=== PATIENT | male | born 1980 | race Caucasian/White ===

== ENCOUNTER 2017-03-19 17:58 | Inpatient (IN) | payer MEDICAID ==
[2017-03-19] MEDS ORDERED: Sodium Chloride 0.9% 1,000 ML IV ONE (18:09)
--- NOTE | 2017-03-19 18:13 | ED Physician Chart ---
Chief Complaint/HPI - Patient Information Date Seen:: 03/19/17 Time Seen:: 18:10 Chief Complaint:: fever History of Present Illness:: pt w severe MR. nonverbal, pt sent from [place] for fever noted today. no gi sx noted. no uri sx noted. recent uti seen on labs. no neuro changes noted. nonambulatory pt w peg tube and chronic hudson. Allergies:: Allergies Allergy/AdvReac Type Severity Reaction Status Date / Time cephalexin monohydrate Allergy Verified 05/14/16 00:16 [From Keflex] Sulfa (Sulfonamide Allergy Verified 05/14/16 00:16 Antibiotics) Historian:: EMS, Other Review:: Transfer documents Reviewed, Patient unable to respond Past Medical History - Past Medical History Past Medical History: DM, Other (cerebral palsey/MR) Social History: Care Facility Surgical History: PEG/GTube, other (indwelling hudson) Medication: Reviewed Family Medical History - Family Member Mother History Unknown: Yes Physical Exam - Physical Examination General/Constitutional: Awake, Well-developed, well-nourished, Alert, No distress, Non-toxic appearing, Ambulatory Other Gen/Cons comments:: nonverbal pt. alert. contractured b legs. peg tube site ok. no focal acute injury . no abd tndrness. nabs pos. lungs clear. hrt reg no m. no edema Head: Atraumatic Eyes: Lids, conjuctiva normal, PERRL, EOMI Skin: Nl inspection, No rash, No skin lesions, No ecchymosis, Well hydrated, No lymphadenopathy ENMT: External ears, nose nl, Nasal exam nl, Lips, teeth, gums nl Neck: Nontender, Full ROM w/o pain, No JVD, No nuchal rigidity, No bruit, No mass, No stridor Respiratory: Nl effort/Exclusion, Clear to Auscultation, No Wheeze/Rhonchi/Rales Cardio Vascular: RRR, No murmur, gallop, rubs, NL S1 S2 GI: No tenderness/rebounding/guarding, No organomegaly, No hernia, Normal BS's, Nondistended, No mass/bruits, No McBurney tenderness : No CVA tenderness Extremities: No tenderness or effusion, Full ROM, No edema, Normal digits & nails Other Extremities comments:: sev chronic contractures b legs Neuro/Psych: Alert/oriented, DTR's symmetric, Normal sensory exam, Normal motor strength, Mood normal, No focal deficits Misc: normal gait, Normal back, No paraspinal tenderness Labs/Radiology/EKG Results - Lab Results Results: Laboratory Tests 03/19/17 03/19/17 18:22 18:22 WBC 10.2 RBC 4.52 Hgb 13.2 Hct 39.5 MCV 87.3 MCH 29.3 MCHC Differential 33.5 RDW 12.8 Plt Count 224 D MPV 9.0 Neutrophils % 72.0 Lymphocytes % 15.1 L Monocytes % 8.8 Eosinophils % 2.0 Basophils % 2.1 H Sodium 134 L Potassium 3.9 Chloride 101 Carbon Dioxide 26.5 Anion Gap 10.4 BUN 27 H Creatinine 0.7 Est GFR ( Amer) > 60.0 Est GFR (Non-Af Amer) > 60.0 BUN/Creatinine Ratio 38.6 Glucose 110 H Calcium 10.1 Total Bilirubin 0.2 L AST 18 ALT 14 Alkaline Phosphatase 60 Total Protein 7.8 Albumin 3.7 L Globulin 4.1 Albumin/Globulin Ratio 0.9 L - Radiology Results Results: cxr nad ED Septic Shock - . Is Septic Shock (SBP<90, OR Lactate>4 mmol\L) present?: No Reassessment (Disposition) - Reassessment Reassessment:: case dw dr shell...will admit for r/o sepsis. pt eval is complicated by pt having no verbal ability. no obv source seen. ua still pending. suspect uti but advise admit for further work up / observation since pt PE eval is limited. Reassessment Condition:: Unchanged - Diagnosis Diagnosis:: 1 febrile illness 2 r/o sepsis 3 cp/mr pt - Patient Disposition Admitted to:: Med/Surg Condition at Disposition:: Unchanged ED Discharge Plan - Patient Disposition Admit/Discharge/Transfer: Acute Care w/in this hosp
[2017-03-19 18:33] LABS: % BASOPHILS 2.1 % (0.0-2.0); % LYMPHOCYTES 15.1 % (20.0-50.0); % MONOCYTES 8.8 % (2.0-10.0); HEMATOCRIT 39.5 % (39.0-49.0); HEMOGLOBIN 13.2 gm/dL (13.2-17.3); MEAN CELL VOLUME 87.3 fl (80-99); MEAN CORPUSCULAR HEMOGLOBIN 29.3 pg (26.0-30.0); MEAN CORPUSCULAR HGB CONC 33.5 pg (28.0-36.0); NEUTROPHILE ABSOLUTE 7.4 Th/cmm (1.8-8.0); RED BLOOD COUNT 4.52 Mil/cmm (4.30-5.70); RED CELL DISTRIBUTION WIDTH 12.8 % (11.5-20.0); WHITE BLOOD COUNT 10.2 Th/cmm (4.8-10.8)
[2017-03-19 18:39] LABS: PLATELET COUNT 224 Th/cmm (150-400)
[2017-03-19 18:52] LABS: ALB/GLOB RATIO 0.9 (1.0-1.8); ALKALINE PHOSPHATASE 60 U/L (34-104); ANION GAP 10.4 (7.0-16.0); BILIRUBIN,TOTAL 0.2 mg/dL (0.3-1.0); BUN - UREA NITROGEN 27 mg/dL (7-25); BUN/CREATININE RATIO 38.6; CALCIUM SERUM 10.1 mg/dL (8.6-10.3); CARBON DIOXIDE 26.5 mEq/L (21.0-31.0); CHLORIDE 101 mEq/L (98-107); CREATININE - SERUM 0.7 mg/dL (0.7-1.3); GLUCOSE 110 mg/dL (70-105); POTASSIUM SERUM 3.9 mEq/L (3.5-5.1); SGOT 18 U/L (13-39); SGPT/ALT 14 U/L (7-52); SODIUM SERUM 134 mEq/L (136-145)
[2017-03-19] MEDS ORDERED: Albuterol Nebulizer 2.5mg/3mL HHN PRN (21:33)
[2017-03-19] MEDS ORDERED: Magnesium Hydroxide (MOM) 30 mL UDC GT PRN (21:33)
[2017-03-19] MEDS: Sodium Chloride 0.9% 1,000 ML IV SCH (22:01)
[2017-03-19] MEDS: Ciprofloxacin 200mg Premix PB 200 MG/100 ML BAG IV SCH (22:02)
[2017-03-20] MEDS: INSULIN ASPART SLIDING SCALE 100 UNITS/ML UNIT SUBQ SCH ×4 (00:02→18:00)
--- NOTE | 2017-03-20 01:49 | Admit Criteria Form ---
Admit Criteria Forms - Admit Criteria Diagnosis: FEBRILE ILLNESS, WITHOUT FOCAL INFECTION Clinical Indications for Admission to Inpatient Care (Place 'X' for any and all applicable criteria): Admission is indicated for ANY ONE of the following (1)(2)(3): [ ] I. Bacteremia [X ]II. Suspected or identified specific infection requiring hospitalization (eg, meningitis, endocarditis) [ ]III. Hemodynamic instability [ ]IV. Altered mental status [ ]V. Failure or unavailability of outpatient antimicrobial treatment [ ]. Hypoxemia [ ]VII. Seizures [ ]VIII. High-risk febrile neutropenia [ ]IX. Need for parenteral antibiotic in patient who is likely to abuse vascular access device (eg, injection drug user) [A](7) [ ]X. Temperature greater than 104.9 degrees F (40.5 degrees C) (oral) [ ]XI. Inpatient admission required rather than observation care because of ANY ONE of the following: [ ]a) Specific infection identified that is too severe for outpatient treatment or observation care trial [ ]b) Metabolic disorder (eg, hypoglycemia, hyperglycemia, metabolic acidosis) that is severe or persistent [ ]c) Temperature greater than 103.1 degrees F (39.5 degrees C) ( oral) that is not responsive to observation care treatment [ ]d) IV fluid to replace significant ongoing (eg, for over 24 hours) losses (> 3 L/m2 per day) [ ]e) Supplemental oxygen or respiratory treatments for over 24 hours that is performable only in acute inpatient setting [ ]f) Parenteral nutrition regimen need that must be implemented on inpatient basis [ ]g) Strict or protective (eg, laminar flow) isolation [ ]h) Other condition, treatment or monitoring requiring inpatient admission Extended stay beyond goal length of stay may be needed for(1)(3) [ ]a) Sepsis or septic shock(22) [ ]b) Positive blood cultures [ ]c) Insufficient oral intake [ ]d) High-risk febrile neutropenia(29)(30) [ ]e) Continued fever and clinical instability [ ]f) Clinically active comorbid illness (e.g,heart failure, renal failure , diabetes) The original [facility] content created by Chai Schultz has been revised. The portions of the content which have been revised are identified through the use of italic text or in bold, and Chai Schultz has neither reviewed nor approved the modified material. All other unmodified content is copyright [facility]. Please see references footnoted in the original [facility] edition 2016 Admit Criteria Met?: Yes
[2017-03-20 07:51] LABS: % BASOPHILS 0.2 % (0.0-2.0); % EOSINOPHILS 3.1 % (0.0-5.0); % LYMPHOCYTES 19.9 % (20.0-50.0); % MONOCYTES 8.7 % (2.0-10.0); % NEUTROPHILS 68.1 % (40.0-80.0); HEMATOCRIT 38.2 % (39.0-49.0); HEMOGLOBIN 12.7 gm/dL (13.2-17.3); MEAN CORPUSCULAR HEMOGLOBIN 29.2 pg (26.0-30.0); MEAN CORPUSCULAR HGB CONC 33.2 pg (28.0-36.0); MEAN PLATELET VOLUME 8.9 fl; NEUTROPHILE ABSOLUTE 4.7 Th/cmm (1.8-8.0); PLATELET COUNT 226 Th/cmm (150-400); RED BLOOD COUNT 4.34 Mil/cmm (4.30-5.70); RED CELL DISTRIBUTION WIDTH 12.7 % (11.5-20.0)
[2017-03-20 08:00] LABS: WHITE BLOOD COUNT 6.9 Th/cmm (4.8-10.8)
[2017-03-20 08:17] LABS: ALB/GLOB RATIO 0.9 (1.0-1.8); ALKALINE PHOSPHATASE 58 U/L (34-104); ANION GAP 9.7 (7.0-16.0); BILIRUBIN,TOTAL 0.3 mg/dL (0.3-1.0); BUN - UREA NITROGEN 22 mg/dL (7-25); BUN/CREATININE RATIO 36.7; CALCIUM SERUM 9.1 mg/dL (8.6-10.3); CARBON DIOXIDE 23.9 mEq/L (21.0-31.0); CHLORIDE 109 mEq/L (98-107); CREATININE - SERUM 0.6 mg/dL (0.7-1.3); GLUCOSE 111 mg/dL (70-105); MAGNESIUM 2.1 mg/dL (1.9-2.7); POTASSIUM SERUM 3.6 mEq/L (3.5-5.1); SGOT 17 U/L (13-39); SGPT/ALT 12 U/L (7-52); SODIUM SERUM 139 mEq/L (136-145)
--- NOTE | 2017-03-20 09:57 | Diagnostic Imaging Report ---
Portable chest x-ray HISTORY: Fever Compared with prior exam of 03/19/2017, no acute focal pulmonary processes are seen. Allowing for portable technique in a poor inspiration, the heart size is normal. Scoliosis again noted. IMPRESSION: 1. No change with no acute focal pulmonary processes.
--- NOTE | 2017-03-20 09:59 | Diagnostic Imaging Report ---
Portable chest x-ray HISTORY: Fever No focal pulmonary processes. Allowing for a poor inspiration and portable technique, the heart size appears normal. Dilated loops of bowel noted beneath the diaphragm. IMPRESSION: 1. No acute focal pulmonary processes
[2017-03-20] MEDS: Ciprofloxacin 200mg Premix PB 200 MG/100 ML BAG IV SCH ×2 (10:13→20:33)
--- NOTE | 2017-03-20 10:14 | Diagnostic Imaging Report ---
KUB abdominal film HISTORY: Pain Exam demonstrates a severely distended stool-filled ascending colon and rectum. Findings consistent with fecal impaction/constipation. Additional nondilated small and large bowel seen. No free intraperitoneal air. Surgical changes noted about the femoral regions bilaterally. IMPRESSION: 1. Severely distended stool-filled ascending colon and rectum consistent with fecal impaction/constipation.
[2017-03-20] MEDS: Ascorbic Acid 500 mg/5 mL UDC GT SCH (10:15)
[2017-03-20] MEDS ORDERED: VTE Chemical Prophylaxis Screen/Admission MC PRN (10:30)
[2017-03-20] MEDS ORDERED: GLUCAGON HCl 1 MG KIT IM PRN (11:23)
[2017-03-20] MEDS ORDERED: Fleet Enema 135 mL RC PRN ×2 (11:23→11:26)
--- NOTE | 2017-03-20 14:38 | History & Physical ---
ADMIT DATE: 03/19/2017 CHIEF COMPLAINT: Fevers. HISTORY OF PRESENT ILLNESS: This is a 36-year-old gentleman who lives at [facility] who was history of severe mental retardation, cerebral palsy, history of previous episodes of seizure disorder, dysphagia, status post PEG placement, history of previous femur fracture, suprapubic cath placement and stage IV decubitus ulcer who presented to the ER with an episode of fevers. There is no other history available as patient is nonverbal. Workup at the ER was essentially negative, but given his comorbidities, he has been admitted for further management and care. Labs have been essentially negative and we are awaiting UA result. PAST MEDICAL HISTORY: As noted above. PAST SURGERIES: PEG and suprapubic cath placement. FAMILY HISTORY: Unknown. SOCIAL HISTORY: No tobacco, ETOH. Lives at [facility]. ALLERGIES: ROCEPHIN, KEFLEX AND SULFA. OUTPATIENT MEDICATIONS: Insulin sliding scale, milk of magnesia p.r.n., multivitamins every day, oxybutynin 5 mg 3 times a day, calcium with vitamin D twice a day, Senna 5 mL twice a day, Trileptal 300 mg 2 times a day, Tylenol p.r.n. for pain, cranberry juice 30 mL b.i.d. and vitamin C every day. REVIEW OF SYSTEMS: Unable to be done given patient's condition. PHYSICAL EXAMINATION: VITAL SIGNS: Temperature 97.9, he has been afebrile since admission, pulse 85, respirations 18, BP 112/67, satting 95% on room air. GENERAL: Developmentally delayed male, not in acute distress, appears to be comfortable. HEAD AND NECK: There is no JVD or LAD. CARDIOVASCULAR: Regular rate and rhythm without any murmurs. RESPIRATORY: Lungs are clear to auscultation bilaterally. ABDOMEN: Somewhat mildly distended. Normoactive bowel sounds. Soft, supple, nontender. There are no peritoneal signs. PEG tube is in place, appears to be clean, dry and intact. Suprapubic cath in place. LOWER EXTREMITIES: There are contracted, but there is no pedal edema. LABORATORY DATA: CBC was essentially within normal limits with 15% lymphs. Sodium 134, BUN 27. The rest of the chemistry was normal. LFTs were within normal limits. DIAGNOSTICS: Chest x-ray, no acute pulmonary processes, the previous x-ray was March 19, today's x-ray, no changes with no acute focal pulmonary processes. KUB shows severely distended stool filled ascending colon and rectum consistent with fecal impaction and constipation. IMPRESSION: 1. Fever, rule out sepsis. At this stage, possible culprit would be urinary tract infection given his history versus intraabdominal infection given his KUB findings. 2. Fecal impaction, constipation. 3. History of mental retardation/intellectual disability. 4. History of seizure disorder. 5. History of urinary tract infections. 6. History of suprapubic cath placement. PLAN: The patient has been admitted to the medical/surgical floor for further management and care. He has been placed on ciprofloxacin empirically at 200 mg IV q. 12 and IV fluids at 75 mL per hour NS. His medications have been continued. Given his findings on the KUB, I will ask for a Fleet enema and will also give him lactulose and will continue his constipation medications. We will await UA with Rosalee and Yanci. JOB# [id number] [facility]
[2017-03-20] MEDS: Lactulose 10 Gm/15 mL 30mL UDC PO SCH (16:17)
[2017-03-20] MEDS: Sodium Chloride 0.9% 1,000 ML IV SCH (16:24)
[2017-03-20] MEDS: Non-Formulary Item 1 EA (Cran/Vitc/Mannose/Fos/Bromeln [Uti-Stat Liquid] 30 ML) GT SCH (16:31)
[2017-03-20 19:43] LABS: URINE BILIRUBIN NEGATIVE (NEGATIVE); URINE BLOOD MODERATE (NEGATIVE); URINE COLOR YELLOW; URINE GLUCOSE (UA) NEGATIVE (NEGATIVE); URINE KETONE NEGATIVE (NEGATIVE); URINE PH 7.5; URINE PROTEIN 30 mg/dL (NEGATIVE); URINE UROBILINOGEN 0.2 E.U./dL (0.2 - 1.0)
[2017-03-20 19:44] LABS: URINE BACTERIA MANY /hpf (NONE SEEN); URINE EPITHELIAL CELLS FEW /lpf (FEW); URINE TRIPLE PHOSPHATE CRYSTAL MODERATE /hpf (FEW)
[2017-03-20 21:30] LABS: URINE WBC 25-50 /hpf (0-5)
[2017-03-21] MEDS: INSULIN ASPART SLIDING SCALE 100 UNITS/ML UNIT SUBQ SCH ×4 (00:24→19:05)
[2017-03-21 05:33] LABS: % BASOPHILS 0.6 % (0.0-2.0); % EOSINOPHILS 2.2 % (0.0-5.0); % NEUTROPHILS 69.2 % (40.0-80.0); HEMATOCRIT 37.7 % (39.0-49.0); HEMOGLOBIN 12.6 gm/dL (13.2-17.3); MEAN CELL VOLUME 87.2 fl (80-99); MEAN CORPUSCULAR HEMOGLOBIN 29.2 pg (26.0-30.0); MEAN CORPUSCULAR HGB CONC 33.5 pg (28.0-36.0); MEAN PLATELET VOLUME 9.6 fl; NEUTROPHILE ABSOLUTE 4.4 Th/cmm (1.8-8.0); PLATELET COUNT 244 Th/cmm (150-400); RED BLOOD COUNT 4.32 Mil/cmm (4.30-5.70); RED CELL DISTRIBUTION WIDTH 12.9 % (11.5-20.0); WHITE BLOOD COUNT 6.3 Th/cmm (4.8-10.8)
[2017-03-21 05:56] LABS: ANION GAP 10.8 (7.0-16.0); BUN - UREA NITROGEN 16 mg/dL (7-25); CALCIUM SERUM 9.2 mg/dL (8.6-10.3); CARBON DIOXIDE 25.3 mEq/L (21.0-31.0); CHLORIDE 108 mEq/L (98-107); CREATININE - SERUM 0.5 mg/dL (0.7-1.3); GLUCOSE 150 mg/dL (70-105); MAGNESIUM 2.1 mg/dL (1.9-2.7); POTASSIUM SERUM 3.1 mEq/L (3.5-5.1); SODIUM SERUM 141 mEq/L (136-145)
[2017-03-21] MEDS: Lactulose 10 Gm/15 mL 30mL UDC PO SCH ×2 (08:23→16:26)
[2017-03-21] MEDS: Ascorbic Acid 500 mg/5 mL UDC GT SCH (08:23)
[2017-03-21] MEDS: Ciprofloxacin 200mg Premix PB 200 MG/100 ML BAG IV SCH ×2 (08:24→21:55)
[2017-03-21 09:18] LABS: INR 1.03 (0.5-1.4); PROTHROMBIN TIME (TEST) 10.7 SECONDS (9.5-11.5)
[2017-03-21] MEDS: KCL 20mEq/100mL Premix 20 MEQ/100 ML PIGGYBACK IV SCH ×2 (10:42→12:56)
[2017-03-21] MEDS: Non-Formulary Item 1 EA (Cran/Vitc/Mannose/Fos/Bromeln [Uti-Stat Liquid] 30 ML) GT SCH ×2 (12:41→16:26)
[2017-03-21] MEDS: Sodium Chloride 0.9% 1,000 ML IV SCH (12:54)
[2017-03-22] MEDS: INSULIN ASPART SLIDING SCALE 100 UNITS/ML UNIT SUBQ SCH ×4 (01:29→17:21)
[2017-03-22] MEDS: Sodium Chloride 0.9% 1,000 ML IV SCH ×2 (03:55→21:07)
[2017-03-22 05:18] LABS: % BASOPHILS 1.2 % (0.0-2.0); % MONOCYTES 3.6 % (2.0-10.0); % NEUTROPHILS 78.2 % (40.0-80.0); HEMOGLOBIN 12.8 gm/dL (13.2-17.3); MEAN CELL VOLUME 87.2 fl (80-99); MEAN CORPUSCULAR HEMOGLOBIN 29.3 pg (26.0-30.0); MEAN CORPUSCULAR HGB CONC 33.5 pg (28.0-36.0); MEAN PLATELET VOLUME 9.7 fl; NEUTROPHILE ABSOLUTE 7.2 Th/cmm (1.8-8.0); PLATELET COUNT 283 Th/cmm (150-400); RED BLOOD COUNT 4.36 Mil/cmm (4.30-5.70); RED CELL DISTRIBUTION WIDTH 12.8 % (11.5-20.0)
[2017-03-22 05:26] LABS: ANION GAP 11.1 (7.0-16.0); BUN - UREA NITROGEN 12 mg/dL (7-25); CARBON DIOXIDE 23.6 mEq/L (21.0-31.0); CHLORIDE 108 mEq/L (98-107); CREATININE - SERUM 0.5 mg/dL (0.7-1.3); GLUCOSE 118 mg/dL (70-105); SODIUM SERUM 140 mEq/L (136-145)
[2017-03-22 05:38] LABS: WHITE BLOOD COUNT 9.2 Th/cmm (4.8-10.8)
[2017-03-22 06:23] LABS: POTASSIUM SERUM 2.7 mEq/L (3.5-5.1)
--- NOTE | 2017-03-22 08:26 | General Progress Note ---
Subjective - Review of Systems Service Date: 03/22/17 Subjective: Non verbal Objective - Results Result Diagrams: 03/22/17 04:35 03/22/17 04:35 Recent Labs: Laboratory Last Values WBC 9.2 Th/cmm (4.8-10.8) D 03/22/17 04:35 RBC 4.36 Mil/cmm (4.30-5.70) 03/22/17 04:35 Hgb 12.8 gm/dL (13.2-17.3) L 03/22/17 04:35 Hct 38.0 % (39.0-49.0) L 03/22/17 04:35 MCV 87.2 fl (80-99) 03/22/17 04:35 MCH 29.3 pg (26.0-30.0) 03/22/17 04:35 MCHC Differential 33.5 pg (28.0-36.0) 03/22/17 04:35 RDW 12.8 % (11.5-20.0) 03/22/17 04:35 Plt Count 283 Th/cmm (150-400) 03/22/17 04:35 MPV 9.7 fl 03/22/17 04:35 Neutrophils % 78.2 % (40.0-80.0) 03/22/17 04:35 Lymphocytes % 16.0 % (20.0-50.0) L 03/22/17 04:35 Monocytes % 3.6 % (2.0-10.0) 03/22/17 04:35 Eosinophils % 1.0 % (0.0-5.0) 03/22/17 04:35 Basophils % 1.2 % (0.0-2.0) 03/22/17 04:35 PT 10.7 SECONDS (9.5-11.5) 03/21/17 04:40 INR 1.03 (0.5-1.4) 03/21/17 04:40 Sodium 140 mEq/L (136-145) 03/22/17 04:35 Potassium 2.7 mEq/L (3.5-5.1) L* 03/22/17 04:35 Chloride 108 mEq/L (98-107) H 03/22/17 04:35 Carbon Dioxide 23.6 mEq/L (21.0-31.0) 03/22/17 04:35 Anion Gap 11.1 (7.0-16.0) 03/22/17 04:35 BUN 12 mg/dL (7-25) 03/22/17 04:35 Creatinine 0.5 mg/dL (0.7-1.3) L 03/22/17 04:35 Est GFR ( Amer) > 60.0 ml/min (>90) 03/22/17 04:35 Est GFR (Non-Af Amer) > 60.0 ml/min 03/22/17 04:35 BUN/Creatinine Ratio 24.0 03/22/17 04:35 Glucose 118 mg/dL (70-105) H 03/22/17 04:35 POC Glucose 116 MG/DL (70 - 105) H 03/22/17 06:15 Hemoglobin A1c % 6.0 % (4.0-6.0) 03/20/17 07:35 Whole Bld Lactic Acid 0.53 mmol/L (0.60-1.99) L 03/20/17 07:35 Calcium 9.0 mg/dL (8.6-10.3) 03/22/17 04:35 Magnesium 2.1 mg/dL (1.9-2.7) 03/21/17 04:40 Total Bilirubin 0.3 mg/dL (0.3-1.0) 03/20/17 07:35 AST 17 U/L (13-39) 03/20/17 07:35 ALT 12 U/L (7-52) 03/20/17 07:35 Alkaline Phosphatase 58 U/L (34-104) 03/20/17 07:35 Total Protein 7.1 gm/dL (6.0-8.3) 03/20/17 07:35 Albumin 3.4 gm/dL (4.2-5.5) L 03/20/17 07:35 Globulin 3.7 gm/dL 03/20/17 07:35 Albumin/Globulin Ratio 0.9 (1.0-1.8) L 03/20/17 07:35 Urine Source RANDOM 03/20/17 18:50 Urine Color YELLOW 03/20/17 18:50 Urine Clarity HAZY (CLEAR) 03/20/17 18:50 Urine pH 7.5 03/20/17 18:50 Ur Specific [place] 1.015 (1.005-1.030) 03/20/17 18:50 Urine Protein 30 mg/dL (NEGATIVE) H 03/20/17 18:50 Urine Glucose (UA) NEGATIVE mg/dL (NEGATIVE) 03/20/17 18:50 Urine Ketones NEGATIVE mg/dL (NEGATIVE) 03/20/17 18:50 Urine Blood MODERATE (NEGATIVE) H 03/20/17 18:50 Urine Nitrate POSITIVE (NEGATIVE) H 03/20/17 18:50 Urine Bilirubin NEGATIVE (NEGATIVE) 03/20/17 18:50 Urine Urobilinogen 0.2 E.U./dL (0.2 - 1.0) 03/20/17 18:50 Ur Leukocyte Esterase SMALL (NEGATIVE) H 03/20/17 18:50 Urine RBC 5-10 /hpf (0-5) H 03/20/17 18:50 Urine WBC 25-50 /hpf (0-5) H 03/20/17 18:50 Ur Epithelial Cells FEW /lpf (FEW) 03/20/17 18:50 Triple Phos Crystals MODERATE /hpf (FEW) 03/20/17 18:50 Urine Bacteria MANY /hpf (NONE SEEN) 03/20/17 18:50 - Physical Exam Vitals and I&O: Vital Signs Temp 99.6 F 03/22/17 08:00 Pulse 95 03/22/17 08:00 Resp 18 03/22/17 08:00 BP 115/70 03/22/17 08:00 Pulse Ox 96 03/22/17 08:00 Intake & Output 03/21/17 03/22/17 03/22/17 18:59 06:59 18:59 Intake Total 200 1000 360 Output Total 750 Balance 200 1000 -390 Weight (lbs) 57.561 kg 57.561 kg Intake: Intake, IV Amount 200 1000 Ciprofloxacin 200mg 100 Premix PB 200 mg In 100 ml @ 100 mls/hr IV Q12HR HUBERT Rx#:[id number] KCL 20mEq/100mL Premix 20 100 meq In 100 ml @ 50 mls/ hr IV Q2H HUBERT Rx#: [id number] Sodium Chloride 0.9% 1, 1000 000 ml @ 75 mls/hr IV . [id number] HUBERT Rx#:[id number] Tube Feeding 360 Output: Urine 750 Other: # Bowel Movements 1 Active Medications: Current Medications Acetaminophen (Tylenol 650mg/20.3ml Suspension) 650 mg GT Q4HR PRN PRN Reason: Pain Or Fever >99.9 Stop: 05/18/17 21:32 Last Admin: 03/21/17 12:08 Dose: 650 mg Albuterol Sulfate (Albuterol 2.5mg/3ml Neb Ud) 2.5 mg HHN Q4H PRN PRN Reason: Shortness of Breath Ascorbic Acid (Vitamin C) 500 mg GT DAILY [facility] Stop: 05/19/17 08:59 Last Admin: 03/21/17 08:23 Dose: 500 mg Bisacodyl (Dulcolax 10 Mg Supp) 10 mg RC Q96H PRN PRN Reason: Constipation Stop: 05/18/17 21:32 Dextrose (Glutose 40%) 15 gm PO PRN PRN PRN Reason: hypoglycemia Stop: 05/19/17 11:22 Glucagon (Glucagen) 1 mg IM PRN PRN PRN Reason: hypoglycemia Stop: 05/19/17 11:22 Heparin Sodium (Porcine) (Heparin) 5,000 units SUBQ Q12HR [facility] Stop: 05/19/17 20:59 Last Admin: 03/21/17 22:06 Dose: Not Given Ciprofloxacin (Cipro 200mg Premix Pb) 200 mg in 100 mls @ 100 mls/hr IV Q12HR [facility] Stop: 05/18/17 21:59 Last Admin: 03/21/17 21:55 Dose: 100 mls/hr Sodium Chloride (Nacl 0.9%) 1,000 mls @ 75 mls/hr IV .[id number] [facility] Stop: 05/18/17 21:32 Last Admin: 03/22/17 03:55 Dose: 75 mls/hr Potassium Chloride (Potassium Chloride) 20 meq in 100 mls @ 50 mls/hr IV Q2H [facility] Stop: 03/22/17 12:15 Insulin Aspart (Novolog Insulin Sliding Scale) 0 units SUBQ Q6HR HUBERT PRN Reason: Protocol Stop: 05/19/17 00:00 Last Admin: 03/22/17 08:11 Dose: Not Given Lactulose (Cephulac) 30 gm PO BID [facility] Stop: 05/19/17 16:59 Last Admin: 03/21/17 16:26 Dose: 30 gm Magnesium Hydroxide (Milk Of Magnesia) 30 ml GT Q72HR PRN PRN Reason: Constipation Stop: 05/18/17 21:32 Miscellaneous (Vte Chemical Prophylaxis Screen/ Admission) 1 ea MC PRN PRN PRN Reason: PROTOCOL Stop: 05/19/17 10:29 Miscellaneous (Cran/Vitc/Mannose/Fos/Bromeln [Uti-Stat Liquid]) 30 ml GT BID HUBERT Stop: 05/19/17 16:59 Last Admin: 03/21/17 16:26 Dose: Not Given Oxcarbazepine (Trileptal) 300 mg GT BID HUBERT PRN Reason: Protocol Stop: 05/19/17 08:59 Last Admin: 03/21/17 16:25 Dose: 300 mg Oxybutynin Chloride (Ditropan) 5 mg GT TID HUBERT Stop: 05/18/17 21:32 Last Admin: 03/21/17 21:57 Dose: 5 mg Senna (Senna) 8.6 mg GT BID HUBERT Stop: 05/19/17 08:59 Last Admin: 03/21/17 16:25 Dose: 8.6 mg Sodium Phosphate (Fleet Enema) 135 ml RC Q96H PRN PRN Reason: Constipation Stop: 05/19/17 11:22 Sodium Phosphate (Fleet Enema) 135 ml RC PRN PRN PRN Reason: Constipation Stop: 05/19/17 11:25 General: Alert, Other (Non verbal) HEENT: Atraumatic Neck: Supple Cardiovascular: Regular rate Lungs: Clear to auscultation Abdomen: Bowel sounds, Other (A little distended, Suprapubic catheter licking. ) Extremities: Other (No edema) Neurological: Other (Non ambulatory) Skin: Other (Warm and dry) Psych/Mental Status: Other (Confused, non verbal.) - Procedures Procedures: Procedures Procedure Code Date NUBIA SUBQ TISSUE 20 SQ CM/< 30390 06/21/13 INJECT ANTIBIOTIC 99.21 11/07/12 INSERT TEMP BLADDER CATH 97543 11/07/12 NONEXCIS DEBRID OF WOUND, INFECT, OR BURN 86.28 06/21/13 REPLACE INDWELLING CATH 57.95 11/07/12 Assessment/Plan - Problem List Patient Problems: All Active Problems FEVER WITH ABNORMAL LABS AND WBC (Acute) Decubitus ulcer (Active) L89.90 Fever (Active) R50.9 Urine screening abnormal (Active) - Assessment Assessment: Patient is awake, confused, not responding to verbal commands. Suprapubic catheter is licking, Urine continue been dark, he had fever yesterday. Per nurse report patient had a "big" bowel movement. Patient is not going to be transfer to [facility]. - Plan Plan: Awaiting abdominal and pelvic US. Will continue to monitor. Nutritional Asmnt/Malnutr-PDOC - Dietary Evaluation Malnutrition Findings (Please click <Entered> for more info): Nutritional Asmnt/Malnutrition Start: 03/21/17 16: 15 Text: Status: Complete Freq: Document 03/21/17 16:18 GSUN (Rec: 03/21/17 16:25 GSUN [email or web address]) Nutritional Asmnt/Malnutrition Patient General Information Nutritional Screening High Risk Screening Diagnosis Fevere r/o sepsis, possible UTI vs intraabdominal infection, fecal impactio Pertinent Medical Hx/Surgical Hx Severe mental retardation, cerebral palsy, seizure disorder, dysphagia with PEG, femur frature, suprapubic cath placement, stage IV decubitus ulcer Subjective Information 36 year old male from SNF. KUB: severely distended stool-filled colon and rectum. Visited pt with RN at bedside . Pt made eye contact with RD, non-verbal, no significant wasting noted. Obsered tube feeding off at this time. RN stated pt had 1 BM overnight, continues to have fever, abdomen distended but soft. Pt tolerating tube feeding well per RN notes and assessments. Current Diet Order/ Nutrition Support Diabetisource at 80ml/hr x 16hrs/day Pertinent Medications Vitamin C, Dulcolax, Glutose 40%, Glucagen, Novolog, MOM, Senna, Nacl 0.9%, Fleet Enema Pertinent Labs 03/20: A1c 6 03/21: glucose 150H Nutritional Hx/Data Height 1.55 m Height (Calculated Centimeters) 154.9 Current Weight (lbs) 56.699 kg Weight (Calculated Kilograms) 56.7 Weight (Calculated Grams) 17505.0 [place] Body Weight 112 Weight Status Approriate GI Symptoms GI Symptoms Constipation Usual diet at home [facility]: Glucerna at 80ml/hr x 16hrs/day Skin Integrity/Comment: Rolando Valdivia. 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 Problem Problem Difficulty swallowing related to Etiology dysphagia severe mental retardation aeb Signs/Symptoms: PEG dependent Intervention/Recommendation Comments 1. Continue with SNF order Diabetisource 80ml/hr x 16hrs/ day, providing 1536kcal and 77g protein, meeting nutritional needs. Expected Outcomes/Goals Expected Outcomes/Goals 1. Pt continue to meet 100% of estimated nutritional needs on tube feeding with tolerance .
[2017-03-22] MEDS: Ciprofloxacin 200mg Premix PB 200 MG/100 ML BAG IV SCH ×2 (09:15→21:00)
[2017-03-22] MEDS: Ascorbic Acid 500 mg/5 mL UDC GT SCH (10:45)
[2017-03-22] MEDS: Lactulose 10 Gm/15 mL 30mL UDC PO SCH ×2 (10:45→17:21)
[2017-03-22] MEDS: KCL 20mEq/100mL Premix 20 MEQ/100 ML PIGGYBACK IV SCH ×2 (11:02→13:19)
[2017-03-22] MEDS: Non-Formulary Item 1 EA (Cran/Vitc/Mannose/Fos/Bromeln [Uti-Stat Liquid] 30 ML) GT SCH ×2 (11:33→17:23)
[2017-03-23] MEDS: INSULIN ASPART SLIDING SCALE 100 UNITS/ML UNIT SUBQ SCH ×4 (00:05→18:18)
[2017-03-23 07:19] LABS: HEMATOCRIT 37.8 % (39.0-49.0); HEMOGLOBIN 12.6 gm/dL (13.2-17.3); MEAN CELL VOLUME 87.3 fl (80-99); MEAN CORPUSCULAR HEMOGLOBIN 29.1 pg (26.0-30.0); MEAN CORPUSCULAR HGB CONC 33.3 pg (28.0-36.0); MEAN PLATELET VOLUME 9.1 fl; NEUTROPHILE ABSOLUTE 12.7 Th/cmm (1.8-8.0); PLATELET COUNT 292 Th/cmm (150-400); RED BLOOD COUNT 4.34 Mil/cmm (4.30-5.70); RED CELL DISTRIBUTION WIDTH 12.7 % (11.5-20.0)
[2017-03-23 07:34] LABS: ALB/GLOB RATIO 0.9 (1.0-1.8); ALKALINE PHOSPHATASE 52 U/L (34-104); ANION GAP 8.7 (7.0-16.0); BILIRUBIN,TOTAL 0.3 mg/dL (0.3-1.0); BUN - UREA NITROGEN 14 mg/dL (7-25); CALCIUM SERUM 8.9 mg/dL (8.6-10.3); CHLORIDE 107 mEq/L (98-107); CREATININE - SERUM 0.4 mg/dL (0.7-1.3); GLUCOSE 152 mg/dL (70-105); SGOT 17 U/L (13-39); SGPT/ALT 14 U/L (7-52); SODIUM SERUM 138 mEq/L (136-145)
[2017-03-23 07:35] LABS: WHITE BLOOD COUNT 14.1 Th/cmm (4.8-10.8)
[2017-03-23 07:51] LABS: POTASSIUM SERUM 2.7 mEq/L (3.5-5.1)
[2017-03-23 07:59] LABS: URINE COLOR YELLOW; URINE GLUCOSE (UA) NEGATIVE (NEGATIVE)
[2017-03-23 08:00] LABS: URINE BILIRUBIN NEGATIVE (NEGATIVE); URINE KETONE NEGATIVE (NEGATIVE); URINE PROTEIN 100 mg/dL (NEGATIVE); URINE UROBILINOGEN 0.2 E.U./dL (0.2 - 1.0)
[2017-03-23 08:03] LABS: URINE EPITHELIAL CELLS FEW /lpf (FEW); URINE WBC 25-50 /hpf (0-5)
[2017-03-23 08:04] LABS: URINE BACTERIA 2+ /hpf (NONE SEEN)
[2017-03-23 08:08] LABS: URINE BLOOD MODERATE (NEGATIVE)
[2017-03-23 08:09] LABS: TOTAL CELLS COUNTED 100
[2017-03-23 08:10] LABS: BAND NEUTROPHILE 7 % (0-10); NEUTROPHILS 79 % (40-80); PLATELET ESTIMATE ADEQUATE (NORMAL)
[2017-03-23] MEDS: Ciprofloxacin 200mg Premix PB 200 MG/100 ML BAG IV SCH ×2 (09:00→20:54)
[2017-03-23] MEDS: Ascorbic Acid 500 mg/5 mL UDC GT SCH (09:02)
--- NOTE | 2017-03-23 09:10 | Diagnostic Imaging Report ---
Renal ultrasound HISTORY: Hematuria The right kidney is normal in size (10.5 x 4.9 x 5.5 cm). No focal parenchymal lesions. Mild dilatation of the right renal collecting system. The left kidney is normal in size (11.8 x 5.2 x 5.1 cm). No definite focal lesions. No hydronephrosis. The urinary bladder cannot be evaluated due to lack of distention the presence of a Li catheter. IMPRESSION: 1. Mild dilatation of the right renal collecting system 2. No focal parenchymal renal lesions
[2017-03-23] MEDS: Lactulose 10 Gm/15 mL 30mL UDC PO SCH ×2 (09:13→21:08)
[2017-03-23] MEDS ORDERED: Potassium Chloride 40 MEQ, Lidocaine 1% 20mL Vial 25 MG in Sodium Chloride 0.9% 250 ML IV ONE (10:22)
--- NOTE | 2017-03-23 12:05 | General Progress Note ---
Subjective - Review of Systems Service Date: 03/23/17 Subjective: Non verbal Objective - Results Result Diagrams: 03/23/17 06:43 03/23/17 06:43 Recent Labs: Laboratory Last Values WBC 14.1 Th/cmm (4.8-10.8) H D 03/23/17 06:43 RBC 4.34 Mil/cmm (4.30-5.70) 03/23/17 06:43 Hgb 12.6 gm/dL (13.2-17.3) L 03/23/17 06:43 Hct 37.8 % (39.0-49.0) L 03/23/17 06:43 MCV 87.3 fl (80-99) 03/23/17 06:43 MCH 29.1 pg (26.0-30.0) 03/23/17 06:43 MCHC Differential 33.3 pg (28.0-36.0) 03/23/17 06:43 RDW 12.7 % (11.5-20.0) 03/23/17 06:43 Plt Count 292 Th/cmm (150-400) 03/23/17 06:43 MPV 9.1 fl 03/23/17 06:43 Neutrophils % 78.2 % (40.0-80.0) 03/22/17 04:35 Band Neutrophils % 7 % (0-10) 03/23/17 06:43 Lymphocytes % 16.0 % (20.0-50.0) L 03/22/17 04:35 Monocytes % 3.6 % (2.0-10.0) 03/22/17 04:35 Eosinophils % 1.0 % (0.0-5.0) 03/22/17 04:35 Basophils % 1.2 % (0.0-2.0) 03/22/17 04:35 Neutrophils (Manual) 79 % (40-80) 03/23/17 06:43 Lymphocytes 10 % (20-50) L 03/23/17 06:43 Monocytes 4 % (2-10) 03/23/17 06:43 Platelet Estimate ADEQUATE (NORMAL) 03/23/17 06:43 PT 10.7 SECONDS (9.5-11.5) 03/21/17 04:40 INR 1.03 (0.5-1.4) 03/21/17 04:40 Sodium 138 mEq/L (136-145) 03/23/17 06:43 Potassium 2.7 mEq/L (3.5-5.1) L* 03/23/17 06:43 Chloride 107 mEq/L (98-107) 03/23/17 06:43 Carbon Dioxide 25.0 mEq/L (21.0-31.0) 03/23/17 06:43 Anion Gap 8.7 (7.0-16.0) 03/23/17 06:43 BUN 14 mg/dL (7-25) 03/23/17 06:43 Creatinine 0.4 mg/dL (0.7-1.3) L 03/23/17 06:43 Est GFR ( Amer) > 60.0 ml/min (>90) 03/23/17 06:43 Est GFR (Non-Af Amer) > 60.0 ml/min 03/23/17 06:43 BUN/Creatinine Ratio 35.0 03/23/17 06:43 Glucose 152 mg/dL (70-105) H 03/23/17 06:43 POC Glucose 141 MG/DL (70 - 105) H 03/23/17 06:03 Hemoglobin A1c % 6.0 % (4.0-6.0) 03/20/17 07:35 Whole Bld Lactic Acid 0.53 mmol/L (0.60-1.99) L 03/20/17 07:35 Calcium 8.9 mg/dL (8.6-10.3) 03/23/17 06:43 Magnesium 2.1 mg/dL (1.9-2.7) 03/21/17 04:40 Total Bilirubin 0.3 mg/dL (0.3-1.0) 03/23/17 06:43 AST 17 U/L (13-39) 03/23/17 06:43 ALT 14 U/L (7-52) 03/23/17 06:43 Alkaline Phosphatase 52 U/L (34-104) 03/23/17 06:43 Total Protein 7.3 gm/dL (6.0-8.3) 03/23/17 06:43 Albumin 3.5 gm/dL (4.2-5.5) L 03/23/17 06:43 Globulin 3.8 gm/dL 03/23/17 06:43 Albumin/Globulin Ratio 0.9 (1.0-1.8) L 03/23/17 06:43 Urine Source [place] 03/23/17 05:30 Urine Color YELLOW 03/23/17 05:30 Urine Clarity HAZY (CLEAR) 03/23/17 05:30 Urine pH 7.0 03/23/17 05:30 Ur Specific [place] 1.020 (1.005-1.030) 03/23/17 05:30 Urine Protein 100 mg/dL (NEGATIVE) H 03/23/17 05:30 Urine Glucose (UA) NEGATIVE mg/dL (NEGATIVE) 03/23/17 05:30 Urine Ketones NEGATIVE mg/dL (NEGATIVE) 03/23/17 05:30 Urine Blood MODERATE (NEGATIVE) H 03/23/17 05:30 Urine Nitrate POSITIVE (NEGATIVE) H 03/23/17 05:30 Urine Bilirubin NEGATIVE (NEGATIVE) 03/23/17 05:30 Urine Urobilinogen 0.2 E.U./dL (0.2 - 1.0) 03/23/17 05:30 Ur Leukocyte Esterase LARGE (NEGATIVE) H 03/23/17 05:30 Urine RBC 5-10 /hpf (0-5) H 03/23/17 05:30 Urine WBC 25-50 /hpf (0-5) H 03/23/17 05:30 Ur Epithelial Cells FEW /lpf (FEW) 03/23/17 05:30 Triple Phos Crystals MODERATE /hpf (FEW) 03/20/17 18:50 Urine Bacteria 2+ /hpf (NONE SEEN) H 03/23/17 05:30 - Physical Exam Vitals and I&O: Vital Signs Temp 100.3 F 03/23/17 11:52 Pulse 101 03/23/17 11:52 Resp 21 03/23/17 11:52 BP 117/78 03/23/17 11:52 Pulse Ox 95 03/23/17 11:52 Intake & Output 03/22/17 03/23/17 03/23/17 18:59 06:59 18:59 Intake Total 1560 100 Output Total 750 1000 Balance 810 -900 Weight (lbs) 57.561 kg 57.153 kg Intake: Intake, IV Amount 1200 100 Ciprofloxacin 200mg 100 100 Premix PB 200 mg In 100 ml @ 100 mls/hr IV Q12HR [facility] Rx#:[id number] KCL 20mEq/100mL Premix 20 100 meq In 100 ml @ 50 mls/ hr IV Q2H [facility] Rx#: [id number] Sodium Chloride 0.9% 1, 1000 000 ml @ 75 mls/hr IV . [id number] [facility] Rx#:[id number] Tube Feeding 360 Output: Urine 750 1000 Other: # Voids 1 # Bowel Movements 1 1 Stool Characteristics Soft Soft Brown Brown Active Medications: Current Medications Acetaminophen (Tylenol 650mg/20.3ml Suspension) 650 mg GT Q4HR PRN PRN Reason: Pain Or Fever >99.9 Stop: 05/18/17 21:32 Last Admin: 03/22/17 15:44 Dose: 650 mg Albuterol Sulfate (Albuterol 2.5mg/3ml Neb Ud) 2.5 mg HHN Q4H PRN PRN Reason: Shortness of Breath Ascorbic Acid (Vitamin C) 500 mg GT DAILY [facility] Stop: 05/19/17 08:59 Last Admin: 03/23/17 09:02 Dose: 500 mg Bisacodyl (Dulcolax 10 Mg Supp) 10 mg RC Q96H PRN PRN Reason: Constipation Stop: 05/18/17 21:32 Dextrose (Glutose 40%) 15 gm PO PRN PRN PRN Reason: hypoglycemia Stop: 05/19/17 11:22 Glucagon (Glucagen) 1 mg IM PRN PRN PRN Reason: hypoglycemia Stop: 05/19/17 11:22 Heparin Sodium (Porcine) (Heparin) 5,000 units SUBQ Q12HR [facility] Stop: 05/19/17 20:59 Last Admin: 03/23/17 09:03 Dose: 5,000 units Ciprofloxacin (Cipro 200mg Premix Pb) 200 mg in 100 mls @ 100 mls/hr IV Q12HR [facility] Stop: 05/18/17 21:59 Last Admin: 03/23/17 09:00 Dose: 100 mls/hr Sodium Chloride (Nacl 0.9%) 1,000 mls @ 75 mls/hr IV .[id number] [facility] Stop: 05/18/17 21:32 Last Admin: 03/22/17 21:07 Dose: 75 mls/hr Potassium Chloride 40 meq/Lidocaine HCl 25 mg/ Sodium Chloride 272.5 mls @ 68 mls/hr IV X1 ONE Stop: 03/23/17 14:22 Last Admin: 03/23/17 11:50 Dose: 68 mls/hr Insulin Aspart (Novolog Insulin Sliding Scale) 0 units SUBQ Q6HR [facility]ERT PRN Reason: Protocol Stop: 05/19/17 00:00 Last Admin: 03/23/17 06:16 Dose: Not Given Lactulose (Cephulac) 30 gm PO BID [facility]UBERT Stop: 05/19/17 16:59 Last Admin: 03/23/17 09:13 Dose: Not Given Magnesium Hydroxide (Milk Of Magnesia) 30 ml GT Q72HR PRN PRN Reason: Constipation Stop: 05/18/17 21:32 Miscellaneous (Vte Chemical Prophylaxis Screen/ Admission) 1 ea PRN PRN PRN Reason: PROTOCOL Stop: 05/19/17 10:29 Miscellaneous (Vancomycin Iv Per Pharmacy) 1 [facility] PRN HUBERT Stop: 05/22/17 11:59 Oxcarbazepine (Trileptal) 300 mg GT BID HUBERT PRN Reason: Protocol Stop: 05/19/17 08:59 Last Admin: 03/23/17 09:16 Dose: 300 mg Oxybutynin Chloride (Ditropan) 5 mg GT TID HUBERT Stop: 05/18/17 21:32 Last Admin: 03/23/17 09:03 Dose: 5 mg Senna (Senna) 8.6 mg GT BID HUBERT Stop: 05/19/17 08:59 Last Admin: 03/23/17 09:02 Dose: 8.6 mg Sodium Phosphate (Fleet Enema) 135 ml RC Q96H PRN PRN Reason: Constipation Stop: 05/19/17 11:22 Sodium Phosphate (Fleet Enema) 135 ml RC PRN PRN PRN Reason: Constipation Stop: 05/19/17 11:25 General: Alert, Other (Confused, non verbal) HEENT: Atraumatic Neck: Supple Cardiovascular: Regular rate Lungs: Clear to auscultation Abdomen: Bowel sounds, Soft Extremities: Other (No edema) Neurological: Other (Non ambulatory) Psych/Mental Status: Other (Confused) - Procedures Procedures: Procedures Procedure Code Date NUBIA SUBQ TISSUE 20 SQ CM/< 83175 06/21/13 INJECT ANTIBIOTIC 99.21 02/09/13 INSERT TEMP BLADDER CATH [id number] 11/07/12 NONEXCIS DEBRID OF WOUND, INFECT, OR BURN 86.28 06/21/13 REPLACE INDWELLING CATH 57.95 11/07/12 Assessment/Plan - Problem List Patient Problems: All Active Problems FEVER WITH ABNORMAL LABS AND WBC (Acute) Decubitus ulcer (Active) L89.90 Fever (Active) R50.9 Urine screening abnormal (Active) - Assessment Assessment: Patient is awake, confused, not responding to verbal commands. Suprapubic catheter is licking, Urine continue been dark, he had fever today. WBC increased. Patient is not going to be transfer to [facility]. - Plan Plan: Vanco is added . Will continue to monitor. Nutritional Asmnt/Malnutr-PDOC - Dietary Evaluation Malnutrition Findings (Please click <Entered> for more info): Nutritional Asmnt/Malnutrition Start: 03/21/17 16: 15 Text: Status: Complete Freq: Document 03/21/17 16:18 GSUN (Rec: 03/21/17 16:25 GSUN [email or web address]) Nutritional Asmnt/Malnutrition Patient General Information Nutritional Screening High Risk Screening Diagnosis Fevere r/o sepsis, possible UTI vs intraabdominal infection, fecal impactio Pertinent Medical Hx/Surgical Hx Severe mental retardation, cerebral palsy, seizure disorder, dysphagia with PEG, femur frature, suprapubic cath placement, stage IV decubitus ulcer Subjective Information 36 year old male from SNF. KUB: severely distended stool-filled colon and rectum. Visited pt with RN at bedside . Pt made eye contact with RD, non-verbal, no significant wasting noted. Obsered tube feeding off at this time. RN stated pt had 1 BM overnight, continues to have fever, abdomen distended but soft. Pt tolerating tube feeding well per RN notes and assessments. Current Diet Order/ Nutrition Support Diabetisource at 80ml/hr x 16hrs/day Pertinent Medications Vitamin C, Dulcolax, Glutose 40%, Glucagen, Novolog, MOM, Senna, Nacl 0.9%, Fleet Enema Pertinent Labs 03/20: A1c 6 03/21: glucose 150H Nutritional Hx/Data Height 1.55 m Height (Calculated Centimeters) 154.9 Current Weight (lbs) 56.699 kg Weight (Calculated Kilograms) 56.7 Weight (Calculated Grams) 81806.0 [place] Body Weight 112 Weight Status Approriate GI Symptoms GI Symptoms Constipation Usual diet at home [facility] SNF: Glucerna at 80ml/hr x 16hrs/day Skin Integrity/Comment: 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 Problem Problem Difficulty swallowing related to Etiology dysphagia severe mental retardation aeb Signs/Symptoms: PEG dependent Intervention/Recommendation Comments 1. Continue with SNF order Diabetisource 80ml/hr x 16hrs/ day, providing 1536kcal and 77g protein, meeting nutritional needs. Expected Outcomes/Goals Expected Outcomes/Goals 1. Pt continue to meet 100% of estimated nutritional needs on tube feeding with tolerance .
[2017-03-24] MEDS: INSULIN ASPART SLIDING SCALE 100 UNITS/ML UNIT SUBQ SCH ×4 (00:05→17:27)
[2017-03-24 07:25] LABS: % BASOPHILS 0.1 % (0.0-2.0); % EOSINOPHILS 4.8 % (0.0-5.0); % MONOCYTES 3.6 % (2.0-10.0); % NEUTROPHILS 71.5 % (40.0-80.0); HEMATOCRIT 35.1 % (39.0-49.0); HEMOGLOBIN 11.8 gm/dL (13.2-17.3); MEAN CELL VOLUME 87.4 fl (80-99); MEAN CORPUSCULAR HEMOGLOBIN 29.4 pg (26.0-30.0); MEAN CORPUSCULAR HGB CONC 33.7 pg (28.0-36.0); MEAN PLATELET VOLUME 9.8 fl; NEUTROPHILE ABSOLUTE 6.7 Th/cmm (1.8-8.0); PLATELET COUNT 259 Th/cmm (150-400); RED BLOOD COUNT 4.02 Mil/cmm (4.30-5.70); RED CELL DISTRIBUTION WIDTH 12.6 % (11.5-20.0)
[2017-03-24 07:37] LABS: WHITE BLOOD COUNT 9.3 Th/cmm (4.8-10.8)
[2017-03-24 07:48] LABS: ALB/GLOB RATIO 0.9 (1.0-1.8); ALKALINE PHOSPHATASE 44 U/L (34-104); ANION GAP 7.6 (7.0-16.0); BILIRUBIN,TOTAL 0.3 mg/dL (0.3-1.0); BUN - UREA NITROGEN 13 mg/dL (7-25); BUN/CREATININE RATIO 32.5; CALCIUM SERUM 8.5 mg/dL (8.6-10.3); CARBON DIOXIDE 26.3 mEq/L (21.0-31.0); CHLORIDE 108 mEq/L (98-107); CREATININE - SERUM 0.4 mg/dL (0.7-1.3); GLUCOSE 122 mg/dL (70-105); SGOT 12 U/L (13-39); SGPT/ALT 9 U/L (7-52); SODIUM SERUM 139 mEq/L (136-145)
[2017-03-24 08:00] LABS: POTASSIUM SERUM 2.9 mEq/L (3.5-5.1)
[2017-03-24] MEDS ORDERED: Potassium Chloride 40 MEQ, Lidocaine 1% 20mL Vial 25 MG in Sodium Chloride 0.9% 250 ML IV ONE (08:45)
[2017-03-24] MEDS: Ascorbic Acid 500 mg/5 mL UDC GT SCH (09:33)
[2017-03-24] MEDS: Lactulose 10 Gm/15 mL 30mL UDC PO SCH ×2 (09:34→17:28)
[2017-03-24] MEDS: Ciprofloxacin 200mg Premix PB 200 MG/100 ML BAG IV SCH ×2 (09:35→22:40)
[2017-03-25] MEDS: INSULIN ASPART SLIDING SCALE 100 UNITS/ML UNIT SUBQ SCH ×4 (00:17→17:30)
[2017-03-25 05:28] LABS: BUN - UREA NITROGEN 14 mg/dL (7-25); CALCIUM SERUM 8.8 mg/dL (8.6-10.3); CARBON DIOXIDE 23.4 mEq/L (21.0-31.0); CHLORIDE 106 mEq/L (98-107); CREATININE - SERUM 0.4 mg/dL (0.7-1.3); GLUCOSE 137 mg/dL (70-105); POTASSIUM SERUM 3.4 mEq/L (3.5-5.1); SODIUM SERUM 136 mEq/L (136-145)
[2017-03-25] MEDS: Ciprofloxacin 200mg Premix PB 200 MG/100 ML BAG IV SCH (09:00)
[2017-03-25] MEDS: KCL 20mEq/100mL Premix 20 MEQ/100 ML PIGGYBACK IV SCH ×2 (09:50→12:15)
[2017-03-25] MEDS: Lactulose 10 Gm/15 mL 30mL UDC PO SCH ×2 (09:55→16:19)
[2017-03-25] MEDS: Ascorbic Acid 500 mg/5 mL UDC GT SCH (09:55)
[2017-03-25] MEDS: Meropenem 1 GM in Sodium Chloride 0.9% 100 ML IV SCH ×2 (10:00→20:54)
[2017-03-26] MEDS: INSULIN ASPART SLIDING SCALE 100 UNITS/ML UNIT SUBQ SCH ×4 (00:15→17:46)
[2017-03-26 05:43] LABS: % BASOPHILS 2.6 % (0.0-2.0); % EOSINOPHILS 6.5 % (0.0-5.0); % LYMPHOCYTES 23.7 % (20.0-50.0); % NEUTROPHILS 62.2 % (40.0-80.0); HEMATOCRIT 35.2 % (39.0-49.0); HEMOGLOBIN 11.8 gm/dL (13.2-17.3); MEAN CELL VOLUME 87.6 fl (80-99); MEAN CORPUSCULAR HEMOGLOBIN 29.3 pg (26.0-30.0); MEAN CORPUSCULAR HGB CONC 33.4 pg (28.0-36.0); MEAN PLATELET VOLUME 10.2 fl; NEUTROPHILE ABSOLUTE 3.8 Th/cmm (1.8-8.0); PLATELET COUNT 263 Th/cmm (150-400); RED BLOOD COUNT 4.02 Mil/cmm (4.30-5.70); RED CELL DISTRIBUTION WIDTH 13.1 % (11.5-20.0)
[2017-03-26 05:49] LABS: WHITE BLOOD COUNT 6.1 Th/cmm (4.8-10.8)
[2017-03-26 05:52] LABS: BUN - UREA NITROGEN 14 mg/dL (7-25); CALCIUM SERUM 8.9 mg/dL (8.6-10.3); CARBON DIOXIDE 24.9 mEq/L (21.0-31.0); CHLORIDE 107 mEq/L (98-107); CREATININE - SERUM 0.4 mg/dL (0.7-1.3); GLUCOSE 117 mg/dL (70-105); MAGNESIUM 2.1 mg/dL (1.9-2.7); POTASSIUM SERUM 3.9 mEq/L (3.5-5.1); SODIUM SERUM 135 mEq/L (136-145)
[2017-03-26] MEDS: Lactulose 10 Gm/15 mL 30mL UDC PO SCH ×2 (08:26→16:39)
[2017-03-26] MEDS: Ascorbic Acid 500 mg/5 mL UDC GT SCH (08:27)
[2017-03-26] MEDS: Meropenem 1 GM in Sodium Chloride 0.9% 100 ML IV SCH ×2 (08:30→20:41)
[2017-03-27] MEDS: INSULIN ASPART SLIDING SCALE 100 UNITS/ML UNIT SUBQ SCH ×3 (00:03→13:19)
[2017-03-27 05:16] LABS: % BASOPHILS 0.5 % (0.0-2.0); % EOSINOPHILS 4.1 % (0.0-5.0); % LYMPHOCYTES 20.3 % (20.0-50.0); % NEUTROPHILS 69.1 % (40.0-80.0); HEMATOCRIT 34.5 % (39.0-49.0); HEMOGLOBIN 11.6 gm/dL (13.2-17.3); MEAN CELL VOLUME 88.2 fl (80-99); MEAN CORPUSCULAR HEMOGLOBIN 29.8 pg (26.0-30.0); MEAN CORPUSCULAR HGB CONC 33.7 pg (28.0-36.0); MEAN PLATELET VOLUME 9.5 fl; NEUTROPHILE ABSOLUTE 4.9 Th/cmm (1.8-8.0); PLATELET COUNT 267 Th/cmm (150-400); RED BLOOD COUNT 3.91 Mil/cmm (4.30-5.70); RED CELL DISTRIBUTION WIDTH 13.3 % (11.5-20.0)
[2017-03-27 05:31] LABS: ANION GAP 6.8 (7.0-16.0); BUN - UREA NITROGEN 15 mg/dL (7-25); BUN/CREATININE RATIO 37.5; CALCIUM SERUM 8.9 mg/dL (8.6-10.3); CHLORIDE 104 mEq/L (98-107); CREATININE - SERUM 0.4 mg/dL (0.7-1.3); GLUCOSE 129 mg/dL (70-105); POTASSIUM SERUM 3.8 mEq/L (3.5-5.1); SODIUM SERUM 134 mEq/L (136-145)
[2017-03-27] MEDS: Lactulose 10 Gm/15 mL 30mL UDC PO SCH ×2 (10:58→17:58)
[2017-03-27] MEDS: Ascorbic Acid 500 mg/5 mL UDC GT SCH (10:59)
[2017-03-27] MEDS: Meropenem 1 GM in Sodium Chloride 0.9% 100 ML IV SCH ×2 (11:01→20:42)
[2017-03-28] MEDS: INSULIN ASPART SLIDING SCALE 100 UNITS/ML UNIT SUBQ SCH ×3 (00:03→12:15)
[2017-03-28 04:59] LABS: % LYMPHOCYTES 20.1 % (20.0-50.0); % MONOCYTES 2.1 % (2.0-10.0); % NEUTROPHILS 74.8 % (40.0-80.0); HEMATOCRIT 36.6 % (39.0-49.0); HEMOGLOBIN 12.1 gm/dL (13.2-17.3); MEAN CELL VOLUME 87.5 fl (80-99); MEAN CORPUSCULAR HEMOGLOBIN 28.8 pg (26.0-30.0); NEUTROPHILE ABSOLUTE 6.5 Th/cmm (1.8-8.0); PLATELET COUNT 280 Th/cmm (150-400); RED BLOOD COUNT 4.18 Mil/cmm (4.30-5.70); RED CELL DISTRIBUTION WIDTH 13.1 % (11.5-20.0)
[2017-03-28 05:00] LABS: WHITE BLOOD COUNT 8.7 Th/cmm (4.8-10.8)
[2017-03-28 05:48] LABS: ANION GAP 6.5 (7.0-16.0); BUN - UREA NITROGEN 15 mg/dL (7-25); BUN/CREATININE RATIO 37.5; CALCIUM SERUM 9.1 mg/dL (8.6-10.3); CARBON DIOXIDE 25.4 mEq/L (21.0-31.0); CHLORIDE 103 mEq/L (98-107); CREATININE - SERUM 0.4 mg/dL (0.7-1.3); GLUCOSE 144 mg/dL (70-105); POTASSIUM SERUM 3.9 mEq/L (3.5-5.1); SODIUM SERUM 131 mEq/L (136-145)
[2017-03-28] MEDS: Meropenem 1 GM in Sodium Chloride 0.9% 100 ML IV SCH ×2 (10:00→20:59)
[2017-03-28] MEDS: Ascorbic Acid 500 mg/5 mL UDC GT SCH (11:13)
[2017-03-28] MEDS: Lactulose 10 Gm/15 mL 30mL UDC PO SCH ×2 (11:13→17:17)
[2017-03-29] MEDS: INSULIN ASPART SLIDING SCALE 100 UNITS/ML UNIT SUBQ SCH ×4 (00:07→18:30)
[2017-03-29 05:37] LABS: BUN - UREA NITROGEN 12 mg/dL (7-25); CALCIUM SERUM 9.4 mg/dL (8.6-10.3); CHLORIDE 102 mEq/L (98-107); CREATININE - SERUM 0.4 mg/dL (0.7-1.3); GLUCOSE 107 mg/dL (70-105); MAGNESIUM 2.2 mg/dL (1.9-2.7); SODIUM SERUM 132 mEq/L (136-145)
[2017-03-29] MEDS: Lactulose 10 Gm/15 mL 30mL UDC PO SCH ×2 (09:31→17:19)
[2017-03-29] MEDS: Ascorbic Acid 500 mg/5 mL UDC GT SCH (09:32)
[2017-03-29] MEDS: Meropenem 1 GM in Sodium Chloride 0.9% 100 ML IV SCH ×2 (09:37→20:32)
[2017-03-30] MEDS: INSULIN ASPART SLIDING SCALE 100 UNITS/ML UNIT SUBQ SCH ×3 (00:04→11:35)
[2017-03-30] MEDS: Lactulose 10 Gm/15 mL 30mL UDC PO SCH ×2 (09:07→16:30)
[2017-03-30] MEDS: Ascorbic Acid 500 mg/5 mL UDC GT SCH (09:07)
[2017-03-30] MEDS: Meropenem 1 GM in Sodium Chloride 0.9% 100 ML IV SCH ×2 (09:21→22:27)
[2017-03-31] MEDS: Lactulose 10 Gm/15 mL 30mL UDC PO SCH ×2 (09:02→17:11)
[2017-03-31] MEDS: Ascorbic Acid 500 mg/5 mL UDC GT SCH (09:03)
[2017-03-31] MEDS: INSULIN ASPART SLIDING SCALE 100 UNITS/ML UNIT SUBQ SCH ×3 (09:06→17:11)
[2017-03-31] MEDS: Meropenem 1 GM in Sodium Chloride 0.9% 100 ML IV SCH ×2 (09:09→21:03)
[2017-03-31 22:19] LABS: URINE BILIRUBIN NEGATIVE (NEGATIVE); URINE BLOOD NEGATIVE (NEGATIVE); URINE COLOR YELLOW; URINE GLUCOSE (UA) NEGATIVE (NEGATIVE); URINE KETONE 15 mg/dL (NEGATIVE); URINE PROTEIN 100 mg/dL (NEGATIVE)
[2017-03-31 22:20] LABS: URINE AMORPHOUS SEDIMENT MODERATE URATES (NONE SEEN); URINE BACTERIA MODERATE /hpf (NONE SEEN); URINE EPITHELIAL CELLS FEW /lpf (FEW); URINE HYALINE CAST 0-2 /lpf (0-2); URINE RBC 0-2 /hpf (0-5)
[2017-03-31 22:22] LABS: URINE WBC >100 /hpf (0-5)
[2017-04-01] MEDS: INSULIN ASPART SLIDING SCALE 100 UNITS/ML UNIT SUBQ SCH ×4 (00:06→17:50)
[2017-04-01] MEDS: Lactulose 10 Gm/15 mL 30mL UDC PO SCH ×2 (09:20→16:51)
[2017-04-01] MEDS: Meropenem 1 GM in Sodium Chloride 0.9% 100 ML IV SCH ×2 (09:21→20:50)
[2017-04-01] MEDS: Ascorbic Acid 500 mg/5 mL UDC GT SCH (09:21)
--- NOTE | 2017-04-01 11:17 | Consultation ---
Consult Note - Consult Note Service Date: 04/01/17 Referring Physician: Harry Hull Consult Note: PHYSICIAN Consultation Note: Date of Admission: 03/19/17 Purpose of Consultation: Chief Complaint: Patient PATEL CAPONE was admitted to location Medical/Surgical Unit I with FEVER R/O SEPSIS. History of Present Illness: 36 y male admitted for fever and chills. On initial evaluation, his temperature was 100.5 degree F and WBC count was 10,200. Sepsis workup was performed and urine culture grew Providencia stuartii and Proteus mirabilis. Patient was started on vanco and cipro. It was changed to meropenem and ID consult was called for antibiotic management. Renal ultrasound showed mild dilataion of right renal collecting system. Past Medical History: Cerebral palsy, mental retardation,seizure disorder, PEG, Suprapubic catheter. Diagnoses SEPSIS, UNSPECIFIED ORGANISM (03/19/17) HYPO-OSMOLALITY AND HYPONATREMIA (03/19/17) SEVERE INTELLECTUAL DISABILITIES (03/19/17) EPILEPSY, UNSP, NOT INTRACTABLE, WITHOUT STATUS EPILEPTICUS (03/19/17) CEREBRAL PALSY, UNSPECIFIED (03/19/17) FECAL IMPACTION (03/19/17) CONSTIPATION, UNSPECIFIED (03/19/17) URINARY TRACT INFECTION, SITE NOT SPECIFIED (03/19/17) DYSPHAGIA, UNSPECIFIED (03/19/17) FEVER, UNSPECIFIED (03/19/17) GASTROSTOMY STATUS (03/19/17) Allergies Allergy/AdvReac Type Severity Reaction Status Date / Time cephalexin monohydrate Allergy Verified 05/14/16 00:16 [From Keflex] Sulfa (Sulfonamide Allergy Verified 05/14/16 00:16 Antibiotics) Vital Signs Temp 99.3 F 04/01/17 07:57 Pulse 77 04/01/17 07:57 Resp 20 04/01/17 08:00 BP 108/58 04/01/17 07:57 Pulse Ox 97 04/01/17 07:57 Intake & Output 03/31/17 04/01/17 04/01/17 18:59 06:59 18:59 Intake Total 1230 700 Output Total 600 800 Balance 630 -100 Weight (lbs) 54.431 kg 56.155 kg Intake: Intake, IV Amount 100 100 Meropenem 1 gm In Sodium 100 100 Chloride 0.9% 100 ml @ 100 mls/hr IV Q12HR [facility] Rx#:[id number] Tube Feeding 880 480 Other 250 120 Output: Urine 600 400 Other 400 Other: # Bowel Movements 0 0 Stool Characteristics Soft Formed Liquid Brown Laboratory Results - last 24 hr 03/31/17 03/31/17 03/31/17 12:08 16:12 17:28 POC Glucose 130 H 106 H Urine Source [place] Urine Color YELLOW Urine Clarity CLOUDY Urine pH 7.0 Ur Specific [place] 1.015 Urine Protein 100 H Urine Glucose (UA) NEGATIVE Urine Ketones 15 H Urine Blood NEGATIVE Urine Nitrate NEGATIVE Urine Bilirubin NEGATIVE Urine Urobilinogen 4.0 H Ur Leukocyte Esterase MODERATE H Urine RBC 0-2 H Urine WBC >100 H Ur Epithelial Cells FEW Amorphous Sediment MODERATE URATES Urine Bacteria MODERATE Hyaline Casts 0-2 H 03/31/17 04/01/17 23:39 05:59 POC Glucose 113 H 113 H Urine Source Urine Color Urine Clarity Urine pH Ur Specific [place] Urine Protein Urine Glucose (UA) Urine Ketones Urine Blood Urine Nitrate Urine Bilirubin Urine Urobilinogen Ur Leukocyte Esterase Urine RBC Urine WBC Ur Epithelial Cells Amorphous Sediment Urine Bacteria Hyaline Casts Home Medication Medication Instructions Recorded Type Acetaminophen [Tylenol] 650 mg GT Q4HR PRN 05/14/16 History Albuterol Sulfate 2.5 mg IH Q4H PRN 05/14/16 History Aspirin [Aspirin Chewable] 81 mg GT DAILY 05/14/16 History Bisacodyl 10 mg RC Q96H PRN 05/14/16 History Cran/Vitc/Mannose/Fos/Bromeln 30 ml GT BID 05/14/16 History [Uti-Stat Liquid] Dextrose [Glucose Gel] 40 % GT PRN PRN 05/14/16 History Fleet Enema 135 ml RC Q96H PRN 05/14/16 History GLUCAGON HCl [Glucagen] 1 mg IM PRN PRN 05/14/16 History Insulin Lispro [Humalog Kwikpen See Protocol SQ BID 05/14/16 History U-100] Magnesium Hydroxide [Milk of 30 ml GT Q72HR PRN 05/14/16 History Magnesia] Methenamine Hippurate 1 gm GT DAILY 05/14/16 History Multivitamin with Minerals 1 tab GT DAILY 05/14/16 History [Multivitamins with Minerals] Oxcarbazepine [Trileptal] 300 mg GT BID 05/14/16 History Oxybutynin Chloride [Ditropan*] 5 mg GT TID 05/14/16 History Sennosides A and B [Senna] 8.6 mg GT BID 05/14/16 History Vit C/Ascorbate Ca/Ascorb Sod 500 mg GT DAILY 05/14/16 History [Vitamin C 500 mg/15 ml Liquid] Current Medications Generic Name Dose Route Start Last Admin Trade Name Freq PRN Reason Stop Dose Admin Acetaminophen 650 mg 03/19/17 21:33 03/27/17 01:09 Tylenol 650mg/20.3ml Suspension GT 05/18/17 21:32 650 mg Q4HR PRN Administration Pain Or Fever >99.9 Albuterol Sulfate 2.5 mg 03/19/17 21:33 03/24/17 15:38 Albuterol 2.5mg/3ml Neb Ud HHN 2.5 mg Q4H PRN Administration Shortness of Breath Ascorbic Acid 500 mg 03/20/17 09:00 04/01/17 09:21 Vitamin C GT 05/19/17 08:59 500 mg DAILY HUBERT Administration Bisacodyl 10 mg 03/19/17 21:33 Dulcolax 10 Mg Supp RC 05/18/17 21:32 Q96H PRN Constipation Dextrose 15 gm 03/20/17 11:23 Glutose 40% PO 05/19/17 11:22 PRN PRN hypoglycemia Glucagon 1 mg 03/20/17 11:23 Glucagen IM 05/19/17 11:22 PRN PRN hypoglycemia Heparin Sodium (Porcine) 5,000 units 03/20/17 21:00 04/01/17 09:21 Heparin SUBQ 05/19/17 20:59 5,000 units Q12HR HUBERT Administration Meropenem 1 gm/ Sodium 100 mls @ 100 mls/hr 03/25/17 10:00 04/01/17 09:21 Chloride IV 05/24/17 09:59 100 mls/hr Q12HR HUBERT Administration Insulin Aspart 0 units 03/20/17 00:00 04/01/17 06:00 Novolog Insulin Sliding Scale SUBQ 05/19/17 00:00 Not Given Q6HR HUBERT Protocol Lactulose 30 gm 03/20/17 17:00 04/01/17 09:20 Cephulac PO 05/19/17 16:59 30 gm BID HUBERT Administration Magnesium Hydroxide 30 ml 03/19/17 21:33 Milk Of Magnesia GT 05/18/17 21:32 Q72HR PRN Constipation Miscellaneous 1 ea 03/20/17 10:30 Vte Chemical Prophylaxis Screen/ Admission 05/19/17 10:29 PRN PRN PROTOCOL Oxcarbazepine 300 mg 03/20/17 09:00 04/01/17 09:21 Trileptal GT 05/19/17 08:59 300 mg BID HUBERT Administration Protocol Oxybutynin Chloride 5 mg 03/19/17 21:33 04/01/17 09:21 Ditropan GT 05/18/17 21:32 5 mg TID HUBERT Administration Senna 8.6 mg 03/20/17 09:00 04/01/17 09:21 Senna GT 05/19/17 08:59 8.6 mg BID HUBERT Administration Sodium Phosphate 135 ml 03/20/17 11:23 Fleet Enema RC 05/19/17 11:22 Q96H PRN Constipation Review of Systems: A 12 point ROS was reviewed with the pertinent positive and negatives noted in the HPI. Social History Smoking Status Unknown if ever smoked Drug Use No Alcohol Use No Family Medical History Unknown Physical Exam: General: Comfortable. No Acute Distress HEENT: EOMI Bilaterally, PERRLA Bilaterally, Head is normocephalic, atraumatic on inspection. Cardio: +S1/S2 Auscultated, RRR, no murmurs/rubs/gallops noted Respiratory: Clear to Auscultate Bilaterally Abdominal: Soft, Nondistended, Nontender to palpation x 4 quadrants. Suprapubic catheter. Extremities: No Edema noted in the lower extremities Neurological: Alert and Oriented x3, Cranial Nerves II-XII intact bilaterally, No Focal Deficits noted. Assessment/Plan: 1. UTI. 2/2 infected suprapubic Ambriz. 2. fecal impaction. 3. Seizure disorder. 4. Mental retardation. 5. Suprapubic catheter. 6. Dysphagia, and G tube placement. 7. Malfunctioning Suprapubic Catheter. Recommendations: Continue meropenem for 14 days after changing ambriz catheter. It can be changed to invanz 1 G iv daily for outpatient after changing suprapubic Ambriz catheter. Suprapubic catheter needs to be changed before discharge. Dr Hubbard , Surgery consult, for changing Ambriz catheter. Thank you, Dr Hull for involving me in taking care of this patient. Signed, Damion Fu M.D. [id number]
--- NOTE | 2017-04-01 15:23 | Consultation ---
Consult Note - Consult Note Service Date: 04/01/17 Consult Note: PHYSICIAN Consultation Note: Date of Admission: 03/19/17 Purpose of Consultation: Chief Complaint: History of Present Illness: Patient PATEL CAPOEN was admitted to location Medical[facility] Unit I with FEVER R/O SEPSIS. Past Medical History: Diagnoses SEPSIS, UNSPECIFIED ORGANISM (03/19/17) HYPO-OSMOLALITY AND HYPONATREMIA (03/19/17) SEVERE INTELLECTUAL DISABILITIES (03/19/17) EPILEPSY, UNSP, NOT INTRACTABLE, WITHOUT STATUS EPILEPTICUS (03/19/17) CEREBRAL PALSY, UNSPECIFIED (03/19/17) FECAL IMPACTION (03/19/17) CONSTIPATION, UNSPECIFIED (03/19/17) URINARY TRACT INFECTION, SITE NOT SPECIFIED (03/19/17) DYSPHAGIA, UNSPECIFIED (03/19/17) FEVER, UNSPECIFIED (03/19/17) GASTROSTOMY STATUS (03/19/17) Allergies Allergy/AdvReac Type Severity Reaction Status Date / Time cephalexin monohydrate Allergy Verified 05/14/16 00:16 [From Keflex] Sulfa (Sulfonamide Allergy Verified 05/14/16 00:16 Antibiotics) Vital Signs Temp 97.5 F 04/01/17 12:00 Pulse 74 04/01/17 12:00 Resp 20 04/01/17 12:00 BP 102/6 04/01/17 12:00 Pulse Ox 97 04/01/17 12:00 Intake & Output 03/31/17 04/01/17 04/01/17 18:59 06:59 18:59 Intake Total 1230 700 Output Total 600 800 Balance 630 -100 Weight (lbs) 54.431 kg 56.155 kg Intake: Intake, IV Amount 100 100 Meropenem 1 gm In Sodium 100 100 Chloride 0.9% 100 ml @ 100 mls/hr IV Q12HR [facility] Rx#:[id number] Tube Feeding 880 480 Other 250 120 Output: Urine 600 400 Other 400 Other: # Bowel Movements 0 0 Stool Characteristics Soft Formed Liquid Brown Laboratory Results - last 24 hr 03/31/17 03/31/17 03/31/17 16:12 17:28 23:39 POC Glucose 106 H 113 H Urine Source [place] Urine Color YELLOW Urine Clarity CLOUDY Urine pH 7.0 Ur Specific [place] 1.015 Urine Protein 100 H Urine Glucose (UA) NEGATIVE Urine Ketones 15 H Urine Blood NEGATIVE Urine Nitrate NEGATIVE Urine Bilirubin NEGATIVE Urine Urobilinogen 4.0 H Ur Leukocyte Esterase MODERATE H Urine RBC 0-2 H Urine WBC >100 H Ur Epithelial Cells FEW Amorphous Sediment MODERATE URATES Urine Bacteria MODERATE Hyaline Casts 0-2 H 04/01/17 04/01/17 05:59 11:49 POC Glucose 113 H 122 H Urine Source Urine Color Urine Clarity Urine pH Ur Specific [place] Urine Protein Urine Glucose (UA) Urine Ketones Urine Blood Urine Nitrate Urine Bilirubin Urine Urobilinogen Ur Leukocyte Esterase Urine RBC Urine WBC Ur Epithelial Cells Amorphous Sediment Urine Bacteria Hyaline Casts Home Medication Medication Instructions Recorded Type Acetaminophen [Tylenol] 650 mg GT Q4HR PRN 05/14/16 History Albuterol Sulfate 2.5 mg IH Q4H PRN 05/14/16 History Aspirin [Aspirin Chewable] 81 mg GT DAILY 05/14/16 History Bisacodyl 10 mg RC Q96H PRN 05/14/16 History Cran/Vitc/Mannose/Fos/Bromeln 30 ml GT BID 05/14/16 History [Uti-Stat Liquid] Dextrose [Glucose Gel] 40 % GT PRN PRN 05/14/16 History Fleet Enema 135 ml RC Q96H PRN 05/14/16 History GLUCAGON HCl [Glucagen] 1 mg IM PRN PRN 05/14/16 History Insulin Lispro [Humalog Kwikpen See Protocol SQ BID 05/14/16 History U-100] Magnesium Hydroxide [Milk of 30 ml GT Q72HR PRN 05/14/16 History Magnesia] Methenamine Hippurate 1 gm GT DAILY 05/14/16 History Multivitamin with Minerals 1 tab GT DAILY 05/14/16 History [Multivitamins with Minerals] Oxcarbazepine [Trileptal] 300 mg GT BID 05/14/16 History Oxybutynin Chloride [Ditropan*] 5 mg GT TID 05/14/16 History Sennosides A and B [Senna] 8.6 mg GT BID 05/14/16 History Vit C/Ascorbate Ca/Ascorb Sod 500 mg GT DAILY 05/14/16 History [Vitamin C 500 mg/15 ml Liquid] Current Medications Generic Name Dose Route Start Last Admin Trade Name Freq PRN Reason Stop Dose Admin Acetaminophen 650 mg 03/19/17 21:33 03/27/17 01:09 Tylenol 650mg/20.3ml Suspension GT 05/18/17 21:32 650 mg Q4HR PRN Administration Pain Or Fever >99.9 Albuterol Sulfate 2.5 mg 03/19/17 21:33 03/24/17 15:38 Albuterol 2.5mg/3ml Neb Ud HHN 2.5 mg Q4H PRN Administration Shortness of Breath Ascorbic Acid 500 mg 03/20/17 09:00 04/01/17 09:21 Vitamin C GT 05/19/17 08:59 500 mg DAILY [facility] Administration Bisacodyl 10 mg 03/19/17 21:33 Dulcolax 10 Mg Supp RC 05/18/17 21:32 Q96H PRN Constipation Dextrose 15 gm 03/20/17 11:23 Glutose 40% PO 05/19/17 11:22 PRN PRN hypoglycemia Glucagon 1 mg 03/20/17 11:23 Glucagen IM 05/19/17 11:22 PRN PRN hypoglycemia Heparin Sodium (Porcine) 5,000 units 03/20/17 21:00 04/01/17 09:21 Heparin SUBQ 05/19/17 20:59 5,000 units Q12HR [facility] Administration Meropenem 1 gm/ Sodium 100 mls @ 100 mls/hr 03/25/17 10:00 04/01/17 09:21 Chloride IV 05/24/17 09:59 100 mls/hr Q12HR [facility] Administration Insulin Aspart 0 units 03/20/17 00:00 04/01/17 13:02 Novolog Insulin Sliding Scale SUBQ 05/19/17 00:00 Not Given Q6HR [facility] Protocol Lactulose 30 gm 03/20/17 17:00 04/01/17 09:20 Cephulac PO 05/19/17 16:59 30 gm BID [facility] Administration Magnesium Hydroxide 30 ml 03/19/17 21:33 Milk Of Magnesia GT 05/18/17 21:32 Q72HR PRN Constipation Miscellaneous 1 ea 03/20/17 10:30 Vte Chemical Prophylaxis Screen/ Admission 05/19/17 10:29 PRN PRN PROTOCOL Oxcarbazepine 300 mg 03/20/17 09:00 04/01/17 09:21 Trileptal GT 05/19/17 08:59 300 mg BID [facility] Administration Protocol Oxybutynin Chloride 5 mg 03/19/17 21:33 04/01/17 13:03 Ditropan GT 05/18/17 21:32 5 mg TID [facility] Administration Senna 8.6 mg 03/20/17 09:00 04/01/17 09:21 Senna GT 05/19/17 08:59 8.6 mg BID [facility] Administration Sodium Phosphate 135 ml 03/20/17 11:23 Fleet Enema RC 05/19/17 11:22 Q96H PRN Constipation Review of Systems: A 12 point ROS was reviewed with the pertinent positive and negatives noted in the HPI. Social History Smoking Status Unknown if ever smoked Drug Use No Alcohol Use No Family Medical History Family Medical History Start: 03/19/17 20: 46 Freq: ONCE Status: Active Document 03/19/17 20:55 FUNMIMAXINE (Rec: 03/20/17 00:15 FUNMIMAXINE FELICIA-WOW -[email or web address]) Family Medical History Mother History Unknown Yes Physical Exam: General: Alert and Oriented x3, No Acute Distress HEENT: EOMI Bilaterally, PERRLA Bilaterally, Head is normocephalic, atraumatic on inspection. Cardio: +S1/S2 Auscultated, RRR, no murmurs/rubs/gallops noted Respiratory: Clear to Auscultate Bilaterally Abdominal: suprapubic catheter into the bladder apparently leaking. Urine C and S awaited. Genital/Urinary: Extremities: No Edema noted in the lower extremities Neurological: Cranial Nerves II-XII intact bilaterally, Gait Steady, No Focal Deficits noted. Assessment/Plan: leaking suprapubic bladder catheter. Called brother via phone, can not leave message, voicemail not set up. Need info on how long catheter has been in the bladder, previous replacements, etc. Need a catheter with a flange (similar to G tube) that can be tightened against the skin to prevent leak Haydee Marcial Plaridel Cerna [id number]
[2017-04-02] MEDS: INSULIN ASPART SLIDING SCALE 100 UNITS/ML UNIT SUBQ SCH ×4 (00:44→17:06)
[2017-04-02 05:15] LABS: INR 0.92 (0.5-1.4); PROTHROMBIN TIME (TEST) 9.6 SECONDS (9.5-11.5)
[2017-04-02 05:16] LABS: % BASOPHILS 0.2 % (0.0-2.0); % EOSINOPHILS 3.8 % (0.0-5.0); % MONOCYTES 8.5 % (2.0-10.0); % NEUTROPHILS 65.5 % (40.0-80.0); HEMATOCRIT 37.1 % (39.0-49.0); HEMOGLOBIN 12.4 gm/dL (13.2-17.3); MEAN CELL VOLUME 87.8 fl (80-99); MEAN CORPUSCULAR HEMOGLOBIN 29.3 pg (26.0-30.0); MEAN CORPUSCULAR HGB CONC 33.3 pg (28.0-36.0); MEAN PLATELET VOLUME 10.1 fl; NEUTROPHILE ABSOLUTE 4.1 Th/cmm (1.8-8.0); PLATELET COUNT 253 Th/cmm (150-400); RED BLOOD COUNT 4.22 Mil/cmm (4.30-5.70); RED CELL DISTRIBUTION WIDTH 13.5 % (11.5-20.0)
[2017-04-02 05:28] LABS: ANION GAP 7.2 (7.0-16.0); BUN - UREA NITROGEN 15 mg/dL (7-25); BUN/CREATININE RATIO 37.5; CALCIUM SERUM 9.3 mg/dL (8.6-10.3); CARBON DIOXIDE 26.9 mEq/L (21.0-31.0); CHLORIDE 100 mEq/L (98-107); CREATININE - SERUM 0.4 mg/dL (0.7-1.3); GLUCOSE 115 mg/dL (70-105); MAGNESIUM 2.2 mg/dL (1.9-2.7); POTASSIUM SERUM 4.1 mEq/L (3.5-5.1); SODIUM SERUM 130 mEq/L (136-145)
[2017-04-02 05:30] LABS: WHITE BLOOD COUNT 6.1 Th/cmm (4.8-10.8)
--- NOTE | 2017-04-02 08:58 | Operative Report ---
Operative Report - Surgery Date of Surgery:: 04/02/17 Procedure:: replacement of Li catheter Indication for procedure:: leaking Li catheter from cystostomy site Procedure consent:: replacement with PEG tube with flange Anesthesia:: none Preoperative diagnosis:: leaking Li catheter Postoperative diagnosis:: same Description of Procedure:: The exit site of the Li catheter in the suprapubic area was prepped with Betadine and draped. The Li balloon was decompressed and the catheter removed A PEG tube [place] 24 was inserted, the balloon was filled with 15 cc of NSS The flange was snugged against the skin. The tube was connected to catheter drainage
[2017-04-02] MEDS: Meropenem 1 GM in Sodium Chloride 0.9% 100 ML IV SCH ×2 (09:11→21:43)
[2017-04-02] MEDS: Ascorbic Acid 500 mg/5 mL UDC GT SCH (09:23)
[2017-04-02] MEDS: Lactulose 10 Gm/15 mL 30mL UDC PO SCH ×2 (09:24→16:49)
--- NOTE | 2017-04-02 11:56 | Infectious Disease Prog Note ---
Infectious Disease Subjective - Review of Systems Service Date: 04/02/17 Events since last encounter: Ambriz catheter was changed. No complications. No fever. Infectious Disease Objective - Results Result Diagrams: 04/02/17 04:35 04/02/17 04:35 Recent Labs: Laboratory Last Values WBC 6.1 Th/cmm (4.8-10.8) D 04/02/17 04:35 RBC 4.22 Mil/cmm (4.30-5.70) L 04/02/17 04:35 Hgb 12.4 gm/dL (13.2-17.3) L 04/02/17 04:35 Hct 37.1 % (39.0-49.0) L 04/02/17 04:35 MCV 87.8 fl (80-99) 04/02/17 04:35 MCH 29.3 pg (26.0-30.0) 04/02/17 04:35 MCHC Differential 33.3 pg (28.0-36.0) 04/02/17 04:35 RDW 13.5 % (11.5-20.0) 04/02/17 04:35 Plt Count 253 Th/cmm (150-400) 04/02/17 04:35 MPV 10.1 fl 04/02/17 04:35 Neutrophils % 65.5 % (40.0-80.0) 04/02/17 04:35 Band Neutrophils % 7 % (0-10) 03/23/17 06:43 Lymphocytes % 22.0 % (20.0-50.0) 04/02/17 04:35 Monocytes % 8.5 % (2.0-10.0) 04/02/17 04:35 Eosinophils % 3.8 % (0.0-5.0) 04/02/17 04:35 Basophils % 0.2 % (0.0-2.0) 04/02/17 04:35 Neutrophils (Manual) 79 % (40-80) 03/23/17 06:43 Lymphocytes 10 % (20-50) L 03/23/17 06:43 Monocytes 4 % (2-10) 03/23/17 06:43 Platelet Estimate ADEQUATE (NORMAL) 03/23/17 06:43 PT 9.6 SECONDS (9.5-11.5) 04/02/17 04:35 INR 0.92 (0.5-1.4) 04/02/17 04:35 PTT (Actin FS) 25.6 SECONDS (26.0-38.0) L 04/02/17 04:35 Sodium 130 mEq/L (136-145) L 04/02/17 04:35 Potassium 4.1 mEq/L (3.5-5.1) 04/02/17 04:35 Chloride 100 mEq/L (98-107) 04/02/17 04:35 Carbon Dioxide 26.9 mEq/L (21.0-31.0) 04/02/17 04:35 Anion Gap 7.2 (7.0-16.0) 04/02/17 04:35 BUN 15 mg/dL (7-25) 04/02/17 04:35 Creatinine 0.4 mg/dL (0.7-1.3) L 04/02/17 04:35 Est GFR ( Amer) > 60.0 ml/min (>90) 04/02/17 04:35 Est GFR (Non-Af Amer) > 60.0 ml/min 04/02/17 04:35 BUN/Creatinine Ratio 37.5 04/02/17 04:35 Glucose 115 mg/dL (70-105) H 04/02/17 04:35 POC Glucose 109 MG/DL (70 - 105) H 04/02/17 05:29 Hemoglobin A1c % 6.0 % (4.0-6.0) 03/20/17 07:35 Whole Bld Lactic Acid 0.53 mmol/L (0.60-1.99) L 03/20/17 07:35 Calcium 9.3 mg/dL (8.6-10.3) 04/02/17 04:35 Magnesium 2.2 mg/dL (1.9-2.7) 04/02/17 04:35 Total Bilirubin 0.3 mg/dL (0.3-1.0) 03/24/17 06:00 AST 12 U/L (13-39) L 03/24/17 06:00 ALT 9 U/L (7-52) 03/24/17 06:00 Alkaline Phosphatase 44 U/L (34-104) 03/24/17 06:00 Total Protein 6.7 gm/dL (6.0-8.3) 03/24/17 06:00 Albumin 3.2 gm/dL (4.2-5.5) L 03/24/17 06:00 Globulin 3.5 gm/dL 03/24/17 06:00 Albumin/Globulin Ratio 0.9 (1.0-1.8) L 03/24/17 06:00 Urine Source [place] 03/31/17 17:28 Urine Color YELLOW 03/31/17 17:28 Urine Clarity CLOUDY (CLEAR) 03/31/17 17:28 Urine pH 7.0 03/31/17 17:28 Ur Specific [place] 1.015 (1.005-1.030) 03/31/17 17:28 Urine Protein 100 mg/dL (NEGATIVE) H 03/31/17 17:28 Urine Glucose (UA) NEGATIVE mg/dL (NEGATIVE) 03/31/17 17:28 Urine Ketones 15 mg/dL (NEGATIVE) H 03/31/17 17:28 Urine Blood NEGATIVE (NEGATIVE) 03/31/17 17:28 Urine Nitrate NEGATIVE (NEGATIVE) 03/31/17 17:28 Urine Bilirubin NEGATIVE (NEGATIVE) 03/31/17 17:28 Urine Urobilinogen 4.0 E.U./dL (0.2 - 1.0) H 03/31/17 17:28 Ur Leukocyte Esterase MODERATE (NEGATIVE) H 03/31/17 17:28 Urine RBC 0-2 /hpf (0-5) H 03/31/17 17:28 Urine WBC >100 /hpf (0-5) H 03/31/17 17:28 Ur Epithelial Cells FEW /lpf (FEW) 03/31/17 17:28 Triple Phos Crystals MODERATE /hpf (FEW) 03/20/17 18:50 Amorphous Sediment MODERATE URATES (NONE SEEN) 03/31/17 17:28 Urine Bacteria MODERATE /hpf (NONE SEEN) 03/31/17 17:28 Hyaline Casts 0-2 /lpf (0-2) H 03/31/17 17:28 Vancomycin Trough 18.2 ug/mL (10-20) 03/25/17 05:00 - Physical Exam Vitals and I&O: Vital Signs Temp 97.1 F 04/02/17 08:00 Pulse 60 04/02/17 08:00 Resp 18 04/02/17 08:00 BP 108/64 04/02/17 08:00 Pulse Ox 98 04/02/17 08:00 Intake & Output 04/01/17 04/02/17 04/02/17 18:59 06:59 18:59 Intake Total 1100 420 100 Output Total 0 450 Balance 1100 -30 100 Weight (lbs) 56.132 kg 56.245 kg Intake: Intake, IV Amount 100 100 100 Meropenem 1 gm In Sodium 100 100 100 Chloride 0.9% 100 ml @ 100 mls/hr IV Q12HR [facility] Rx#:[id number] Tube Feeding 800 320 Other 200 Output: Urine 450 Stool 0 Other: # Voids 700 Active Medications: Current Medications Acetaminophen (Tylenol 650mg/20.3ml Suspension) 650 mg GT Q4HR PRN PRN Reason: Pain Or Fever >99.9 Stop: 05/18/17 21:32 Last Admin: 03/27/17 01:09 Dose: 650 mg Albuterol Sulfate (Albuterol 2.5mg/3ml Neb Ud) 2.5 mg HHN Q4H PRN PRN Reason: Shortness of Breath Last Admin: 03/24/17 15:38 Dose: 2.5 mg Ascorbic Acid (Vitamin C) 500 mg GT DAILY [facility] Stop: 05/19/17 08:59 Last Admin: 04/02/17 09:23 Dose: Not Given Bisacodyl (Dulcolax 10 Mg Supp) 10 mg RC Q96H PRN PRN Reason: Constipation Stop: 05/18/17 21:32 Dextrose (Glutose 40%) 15 gm PO PRN PRN PRN Reason: hypoglycemia Stop: 05/19/17 11:22 Glucagon (Glucagen) 1 mg IM PRN PRN PRN Reason: hypoglycemia Stop: 05/19/17 11:22 Heparin Sodium (Porcine) (Heparin) 5,000 units SUBQ Q12HR [facility] Stop: 05/19/17 20:59 Last Admin: 04/02/17 09:24 Dose: Not Given Meropenem 1 gm/ Sodium (Chloride) 100 mls @ 100 mls/hr IV Q12HR [facility] Stop: 05/24/17 09:59 Last Infusion: 04/02/17 10:15 Dose: Infused Insulin Aspart (Novolog Insulin Sliding Scale) 0 units SUBQ Q6HR [facility] PRN Reason: Protocol Stop: 05/19/17 00:00 Last Admin: 04/02/17 05:43 Dose: Not Given Lactulose (Cephulac) 30 gm PO BID [facility] Stop: 05/19/17 16:59 Last Admin: 04/02/17 09:24 Dose: Not Given Magnesium Hydroxide (Milk Of Magnesia) 30 ml GT Q72HR PRN PRN Reason: Constipation Stop: 05/18/17 21:32 Miscellaneous (Vte Chemical Prophylaxis Screen/ Admission) 1 ea MC PRN PRN PRN Reason: PROTOCOL Stop: 05/19/17 10:29 Oxcarbazepine (Trileptal) 300 mg GT BID [facility] PRN Reason: Protocol Stop: 05/19/17 08:59 Last Admin: 04/02/17 11:10 Dose: 300 mg Oxybutynin Chloride (Ditropan) 5 mg GT TID [facility] Stop: 05/18/17 21:32 Last Admin: 04/02/17 09:24 Dose: Not Given Senna (Senna) 8.6 mg GT BID [facility] Stop: 05/19/17 08:59 Last Admin: 04/02/17 09:24 Dose: Not Given Sodium Phosphate (Fleet Enema) 135 ml RC Q96H PRN PRN Reason: Constipation Stop: 05/19/17 11:22 General: no acute distress, cachectic HEENT: atraumatic, normocephalic, EOMI, other Neck: supple, no rigid Cardiovascular: S1S2, regular, no systolic murmur Lungs: clear to auscultation bilaterally, clear to percussion Abdomen: soft, catheter (suprapubic), no tender, no distended Extremities: other (contracted.), no cyanosis, no clubbing, no edema Neurological: awake, alert Skin: intact, no rash - Procedures Procedures: Procedures Procedure Code Date CHANGE DRAINAGE DEVICE IN BLADDER, EXTERNAL APPROACH [id number] 03/19/17 NUBIA SUBQ TISSUE 20 SQ CM/< 35903 06/21/13 INJECT ANTIBIOTIC 99.21 11/07/12 INSERT TEMP BLADDER CATH [id number] 03/19/17 NONEXCIS DEBRID OF WOUND, INFECT, OR BURN 86.28 06/21/13 REPLACE INDWELLING CATH 57.95 11/07/12 Infectious Disease Assmt/Plan - Problem List Patient Problems: All Active Problems FEVER WITH ABNORMAL LABS AND WBC (Acute) Decubitus ulcer (Active) L89.90 Fever (Active) R50.9 Urine screening abnormal (Active) - Assessment Assessment: 1. UTI. 2/2 infected suprapubic Ambriz. 2. fecal impaction. 3. Seizure disorder. 4. Mental retardation. 5. Suprapubic catheter, infected and malfunctioning. It has been changed. 6. Dysphagia, and G tube placement. 7. Malfunctioning Suprapubic Catheter. Recommendations: Continue meropenem for 14 days, meropenem can be changed to invanz 1 gm IV daily for 14 days from now. DC planning. Nutritional Asmnt/Malnutr-PDOC - Dietary Evaluation Malnutrition Findings (Please click <Entered> for more info): Nutritional Asmnt/Malnutrition Start: 03/21/17 16: 15 Text: Status: Complete Freq: Document 03/21/17 16:18 GSUN (Rec: 03/21/17 16:25 GSUN [email or web address]) Nutritional Asmnt/Malnutrition Patient General Information Nutritional Screening High Risk Screening Diagnosis Fevere r/o sepsis, possible UTI vs intraabdominal infection, fecal impactio Pertinent Medical Hx/Surgical Hx Severe mental retardation, cerebral palsy, seizure disorder, dysphagia with PEG, femur frature, suprapubic cath placement, stage IV decubitus ulcer Subjective Information 36 year old male from SNF. KUB: severely distended stool-filled colon and rectum. Visited pt with RN at bedside . Pt made eye contact with RD, non-verbal, no significant wasting noted. Obsered tube feeding off at this time. RN stated pt had 1 BM overnight, continues to have fever, abdomen distended but soft. Pt tolerating tube feeding well per RN notes and assessments. 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 Problem Problem Difficulty swallowing related to Etiology dysphagia severe mental retardation aeb Signs/Symptoms: PEG dependent Intervention/Recommendation Comments 1. Continue with SNF order Diabetisource 80ml/hr x 16hrs/ day, providing 1536kcal and 77g protein, meeting nutritional needs. Expected Outcomes/Goals Expected Outcomes/Goals 1. Pt continue to meet 100% of estimated nutritional needs on tube feeding with tolerance .
[2017-04-03] MEDS: INSULIN ASPART SLIDING SCALE 100 UNITS/ML UNIT SUBQ SCH ×4 (00:22→18:34)
[2017-04-03 05:33] LABS: MEAN PLATELET VOLUME 9.9 fl
[2017-04-03 05:45] LABS: HEMATOCRIT 39.4 % (39.0-49.0); MEAN CELL VOLUME 87.7 fl (80-99); PLATELET COUNT 249 Th/cmm (150-400); RED BLOOD COUNT 4.49 Mil/cmm (4.30-5.70); RED CELL DISTRIBUTION WIDTH 13.5 % (11.5-20.0)
[2017-04-03 05:49] LABS: WHITE BLOOD COUNT 10.9 Th/cmm (4.8-10.8)
[2017-04-03 06:00] LABS: ANION GAP 10.1 (7.0-16.0); BUN - UREA NITROGEN 14 mg/dL (7-25); CALCIUM SERUM 9.5 mg/dL (8.6-10.3); CARBON DIOXIDE 25.5 mEq/L (21.0-31.0); CHLORIDE 98 mEq/L (98-107); CREATININE - SERUM 0.4 mg/dL (0.7-1.3); GLUCOSE 108 mg/dL (70-105); MAGNESIUM 2.2 mg/dL (1.9-2.7); POTASSIUM SERUM 3.6 mEq/L (3.5-5.1); SODIUM SERUM 130 mEq/L (136-145)
[2017-04-03 07:27] LABS: BAND NEUTROPHILE 2 % (0-10); NEUTROPHILS 75 % (40-80); PLATELET ESTIMATE ADEQUATE (NORMAL); TOTAL CELLS COUNTED 100
[2017-04-03] MEDS: Ascorbic Acid 500 mg/5 mL UDC GT SCH (09:09)
[2017-04-03] MEDS: Lactulose 10 Gm/15 mL 30mL UDC PO SCH ×2 (09:09→17:40)
[2017-04-03] MEDS: Meropenem 1 GM in Sodium Chloride 0.9% 100 ML IV SCH ×2 (09:10→21:28)
--- NOTE | 2017-04-03 12:37 | Infectious Disease Prog Note ---
Infectious Disease Subjective - Review of Systems Service Date: 04/03/17 Subjective: No new change. Infectious Disease Objective - Results Result Diagrams: 04/04/17 04:52 04/04/17 04:52 Recent Labs: Laboratory Last Values WBC 10.9 Th/cmm (4.8-10.8) H D 04/03/17 04:40 RBC 4.49 Mil/cmm (4.30-5.70) 04/03/17 04:40 Hgb 13.0 gm/dL (13.2-17.3) L 04/03/17 04:40 Hct 39.4 % (39.0-49.0) 04/03/17 04:40 MCV 87.7 fl (80-99) 04/03/17 04:40 MCH 29.0 pg (26.0-30.0) 04/03/17 04:40 MCHC Differential 33.0 pg (28.0-36.0) 04/03/17 04:40 RDW 13.5 % (11.5-20.0) 04/03/17 04:40 Plt Count 249 Th/cmm (150-400) 04/03/17 04:40 MPV 9.9 fl 04/03/17 04:40 Neutrophils % 65.5 % (40.0-80.0) 04/02/17 04:35 Band Neutrophils % 2 % (0-10) 04/03/17 04:40 Lymphocytes % 22.0 % (20.0-50.0) 04/02/17 04:35 Monocytes % 8.5 % (2.0-10.0) 04/02/17 04:35 Eosinophils % 3.8 % (0.0-5.0) 04/02/17 04:35 Basophils % 0.2 % (0.0-2.0) 04/02/17 04:35 Neutrophils (Manual) 75 % (40-80) 04/03/17 04:40 Lymphocytes 15 % (20-50) L 04/03/17 04:40 Monocytes 8 % (2-10) 04/03/17 04:40 Platelet Estimate ADEQUATE (NORMAL) 04/03/17 04:40 PT 9.6 SECONDS (9.5-11.5) 04/02/17 04:35 INR 0.92 (0.5-1.4) 04/02/17 04:35 PTT (Actin FS) 25.6 SECONDS (26.0-38.0) L 04/02/17 04:35 Sodium 130 mEq/L (136-145) L 04/03/17 04:40 Potassium 3.6 mEq/L (3.5-5.1) 04/03/17 04:40 Chloride 98 mEq/L (98-107) 04/03/17 04:40 Carbon Dioxide 25.5 mEq/L (21.0-31.0) 04/03/17 04:40 Anion Gap 10.1 (7.0-16.0) 04/03/17 04:40 BUN 14 mg/dL (7-25) 04/03/17 04:40 Creatinine 0.4 mg/dL (0.7-1.3) L 04/03/17 04:40 Est GFR ( Amer) > 60.0 ml/min (>90) 04/03/17 04:40 Est GFR (Non-Af Amer) > 60.0 ml/min 04/03/17 04:40 BUN/Creatinine Ratio 35.0 04/03/17 04:40 Glucose 108 mg/dL (70-105) H 04/03/17 04:40 POC Glucose 115 MG/DL (70 - 105) H 04/03/17 04:41 Hemoglobin A1c % 6.0 % (4.0-6.0) 03/20/17 07:35 Whole Bld Lactic Acid 0.53 mmol/L (0.60-1.99) L 03/20/17 07:35 Calcium 9.5 mg/dL (8.6-10.3) 04/03/17 04:40 Magnesium 2.2 mg/dL (1.9-2.7) 04/03/17 04:40 Total Bilirubin 0.3 mg/dL (0.3-1.0) 03/24/17 06:00 AST 12 U/L (13-39) L 03/24/17 06:00 ALT 9 U/L (7-52) 03/24/17 06:00 Alkaline Phosphatase 44 U/L (34-104) 03/24/17 06:00 Total Protein 6.7 gm/dL (6.0-8.3) 03/24/17 06:00 Albumin 3.2 gm/dL (4.2-5.5) L 03/24/17 06:00 Globulin 3.5 gm/dL 03/24/17 06:00 Albumin/Globulin Ratio 0.9 (1.0-1.8) L 03/24/17 06:00 Urine Source AMBRIZ [place] 03/31/17 17:28 Urine Color YELLOW 03/31/17 17:28 Urine Clarity CLOUDY (CLEAR) 03/31/17 17:28 Urine pH 7.0 03/31/17 17:28 Ur Specific [place] 1.015 (1.005-1.030) 03/31/17 17:28 Urine Protein 100 mg/dL (NEGATIVE) H 03/31/17 17:28 Urine Glucose (UA) NEGATIVE mg/dL (NEGATIVE) 03/31/17 17:28 Urine Ketones 15 mg/dL (NEGATIVE) H 03/31/17 17:28 Urine Blood NEGATIVE (NEGATIVE) 03/31/17 17:28 Urine Nitrate NEGATIVE (NEGATIVE) 03/31/17 17:28 Urine Bilirubin NEGATIVE (NEGATIVE) 03/31/17 17:28 Urine Urobilinogen 4.0 E.U./dL (0.2 - 1.0) H 03/31/17 17:28 Ur Leukocyte Esterase MODERATE (NEGATIVE) H 03/31/17 17:28 Urine RBC 0-2 /hpf (0-5) H 03/31/17 17:28 Urine WBC >100 /hpf (0-5) H 03/31/17 17:28 Ur Epithelial Cells FEW /lpf (FEW) 03/31/17 17:28 Triple Phos Crystals MODERATE /hpf (FEW) 03/20/17 18:50 Amorphous Sediment MODERATE URATES (NONE SEEN) 03/31/17 17:28 Urine Bacteria MODERATE /hpf (NONE SEEN) 03/31/17 17:28 Hyaline Casts 0-2 /lpf (0-2) H 03/31/17 17:28 Vancomycin Trough 18.2 ug/mL (10-20) 03/25/17 05:00 - Physical Exam Vitals and I&O: Vital Signs Temp 97.4 F 04/03/17 11:24 Pulse 83 04/03/17 11:24 Resp 18 04/03/17 11:24 BP 100/63 04/03/17 11:24 Pulse Ox 97 04/03/17 11:24 Intake & Output 04/02/17 04/03/17 04/03/17 18:59 06:59 18:59 Intake Total 1200 238.333 0 Output Total 800 1500 Balance 400 -1261.667 0 Weight (lbs) 56.245 kg 56.245 kg Intake: Intake, IV Amount 100 78.333 0 Meropenem 1 gm In Sodium 100 78.333 0 Chloride 0.9% 100 ml @ 100 mls/hr IV Q12HR [facility] Rx#:[id number] Tube Feeding 800 160 Other 300 Output: Urine 800 1500 Other: # Bowel Movements 1 1 Stool Characteristics Soft Soft Soft Foamy Foamy Foamy Brown Brown Brown Active Medications: Current Medications Acetaminophen (Tylenol 650mg/20.3ml Suspension) 650 mg GT Q4HR PRN PRN Reason: Pain Or Fever >99.9 Stop: 05/18/17 21:32 Last Admin: 03/27/17 01:09 Dose: 650 mg Albuterol Sulfate (Albuterol 2.5mg/3ml Neb Ud) 2.5 mg HHN Q4H PRN PRN Reason: Shortness of Breath Last Admin: 03/24/17 15:38 Dose: 2.5 mg Ascorbic Acid (Vitamin C) 500 mg GT DAILY [facility] Stop: 05/19/17 08:59 Last Admin: 04/03/17 09:09 Dose: 500 mg Bisacodyl (Dulcolax 10 Mg Supp) 10 mg RC Q96H PRN PRN Reason: Constipation Stop: 05/18/17 21:32 Dextrose (Glutose 40%) 15 gm PO PRN PRN PRN Reason: hypoglycemia Stop: 05/19/17 11:22 Glucagon (Glucagen) 1 mg IM PRN PRN PRN Reason: hypoglycemia Stop: 05/19/17 11:22 Heparin Sodium (Porcine) (Heparin) 5,000 units SUBQ Q12HR [facility] Stop: 05/19/17 20:59 Last Admin: 04/03/17 09:10 Dose: 5,000 units Meropenem 1 gm/ Sodium (Chloride) 100 mls @ 100 mls/hr IV Q12HR [facility] Stop: 05/24/17 09:59 Last Admin: 04/03/17 09:10 Dose: 100 mls/hr Insulin Aspart (Novolog Insulin Sliding Scale) 0 units SUBQ Q6HR [facility] PRN Reason: Protocol Stop: 05/19/17 00:00 Last Admin: 04/03/17 05:41 Dose: Not Given Lactulose (Cephulac) 30 gm PO BID [facility] Stop: 05/19/17 16:59 Last Admin: 04/03/17 09:09 Dose: 30 gm Magnesium Hydroxide (Milk Of Magnesia) 30 ml GT Q72HR PRN PRN Reason: Constipation Stop: 05/18/17 21:32 Miscellaneous (Vte Chemical Prophylaxis Screen/ Admission) 1 ea MC PRN PRN PRN Reason: PROTOCOL Stop: 05/19/17 10:29 Oxcarbazepine (Trileptal) 300 mg GT BID [facility] PRN Reason: Protocol Stop: 05/19/17 08:59 Last Admin: 04/03/17 09:10 Dose: 300 mg Oxybutynin Chloride (Ditropan) 5 mg GT TID [facility] Stop: 05/18/17 21:32 Last Admin: 04/03/17 09:09 Dose: 5 mg Senna (Senna) 8.6 mg GT BID [facility] Stop: 05/19/17 08:59 Last Admin: 04/03/17 09:09 Dose: 8.6 mg Sodium Phosphate (Fleet Enema) 135 ml RC Q96H PRN PRN Reason: Constipation Stop: 05/19/17 11:22 General: no acute distress, well developed, well nourished HEENT: atraumatic, normocephalic, EOMI, moist mucous membrane, other Neck: supple, no thyromegaly, no lymphadenopathy, no rigid, no lines, no tracheostomy Cardiovascular: S1S2, regular, no irregular, no systolic murmur, no thrills, no gallops, no pacemaker Lungs: clear to auscultation bilaterally, clear to percussion Abdomen: soft, bowel sounds, catheter (suprapubic catheter, ( PEG tube).), no tender, no distended, no mass, no rebound, no hepatomegaly, no splenomegaly, no ascites, no guarding, no drain Extremities: no cyanosis, no edema Neurological: awake Skin: intact - Procedures Procedures: Procedures Procedure Code Date CHANGE DRAINAGE DEVICE IN BLADDER, EXTERNAL APPROACH [id number] 03/19/17 NUBIA SUBQ TISSUE 20 SQ CM/< 37368 06/21/13 INJECT ANTIBIOTIC 99.21 11/07/12 INSERT TEMP BLADDER CATH [id number] 03/19/17 NONEXCIS DEBRID OF WOUND, INFECT, OR BURN 86.28 06/21/13 REPLACE INDWELLING CATH 57.95 11/07/12 Infectious Disease Assmt/Plan - Problem List Patient Problems: All Active Problems FEVER WITH ABNORMAL LABS AND WBC (Acute) Decubitus ulcer (Active) L89.90 Fever (Active) R50.9 Urine screening abnormal (Active) - Assessment Assessment: 1. UTI. 2/2 infected suprapubic Ambriz. 2. fecal impaction. 3. Seizure disorder. 4. Mental retardation. 5. Suprapubic catheter, infected and malfunctioning. It has been changed. 6. Dysphagia, and G tube placement. 7. Malfunctioning Suprapubic Catheter. catheter was changed with G tube. 8. Candiduria. Recommendations: Continue meropenem for 14 days, meropenem can be changed to invanz 1 gm IV daily for 14 days from now. Add diflucan po for 10 days. DC planning. Nutritional Asmnt/Malnutr-PDOC - Dietary Evaluation Malnutrition Findings (Please click <Entered> for more info): Nutritional Asmnt/Malnutrition Start: 03/21/17 16: 15 Text: Status: Complete Freq: Document 03/21/17 16:18 GSUN (Rec: 03/21/17 16:25 [email or web address] [email or web address]) Nutritional Asmnt/Malnutrition Patient General Information Nutritional Screening High Risk Screening Diagnosis Fevere r/o sepsis, possible UTI vs intraabdominal infection, fecal impactio Pertinent Medical Hx/Surgical Hx Severe mental retardation, cerebral palsy, seizure disorder, dysphagia with PEG, femur frature, suprapubic cath placement, stage IV decubitus ulcer Subjective Information 36 year old male from SNF. KUB: severely distended stool-filled colon and rectum. Visited pt with RN at bedside . Pt made eye contact with RD, non-verbal, no significant wasting noted. Obsered tube feeding off at this time. RN stated pt had 1 BM overnight, continues to have fever, abdomen distended but soft. Pt tolerating tube feeding well per RN notes and assessments. Current Diet Order/ Nutrition Support Diabetisource at 80ml/hr x 16hrs/day Pertinent Medications Vitamin C, Dulcolax, Glutose 40%, Glucagen, Novolog, MOM, Senna, Nacl 0.9%, Fleet Enema Pertinent Labs 03/20: A1c 6 03/21: glucose 150H Nutritional Hx/Data Height 1.55 m Height (Calculated Centimeters) 154.9 Current Weight (lbs) 56.699 kg Weight (Calculated Kilograms) 56.7 Weight (Calculated Grams) 53947.0 [place] Body Weight 112 Weight Status Approriate GI Symptoms GI Symptoms Constipation Usual diet at home [facility] SNF: Glucerna at 80ml/hr x 16hrs/day Skin Integrity/Comment: Rolando Valdivia. 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 Problem Problem Difficulty swallowing related to Etiology dysphagia severe mental retardation aeb Signs/Symptoms: PEG dependent Intervention/Recommendation Comments 1. Continue with SNF order Diabetisource 80ml/hr x 16hrs/ day, providing 1536kcal and 77g protein, meeting nutritional needs. Expected Outcomes/Goals Expected Outcomes/Goals 1. Pt continue to meet 100% of estimated nutritional needs on tube feeding with tolerance .
[2017-04-04] MEDS: INSULIN ASPART SLIDING SCALE 100 UNITS/ML UNIT SUBQ SCH ×4 (00:26→17:54)
[2017-04-04 05:17] LABS: % EOSINOPHILS 5.9 % (0.0-5.0); % MONOCYTES 7.3 % (2.0-10.0); % NEUTROPHILS 58.8 % (40.0-80.0); HEMATOCRIT 38.2 % (39.0-49.0); HEMOGLOBIN 12.6 gm/dL (13.2-17.3); MEAN CELL VOLUME 87.8 fl (80-99); MEAN CORPUSCULAR HEMOGLOBIN 28.9 pg (26.0-30.0); MEAN CORPUSCULAR HGB CONC 32.9 pg (28.0-36.0); MEAN PLATELET VOLUME 9.2 fl; PLATELET COUNT 233 Th/cmm (150-400); RED BLOOD COUNT 4.35 Mil/cmm (4.30-5.70); RED CELL DISTRIBUTION WIDTH 13.6 % (11.5-20.0)
[2017-04-04 05:24] LABS: WHITE BLOOD COUNT 5.1 Th/cmm (4.8-10.8)
[2017-04-04 05:30] LABS: ANION GAP 7.8 (7.0-16.0); BUN - UREA NITROGEN 17 mg/dL (7-25); BUN/CREATININE RATIO 42.5; CALCIUM SERUM 9.4 mg/dL (8.6-10.3); CARBON DIOXIDE 27.8 mEq/L (21.0-31.0); CHLORIDE 99 mEq/L (98-107); CREATININE - SERUM 0.4 mg/dL (0.7-1.3); GLUCOSE 115 mg/dL (70-105); POTASSIUM SERUM 3.6 mEq/L (3.5-5.1); SODIUM SERUM 131 mEq/L (136-145)
[2017-04-04] MEDS: Ascorbic Acid 500 mg/5 mL UDC GT SCH (10:03)
[2017-04-04] MEDS: Lactulose 10 Gm/15 mL 30mL UDC PO SCH ×2 (10:03→17:56)
[2017-04-04] MEDS: Meropenem 1 GM in Sodium Chloride 0.9% 100 ML IV SCH (10:12)
--- NOTE | 2017-04-04 10:50 | Infectious Disease Prog Note ---
Infectious Disease Subjective - Review of Systems Service Date: 04/04/17 Subjective: No new change. Infectious Disease Objective - Results Result Diagrams: 04/04/17 04:52 04/04/17 04:52 Recent Labs: Laboratory Last Values WBC 5.1 Th/cmm (4.8-10.8) D 04/04/17 04:52 RBC 4.35 Mil/cmm (4.30-5.70) 04/04/17 04:52 Hgb 12.6 gm/dL (13.2-17.3) L 04/04/17 04:52 Hct 38.2 % (39.0-49.0) L 04/04/17 04:52 MCV 87.8 fl (80-99) 04/04/17 04:52 MCH 28.9 pg (26.0-30.0) 04/04/17 04:52 MCHC Differential 32.9 pg (28.0-36.0) 04/04/17 04:52 RDW 13.6 % (11.5-20.0) 04/04/17 04:52 Plt Count 233 Th/cmm (150-400) 04/04/17 04:52 MPV 9.2 fl 04/04/17 04:52 Neutrophils % 58.8 % (40.0-80.0) 04/04/17 04:52 Band Neutrophils % 2 % (0-10) 04/03/17 04:40 Lymphocytes % 28.0 % (20.0-50.0) 04/04/17 04:52 Monocytes % 7.3 % (2.0-10.0) 04/04/17 04:52 Eosinophils % 5.9 % (0.0-5.0) H 04/04/17 04:52 Basophils % 0.0 % (0.0-2.0) 04/04/17 04:52 Neutrophils (Manual) 75 % (40-80) 04/03/17 04:40 Lymphocytes 15 % (20-50) L 04/03/17 04:40 Monocytes 8 % (2-10) 04/03/17 04:40 Platelet Estimate ADEQUATE (NORMAL) 04/03/17 04:40 PT 9.6 SECONDS (9.5-11.5) 04/02/17 04:35 INR 0.92 (0.5-1.4) 04/02/17 04:35 PTT (Actin FS) 25.6 SECONDS (26.0-38.0) L 04/02/17 04:35 Sodium 131 mEq/L (136-145) L 04/04/17 04:52 Potassium 3.6 mEq/L (3.5-5.1) 04/04/17 04:52 Chloride 99 mEq/L (98-107) 04/04/17 04:52 Carbon Dioxide 27.8 mEq/L (21.0-31.0) 04/04/17 04:52 Anion Gap 7.8 (7.0-16.0) 04/04/17 04:52 BUN 17 mg/dL (7-25) 04/04/17 04:52 Creatinine 0.4 mg/dL (0.7-1.3) L 04/04/17 04:52 Est GFR ( Amer) > 60.0 ml/min (>90) 04/04/17 04:52 Est GFR (Non-Af Amer) > 60.0 ml/min 04/04/17 04:52 BUN/Creatinine Ratio 42.5 04/04/17 04:52 Glucose 115 mg/dL (70-105) H 04/04/17 04:52 POC Glucose 111 MG/DL (70 - 105) H 04/04/17 06:34 Hemoglobin A1c % 6.0 % (4.0-6.0) 03/20/17 07:35 Whole Bld Lactic Acid 0.53 mmol/L (0.60-1.99) L 03/20/17 07:35 Calcium 9.4 mg/dL (8.6-10.3) 04/04/17 04:52 Magnesium 2.2 mg/dL (1.9-2.7) 04/03/17 04:40 Total Bilirubin 0.3 mg/dL (0.3-1.0) 03/24/17 06:00 AST 12 U/L (13-39) L 03/24/17 06:00 ALT 9 U/L (7-52) 03/24/17 06:00 Alkaline Phosphatase 44 U/L (34-104) 03/24/17 06:00 Total Protein 6.7 gm/dL (6.0-8.3) 03/24/17 06:00 Albumin 3.2 gm/dL (4.2-5.5) L 03/24/17 06:00 Globulin 3.5 gm/dL 03/24/17 06:00 Albumin/Globulin Ratio 0.9 (1.0-1.8) L 03/24/17 06:00 Urine Source [place]Z [place] 03/31/17 17:28 Urine Color YELLOW 03/31/17 17:28 Urine Clarity CLOUDY (CLEAR) 03/31/17 17:28 Urine pH 7.0 03/31/17 17:28 Ur Specific [place] 1.015 (1.005-1.030) 03/31/17 17:28 Urine Protein 100 mg/dL (NEGATIVE) H 03/31/17 17:28 Urine Glucose (UA) NEGATIVE mg/dL (NEGATIVE) 03/31/17 17:28 Urine Ketones 15 mg/dL (NEGATIVE) H 03/31/17 17:28 Urine Blood NEGATIVE (NEGATIVE) 03/31/17 17:28 Urine Nitrate NEGATIVE (NEGATIVE) 03/31/17 17:28 Urine Bilirubin NEGATIVE (NEGATIVE) 03/31/17 17:28 Urine Urobilinogen 4.0 E.U./dL (0.2 - 1.0) H 03/31/17 17:28 Ur Leukocyte Esterase MODERATE (NEGATIVE) H 03/31/17 17:28 Urine RBC 0-2 /hpf (0-5) H 03/31/17 17:28 Urine WBC >100 /hpf (0-5) H 03/31/17 17:28 Ur Epithelial Cells FEW /lpf (FEW) 03/31/17 17:28 Triple Phos Crystals MODERATE /hpf (FEW) 03/20/17 18:50 Amorphous Sediment MODERATE URATES (NONE SEEN) 03/31/17 17:28 Urine Bacteria MODERATE /hpf (NONE SEEN) 03/31/17 17:28 Hyaline Casts 0-2 /lpf (0-2) H 03/31/17 17:28 Vancomycin Trough 18.2 ug/mL (10-20) 03/25/17 05:00 - Physical Exam Vitals and I&O: Vital Signs Temp 97.7 F 04/04/17 08:00 Pulse 76 04/04/17 08:00 Resp 18 04/04/17 08:00 BP 102/53 04/04/17 08:00 Pulse Ox 96 04/04/17 08:00 Intake & Output 04/03/17 04/04/17 04/04/17 18:59 06:59 18:59 Intake Total 980 100 Output Total 350 300 Balance 630 -200 Weight (lbs) 56.245 kg 55.565 kg Intake: Intake, IV Amount 100 100 Meropenem 1 gm In Sodium 100 100 Chloride 0.9% 100 ml @ 100 mls/hr IV Q12HR [facility] Rx#:[id number] Tube Feeding 880 Output: Urine 350 300 Other: # Bowel Movements 0 0 Stool Characteristics Soft Soft Foamy Foamy Brown Brown Active Medications: Current Medications Acetaminophen (Tylenol 650mg/20.3ml Suspension) 650 mg GT Q4HR PRN PRN Reason: Pain Or Fever >99.9 Stop: 05/18/17 21:32 Last Admin: 03/27/17 01:09 Dose: 650 mg Albuterol Sulfate (Albuterol 2.5mg/3ml Neb Ud) 2.5 mg HHN Q4H PRN PRN Reason: Shortness of Breath Last Admin: 03/24/17 15:38 Dose: 2.5 mg Ascorbic Acid (Vitamin C) 500 mg GT DAILY [facility] Stop: 05/19/17 08:59 Last Admin: 04/04/17 10:03 Dose: 500 mg Bisacodyl (Dulcolax 10 Mg Supp) 10 mg RC Q96H PRN PRN Reason: Constipation Stop: 05/18/17 21:32 Dextrose (Glutose 40%) 15 gm PO PRN PRN PRN Reason: hypoglycemia Stop: 05/19/17 11:22 Fluconazole (Diflucan) 100 mg PO DAILY [facility] Stop: 04/14/17 10:46 Glucagon (Glucagen) 1 mg IM PRN PRN PRN Reason: hypoglycemia Stop: 05/19/17 11:22 Heparin Sodium (Porcine) (Heparin) 5,000 units SUBQ Q12HR [facility] Stop: 04/11/17 20:59 Last Admin: 04/04/17 10:03 Dose: 5,000 units Meropenem 1 gm/ Sodium (Chloride) 100 mls @ 100 mls/hr IV Q12HR [facility] Stop: 05/24/17 09:59 Last Admin: 04/04/17 10:12 Dose: 100 mls/hr Insulin Aspart (Novolog Insulin Sliding Scale) 0 units SUBQ Q6HR [facility] PRN Reason: Protocol Stop: 05/19/17 00:00 Last Admin: 04/04/17 07:43 Dose: Not Given Lactulose (Cephulac) 30 gm PO BID [facility] Stop: 05/19/17 16:59 Last Admin: 04/04/17 10:03 Dose: 30 gm Magnesium Hydroxide (Milk Of Magnesia) 30 ml GT Q72HR PRN PRN Reason: Constipation Stop: 05/18/17 21:32 Miscellaneous (Vte Chemical Prophylaxis Screen/ Admission) 1 ea MC PRN PRN PRN Reason: PROTOCOL Stop: 05/19/17 10:29 Oxcarbazepine (Trileptal) 300 mg GT BID [facility] PRN Reason: Protocol Stop: 05/19/17 08:59 Last Admin: 04/04/17 10:07 Dose: 300 mg Oxybutynin Chloride (Ditropan) 5 mg GT TID [facility] Stop: 05/18/17 21:32 Last Admin: 04/04/17 10:04 Dose: 5 mg Senna (Senna) 8.6 mg GT BID [facility] Stop: 05/19/17 08:59 Last Admin: 04/04/17 10:04 Dose: 8.6 mg Sodium Phosphate (Fleet Enema) 135 ml RC Q96H PRN PRN Reason: Constipation Stop: 05/19/17 11:22 General: no acute distress, well developed, well nourished HEENT: atraumatic, normocephalic, PERRLA, EOMI Neck: supple, no thyromegaly, no lymphadenopathy, no rigid Cardiovascular: S1S2, regular, no irregular, no systolic murmur, no thrills, no gallops, no pacemaker Lungs: clear to auscultation bilaterally, clear to percussion, no crackles, no wheeze, no rhonchi Abdomen: soft, catheter (supra pubic catheter ( Gtube)), no tender, no distended, no mass, no rebound, no hepatomegaly, no splenomegaly, no ascites, no guarding, no drain Extremities: no cyanosis, no clubbing, no AVF/AVG Neurological: awake, alert Skin: intact - Procedures Procedures: Procedures Procedure Code Date CHANGE DRAINAGE DEVICE IN BLADDER, EXTERNAL APPROACH [id number] 03/19/17 NUBIA SUBQ TISSUE 20 SQ CM/< 82112 06/21/13 INJECT ANTIBIOTIC 99.21 11/07/12 INSERT TEMP BLADDER CATH [id number] 03/19/17 NONEXCIS DEBRID OF WOUND, INFECT, OR BURN 86.28 06/21/13 REPLACE INDWELLING CATH 57.95 11/07/12 Infectious Disease Assmt/Plan - Problem List Patient Problems: All Active Problems FEVER WITH ABNORMAL LABS AND WBC (Acute) Decubitus ulcer (Active) L89.90 Fever (Active) R50.9 Urine screening abnormal (Active) - Assessment Assessment: 1. UTI. 2/2 infected suprapubic Ambriz. 2. fecal impaction. 3. Seizure disorder. 4. Mental retardation. 5. Suprapubic catheter, infected and malfunctioning. It has been changed. 6. Dysphagia, and G tube placement. 7. Malfunctioning Suprapubic Catheter. catheter was changed with G tube. 8. Candiduria. Recommendations: Continue meropenem for 14 days, meropenem can be changed to invanz 1 gm IV daily for 14 days from now. Continue diflucan po for 10 days. DC planning. Nutritional Asmnt/Malnutr-PDOC - Dietary Evaluation Malnutrition Findings (Please click <Entered> for more info): Nutritional Asmnt/Malnutrition Start: 03/21/17 16: 15 Text: Status: Complete Freq: Document 03/21/17 16:18 GSUN (Rec: 03/21/17 16:25 [email or web address] [email or web address]) Nutritional Asmnt/Malnutrition Patient General Information Nutritional Screening High Risk Screening Diagnosis Fevere r/o sepsis, possible UTI vs intraabdominal infection, fecal impactio Pertinent Medical Hx/Surgical Hx Severe mental retardation, cerebral palsy, seizure disorder, dysphagia with PEG, femur frature, suprapubic cath placement, stage IV decubitus ulcer Subjective Information 36 year old male from SNF. KUB: severely distended stool-filled colon and rectum. Visited pt with RN at bedside . Pt made eye contact with RD, non-verbal, no significant wasting noted. Obsered tube feeding off at this time. RN stated pt had 1 BM overnight, continues to have fever, abdomen distended but soft. Pt tolerating tube feeding well per RN notes and assessments. 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 Problem Problem Difficulty swallowing related to Etiology dysphagia severe mental retardation aeb Signs/Symptoms: PEG dependent Intervention/Recommendation Comments 1. Continue with SNF order Diabetisource 80ml/hr x 16hrs/ day, providing 1536kcal and 77g protein, meeting nutritional needs. Expected Outcomes/Goals Expected Outcomes/Goals 1. Pt continue to meet 100% of estimated nutritional needs on tube feeding with tolerance .
[2017-04-05] MEDS: Meropenem 1 GM in Sodium Chloride 0.9% 100 ML IV SCH ×3 (02:33→20:33)
[2017-04-05] MEDS: INSULIN ASPART SLIDING SCALE 100 UNITS/ML UNIT SUBQ SCH ×5 (02:47→17:33)
[2017-04-05] MEDS: Lactulose 10 Gm/15 mL 30mL UDC PO SCH ×2 (09:08→17:29)
[2017-04-05] MEDS: Ascorbic Acid 500 mg/5 mL UDC GT SCH (09:08)
--- NOTE | 2017-04-05 15:33 | General Progress Note ---
Subjective - Review of Systems Service Date: 04/05/17 Subjective: Alert, affordable, nonverbal Objective - Results Result Diagrams: 04/04/17 04:52 04/04/17 04:52 Recent Labs: Laboratory Last Values WBC 5.1 Th/cmm (4.8-10.8) D 04/04/17 04:52 RBC 4.35 Mil/cmm (4.30-5.70) 04/04/17 04:52 Hgb 12.6 gm/dL (13.2-17.3) L 04/04/17 04:52 Hct 38.2 % (39.0-49.0) L 04/04/17 04:52 MCV 87.8 fl (80-99) 04/04/17 04:52 MCH 28.9 pg (26.0-30.0) 04/04/17 04:52 MCHC Differential 32.9 pg (28.0-36.0) 04/04/17 04:52 RDW 13.6 % (11.5-20.0) 04/04/17 04:52 Plt Count 233 Th/cmm (150-400) 04/04/17 04:52 MPV 9.2 fl 04/04/17 04:52 Neutrophils % 58.8 % (40.0-80.0) 04/04/17 04:52 Band Neutrophils % 2 % (0-10) 04/03/17 04:40 Lymphocytes % 28.0 % (20.0-50.0) 04/04/17 04:52 Monocytes % 7.3 % (2.0-10.0) 04/04/17 04:52 Eosinophils % 5.9 % (0.0-5.0) H 04/04/17 04:52 Basophils % 0.0 % (0.0-2.0) 04/04/17 04:52 Neutrophils (Manual) 75 % (40-80) 04/03/17 04:40 Lymphocytes 15 % (20-50) L 04/03/17 04:40 Monocytes 8 % (2-10) 04/03/17 04:40 Platelet Estimate ADEQUATE (NORMAL) 04/03/17 04:40 PT 9.6 SECONDS (9.5-11.5) 04/02/17 04:35 INR 0.92 (0.5-1.4) 04/02/17 04:35 PTT (Actin FS) 25.6 SECONDS (26.0-38.0) L 04/02/17 04:35 Sodium 131 mEq/L (136-145) L 04/04/17 04:52 Potassium 3.6 mEq/L (3.5-5.1) 04/04/17 04:52 Chloride 99 mEq/L (98-107) 04/04/17 04:52 Carbon Dioxide 27.8 mEq/L (21.0-31.0) 04/04/17 04:52 Anion Gap 7.8 (7.0-16.0) 04/04/17 04:52 BUN 17 mg/dL (7-25) 04/04/17 04:52 Creatinine 0.4 mg/dL (0.7-1.3) L 04/04/17 04:52 Est GFR ( Amer) > 60.0 ml/min (>90) 04/04/17 04:52 Est GFR (Non-Af Amer) > 60.0 ml/min 04/04/17 04:52 BUN/Creatinine Ratio 42.5 04/04/17 04:52 Glucose 115 mg/dL (70-105) H 04/04/17 04:52 POC Glucose 154 MG/DL (70 - 105) H 04/05/17 12:13 Hemoglobin A1c % 6.0 % (4.0-6.0) 03/20/17 07:35 Whole Bld Lactic Acid 0.53 mmol/L (0.60-1.99) L 03/20/17 07:35 Calcium 9.4 mg/dL (8.6-10.3) 04/04/17 04:52 Magnesium 2.2 mg/dL (1.9-2.7) 04/03/17 04:40 Total Bilirubin 0.3 mg/dL (0.3-1.0) 03/24/17 06:00 AST 12 U/L (13-39) L 03/24/17 06:00 ALT 9 U/L (7-52) 03/24/17 06:00 Alkaline Phosphatase 44 U/L (34-104) 03/24/17 06:00 Total Protein 6.7 gm/dL (6.0-8.3) 03/24/17 06:00 Albumin 3.2 gm/dL (4.2-5.5) L 03/24/17 06:00 Globulin 3.5 gm/dL 03/24/17 06:00 Albumin/Globulin Ratio 0.9 (1.0-1.8) L 03/24/17 06:00 Urine Source AMBRIZ PORT 03/31/17 17:28 Urine Color YELLOW 03/31/17 17:28 Urine Clarity CLOUDY (CLEAR) 03/31/17 17:28 Urine pH 7.0 03/31/17 17:28 Ur Specific [place] 1.015 (1.005-1.030) 03/31/17 17:28 Urine Protein 100 mg/dL (NEGATIVE) H 03/31/17 17:28 Urine Glucose (UA) NEGATIVE mg/dL (NEGATIVE) 03/31/17 17:28 Urine Ketones 15 mg/dL (NEGATIVE) H 03/31/17 17:28 Urine Blood NEGATIVE (NEGATIVE) 03/31/17 17:28 Urine Nitrate NEGATIVE (NEGATIVE) 03/31/17 17:28 Urine Bilirubin NEGATIVE (NEGATIVE) 03/31/17 17:28 Urine Urobilinogen 4.0 E.U./dL (0.2 - 1.0) H 03/31/17 17:28 Ur Leukocyte Esterase MODERATE (NEGATIVE) H 03/31/17 17:28 Urine RBC 0-2 /hpf (0-5) H 03/31/17 17:28 Urine WBC >100 /hpf (0-5) H 03/31/17 17:28 Ur Epithelial Cells FEW /lpf (FEW) 03/31/17 17:28 Triple Phos Crystals MODERATE /hpf (FEW) 03/20/17 18:50 Amorphous Sediment MODERATE URATES (NONE SEEN) 03/31/17 17:28 Urine Bacteria MODERATE /hpf (NONE SEEN) 03/31/17 17:28 Hyaline Casts 0-2 /lpf (0-2) H 03/31/17 17:28 Vancomycin Trough 18.2 ug/mL (10-20) 03/25/17 05:00 - Physical Exam Vitals and I&O: Vital Signs Temp 97.6 F 04/05/17 11:30 Pulse 75 04/05/17 11:30 Resp 18 04/05/17 11:30 BP 118/64 04/05/17 11:30 Pulse Ox 97 04/05/17 11:30 Intake & Output 04/04/17 04/05/17 04/05/17 18:59 06:59 18:59 Intake Total 1060 100 100 Output Total 551 Balance 509 100 100 Weight (lbs) 55.338 kg Intake: Intake, IV Amount 100 100 100 Meropenem 1 gm In Sodium 100 100 100 Chloride 0.9% 100 ml @ 100 mls/hr IV Q12HR [facility] Rx#:[id number] Tube Feeding 960 Output: Urine 550 Stool 1 Other: Stool Characteristics Soft Soft Active Medications: Current Medications Acetaminophen (Tylenol 650mg/20.3ml Suspension) 650 mg GT Q4HR PRN PRN Reason: Pain Or Fever >99.9 Stop: 05/18/17 21:32 Last Admin: 03/27/17 01:09 Dose: 650 mg Albuterol Sulfate (Albuterol 2.5mg/3ml Neb Ud) 2.5 mg HHN Q4H PRN PRN Reason: Shortness of Breath Last Admin: 03/24/17 15:38 Dose: 2.5 mg Ascorbic Acid (Vitamin C) 500 mg GT DAILY [facility] Stop: 05/19/17 08:59 Last Admin: 04/05/17 09:08 Dose: 500 mg Bisacodyl (Dulcolax 10 Mg Supp) 10 mg RC Q96H PRN PRN Reason: Constipation Stop: 05/18/17 21:32 Dextrose (Glutose 40%) 15 gm PO PRN PRN PRN Reason: hypoglycemia Stop: 05/19/17 11:22 Fluconazole (Diflucan) 100 mg PO DAILY [facility] Stop: 04/14/17 10:46 Last Admin: 04/05/17 14:11 Dose: 100 mg Glucagon (Glucagen) 1 mg IM PRN PRN PRN Reason: hypoglycemia Stop: 05/19/17 11:22 Heparin Sodium (Porcine) (Heparin) 5,000 units SUBQ Q12HR [facility] Stop: 04/11/17 20:59 Last Admin: 04/05/17 09:08 Dose: 5,000 units Meropenem 1 gm/ Sodium (Chloride) 100 mls @ 100 mls/hr IV Q12HR [facility] Stop: 05/24/17 09:59 Last Infusion: 04/05/17 13:52 Dose: Infused Insulin Aspart (Novolog Insulin Sliding Scale) 0 units SUBQ Q6HR [facility] PRN Reason: Protocol Stop: 05/19/17 00:00 Last Admin: 04/05/17 12:23 Dose: 2 units Lactulose (Cephulac) 30 gm PO BID [facility] Stop: 05/19/17 16:59 Last Admin: 04/05/17 09:08 Dose: 30 gm Magnesium Hydroxide (Milk Of Magnesia) 30 ml GT Q72HR PRN PRN Reason: Constipation Stop: 05/18/17 21:32 Miscellaneous (Vte Chemical Prophylaxis Screen/ Admission) 1 ea [facility] PRN PRN PRN Reason: PROTOCOL Stop: 05/19/17 10:29 Oxcarbazepine (Trileptal) 300 mg GT BID [facility] PRN Reason: Protocol Stop: 05/19/17 08:59 Last Admin: 04/05/17 09:09 Dose: 300 mg Oxybutynin Chloride (Ditropan) 5 mg GT TID [facility] Stop: 05/18/17 21:32 Last Admin: 04/05/17 13:51 Dose: 5 mg Senna (Senna) 8.6 mg GT BID [facility] Stop: 05/19/17 08:59 Last Admin: 04/05/17 09:09 Dose: 8.6 mg Sodium Phosphate (Fleet Enema) 135 ml RC Q96H PRN PRN Reason: Constipation Stop: 05/19/17 11:22 General: Alert, No acute distress, Other (Confused, non verbal) HEENT: Atraumatic, EOMI, Mucous membr. moist/pink Neck: Supple, +2 carotid pulse wo bruit Cardiovascular: Regular rate, Normal S1, Normal S2 Lungs: Clear to auscultation Abdomen: Bowel sounds, Soft Extremities: Other (No edema), no Edema Neurological: Normal tone, Sensation intact, Other (Non ambulatory) Skin: Other (Warm and dry), no Rash Psych/Mental Status: Mood NL, Other (Confused) - Procedures Procedures: Procedures Procedure Code Date CHANGE DRAINAGE DEVICE IN BLADDER, EXTERNAL APPROACH [id number] 03/19/17 NUBIA SUBQ TISSUE 20 SQ CM/< 53859 06/21/13 INJECT ANTIBIOTIC 99.21 11/07/12 INSERT TEMP BLADDER CATH 55272 03/19/17 NONEXCIS DEBRID OF WOUND, INFECT, OR BURN 86.28 06/21/13 REPLACE INDWELLING CATH 57.95 11/07/12 Assessment/Plan - Problem List Patient Problems: All Active Problems FEVER WITH ABNORMAL LABS AND WBC (Acute) Decubitus ulcer (Active) L89.90 Fever (Active) R50.9 Urine screening abnormal (Active) - Assessment Assessment: P. stuartii complicated UTI Epilepsy Neurogenic bladder status post suprapubic tube Hyponatremia Functional quadriplegia - Plan Plan: Lab - Result Diagrams 04/04/17 04:52 04/04/17 04:52 Current Medications Acetaminophen (Tylenol 650mg/20.3ml Suspension) 650 mg GT Q4HR PRN PRN Reason: Pain Or Fever >99.9 Stop: 05/18/17 21:32 Last Admin: 03/27/17 01:09 Dose: 650 mg Albuterol Sulfate (Albuterol 2.5mg/3ml Neb Ud) 2.5 mg HHN Q4H PRN PRN Reason: Shortness of Breath Last Admin: 03/24/17 15:38 Dose: 2.5 mg Ascorbic Acid (Vitamin C) 500 mg GT DAILY [facility] Stop: 05/19/17 08:59 Last Admin: 04/05/17 09:08 Dose: 500 mg Bisacodyl (Dulcolax 10 Mg Supp) 10 mg RC Q96H PRN PRN Reason: Constipation Stop: 05/18/17 21:32 Dextrose (Glutose 40%) 15 gm PO PRN PRN PRN Reason: hypoglycemia Stop: 05/19/17 11:22 Fluconazole (Diflucan) 100 mg PO DAILY [facility] Stop: 04/14/17 10:46 Last Admin: 04/05/17 14:11 Dose: 100 mg Glucagon (Glucagen) 1 mg IM PRN PRN PRN Reason: hypoglycemia Stop: 05/19/17 11:22 Heparin Sodium (Porcine) (Heparin) 5,000 units SUBQ Q12HR [facility] Stop: 04/11/17 20:59 Last Admin: 04/05/17 09:08 Dose: 5,000 units Meropenem 1 gm/ Sodium (Chloride) 100 mls @ 100 mls/hr IV Q12HR [facility] Stop: 05/24/17 09:59 Last Infusion: 04/05/17 13:52 Dose: Infused Insulin Aspart (Novolog Insulin Sliding Scale) 0 units SUBQ Q6HR [facility] PRN Reason: Protocol Stop: 05/19/17 00:00 Last Admin: 04/05/17 12:23 Dose: 2 units Lactulose (Cephulac) 30 gm PO BID [facility] Stop: 05/19/17 16:59 Last Admin: 04/05/17 09:08 Dose: 30 gm Magnesium Hydroxide (Milk Of Magnesia) 30 ml GT Q72HR PRN PRN Reason: Constipation Stop: 05/18/17 21:32 Miscellaneous (Vte Chemical Prophylaxis Screen/ Admission) 1 ea [facility] PRN PRN PRN Reason: PROTOCOL Stop: 05/19/17 10:29 Oxcarbazepine (Trileptal) 300 mg GT BID [facility] PRN Reason: Protocol Stop: 05/19/17 08:59 Last Admin: 04/05/17 09:09 Dose: 300 mg Oxybutynin Chloride (Ditropan) 5 mg GT TID [facility] Stop: 05/18/17 21:32 Last Admin: 04/05/17 13:51 Dose: 5 mg Senna (Senna) 8.6 mg GT BID [facility] Stop: 05/19/17 08:59 Last Admin: 04/05/17 09:09 Dose: 8.6 mg Sodium Phosphate (Fleet Enema) 135 ml RC Q96H PRN PRN Reason: Constipation Stop: 05/19/17 11:22 No further leakage from suprapubic tube Discharge planning in progress Nutritional Asmnt/Malnutr-PDOC - Dietary Evaluation Malnutrition Findings (Please click <Entered> for more info): Nutritional Asmnt/Malnutrition Start: 03/21/17 16: 15 Text: Status: Complete Freq: Document 03/21/17 16:18 GSUN (Rec: 03/21/17 16:25 [email or web address] [email or web address]) Nutritional Asmnt/Malnutrition Patient General Information Nutritional Screening High Risk Screening Diagnosis Fevere r/o sepsis, possible UTI vs intraabdominal infection, fecal impactio Pertinent Medical Hx/Surgical Hx Severe mental retardation, cerebral palsy, seizure disorder, dysphagia with PEG, femur frature, suprapubic cath placement, stage IV decubitus ulcer Subjective Information 36 year old male from SNF. KUB: severely distended stool-filled colon and rectum. Visited pt with RN at bedside . Pt made eye contact with RD, non-verbal, no significant wasting noted. Obsered tube feeding off at this time. RN stated pt had 1 BM overnight, continues to have fever, abdomen distended but soft. Pt tolerating tube feeding well per RN notes and assessments. 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 Problem Problem Difficulty swallowing related to Etiology dysphagia severe mental retardation aeb Signs/Symptoms: PEG dependent Intervention/Recommendation Comments 1. Continue with SNF order Diabetisource 80ml/hr x 16hrs/ day, providing 1536kcal and 77g protein, meeting nutritional needs. Expected Outcomes/Goals Expected Outcomes/Goals 1. Pt continue to meet 100% of estimated nutritional needs on tube feeding with tolerance .
[2017-04-06] MEDS: INSULIN ASPART SLIDING SCALE 100 UNITS/ML UNIT SUBQ SCH ×4 (01:03→17:26)
[2017-04-06] MEDS: Ascorbic Acid 500 mg/5 mL UDC GT SCH (08:28)
[2017-04-06] MEDS: Meropenem 1 GM in Sodium Chloride 0.9% 100 ML IV SCH ×2 (08:28→20:59)
[2017-04-06] MEDS: Lactulose 10 Gm/15 mL 30mL UDC PO SCH ×2 (08:30→16:16)
[2017-04-06] MEDS ORDERED: Diatrizoate Meglumine/Diatri 30 mL Sol PO ONE (11:59)
--- NOTE | 2017-04-06 14:01 | Infectious Disease Prog Note ---
Infectious Disease Subjective - Review of Systems Service Date: 04/06/17 Subjective: No new change. Infectious Disease Objective - Results Result Diagrams: 04/04/17 04:52 04/04/17 04:52 Recent Labs: Laboratory Last Values WBC 5.1 Th/cmm (4.8-10.8) D 04/04/17 04:52 RBC 4.35 Mil/cmm (4.30-5.70) 04/04/17 04:52 Hgb 12.6 gm/dL (13.2-17.3) L 04/04/17 04:52 Hct 38.2 % (39.0-49.0) L 04/04/17 04:52 MCV 87.8 fl (80-99) 04/04/17 04:52 MCH 28.9 pg (26.0-30.0) 04/04/17 04:52 MCHC Differential 32.9 pg (28.0-36.0) 04/04/17 04:52 RDW 13.6 % (11.5-20.0) 04/04/17 04:52 Plt Count 233 Th/cmm (150-400) 04/04/17 04:52 MPV 9.2 fl 04/04/17 04:52 Neutrophils % 58.8 % (40.0-80.0) 04/04/17 04:52 Band Neutrophils % 2 % (0-10) 04/03/17 04:40 Lymphocytes % 28.0 % (20.0-50.0) 04/04/17 04:52 Monocytes % 7.3 % (2.0-10.0) 04/04/17 04:52 Eosinophils % 5.9 % (0.0-5.0) H 04/04/17 04:52 Basophils % 0.0 % (0.0-2.0) 04/04/17 04:52 Neutrophils (Manual) 75 % (40-80) 04/03/17 04:40 Lymphocytes 15 % (20-50) L 04/03/17 04:40 Monocytes 8 % (2-10) 04/03/17 04:40 Platelet Estimate ADEQUATE (NORMAL) 04/03/17 04:40 PT 9.6 SECONDS (9.5-11.5) 04/02/17 04:35 INR 0.92 (0.5-1.4) 04/02/17 04:35 PTT (Actin FS) 25.6 SECONDS (26.0-38.0) L 04/02/17 04:35 Sodium 131 mEq/L (136-145) L 04/04/17 04:52 Potassium 3.6 mEq/L (3.5-5.1) 04/04/17 04:52 Chloride 99 mEq/L (98-107) 04/04/17 04:52 Carbon Dioxide 27.8 mEq/L (21.0-31.0) 04/04/17 04:52 Anion Gap 7.8 (7.0-16.0) 04/04/17 04:52 BUN 17 mg/dL (7-25) 04/04/17 04:52 Creatinine 0.4 mg/dL (0.7-1.3) L 04/04/17 04:52 Est GFR ( Amer) > 60.0 ml/min (>90) 04/04/17 04:52 Est GFR (Non-Af Amer) > 60.0 ml/min 04/04/17 04:52 BUN/Creatinine Ratio 42.5 04/04/17 04:52 Glucose 115 mg/dL (70-105) H 04/04/17 04:52 POC Glucose 107 MG/DL (70 - 105) H 04/06/17 11:03 Hemoglobin A1c % 6.0 % (4.0-6.0) 03/20/17 07:35 Whole Bld Lactic Acid 0.53 mmol/L (0.60-1.99) L 03/20/17 07:35 Calcium 9.4 mg/dL (8.6-10.3) 04/04/17 04:52 Magnesium 2.2 mg/dL (1.9-2.7) 04/03/17 04:40 Total Bilirubin 0.3 mg/dL (0.3-1.0) 03/24/17 06:00 AST 12 U/L (13-39) L 03/24/17 06:00 ALT 9 U/L (7-52) 03/24/17 06:00 Alkaline Phosphatase 44 U/L (34-104) 03/24/17 06:00 Total Protein 6.7 gm/dL (6.0-8.3) 03/24/17 06:00 Albumin 3.2 gm/dL (4.2-5.5) L 03/24/17 06:00 Globulin 3.5 gm/dL 03/24/17 06:00 Albumin/Globulin Ratio 0.9 (1.0-1.8) L 03/24/17 06:00 Urine Source AMBRIZ PORT 03/31/17 17:28 Urine Color YELLOW 03/31/17 17:28 Urine Clarity CLOUDY (CLEAR) 03/31/17 17:28 Urine pH 7.0 03/31/17 17:28 Ur Specific [place] 1.015 (1.005-1.030) 03/31/17 17:28 Urine Protein 100 mg/dL (NEGATIVE) H 03/31/17 17:28 Urine Glucose (UA) NEGATIVE mg/dL (NEGATIVE) 03/31/17 17:28 Urine Ketones 15 mg/dL (NEGATIVE) H 03/31/17 17:28 Urine Blood NEGATIVE (NEGATIVE) 03/31/17 17:28 Urine Nitrate NEGATIVE (NEGATIVE) 03/31/17 17:28 Urine Bilirubin NEGATIVE (NEGATIVE) 03/31/17 17:28 Urine Urobilinogen 4.0 E.U./dL (0.2 - 1.0) H 03/31/17 17:28 Ur Leukocyte Esterase MODERATE (NEGATIVE) H 03/31/17 17:28 Urine RBC 0-2 /hpf (0-5) H 03/31/17 17:28 Urine WBC >100 /hpf (0-5) H 03/31/17 17:28 Ur Epithelial Cells FEW /lpf (FEW) 03/31/17 17:28 Triple Phos Crystals MODERATE /hpf (FEW) 03/20/17 18:50 Amorphous Sediment MODERATE URATES (NONE SEEN) 03/31/17 17:28 Urine Bacteria MODERATE /hpf (NONE SEEN) 03/31/17 17:28 Hyaline Casts 0-2 /lpf (0-2) H 03/31/17 17:28 Vancomycin Trough 18.2 ug/mL (10-20) 03/25/17 05:00 - Physical Exam Vitals and I&O: Vital Signs Temp 97.6 F 04/06/17 12:00 Pulse 83 04/06/17 12:00 Resp 20 04/06/17 12:00 BP 105/70 04/06/17 12:00 Pulse Ox 96 04/06/17 12:00 Intake & Output 04/05/17 04/06/17 04/06/17 18:59 06:59 18:59 Intake Total 100 200 Balance 100 200 Intake: Intake, IV Amount 100 200 Meropenem 1 gm In Sodium 100 200 Chloride 0.9% 100 ml @ 100 mls/hr IV Q12HR [facility] Rx#:[id number] Other: Stool Characteristics Soft Soft Active Medications: Current Medications Acetaminophen (Tylenol 650mg/20.3ml Suspension) 650 mg GT Q4HR PRN PRN Reason: Pain Or Fever >99.9 Stop: 05/18/17 21:32 Last Admin: 03/27/17 01:09 Dose: 650 mg Albuterol Sulfate (Albuterol 2.5mg/3ml Neb Ud) 2.5 mg HHN Q4H PRN PRN Reason: Shortness of Breath Last Admin: 03/24/17 15:38 Dose: 2.5 mg Ascorbic Acid (Vitamin C) 500 mg GT DAILY [facility] Stop: 05/19/17 08:59 Last Admin: 04/06/17 08:28 Dose: Not Given Bisacodyl (Dulcolax 10 Mg Supp) 10 mg RC Q96H PRN PRN Reason: Constipation Stop: 05/18/17 21:32 Dextrose (Glutose 40%) 15 gm PO PRN PRN PRN Reason: hypoglycemia Stop: 05/19/17 11:22 Fluconazole (Diflucan) 100 mg PO DAILY [facility] Stop: 04/14/17 10:46 Last Admin: 04/06/17 08:28 Dose: Not Given Glucagon (Glucagen) 1 mg IM PRN PRN PRN Reason: hypoglycemia Stop: 05/19/17 11:22 Heparin Sodium (Porcine) (Heparin) 5,000 units SUBQ Q12HR [facility] Stop: 04/11/17 20:59 Last Admin: 04/06/17 08:28 Dose: 5,000 units Meropenem 1 gm/ Sodium (Chloride) 100 mls @ 100 mls/hr IV Q12HR [facility] Stop: 05/24/17 09:59 Last Infusion: 04/06/17 09:28 Dose: Infused Insulin Aspart (Novolog Insulin Sliding Scale) 0 units SUBQ Q6HR [facility] PRN Reason: Protocol Stop: 05/19/17 00:00 Last Admin: 04/06/17 11:34 Dose: Not Given Lactulose (Cephulac) 30 gm PO BID [facility] Stop: 05/19/17 16:59 Last Admin: 04/06/17 08:30 Dose: Not Given Magnesium Hydroxide (Milk Of Magnesia) 30 ml GT Q72HR PRN PRN Reason: Constipation Stop: 05/18/17 21:32 Miscellaneous (Vte Chemical Prophylaxis Screen/ Admission) 1 ea MC PRN PRN PRN Reason: PROTOCOL Stop: 05/19/17 10:29 Oxcarbazepine (Trileptal) 300 mg GT BID [facility] PRN Reason: Protocol Stop: 05/19/17 08:59 Last Admin: 04/06/17 08:29 Dose: Not Given Oxybutynin Chloride (Ditropan) 5 mg GT TID [facility] Stop: 05/18/17 21:32 Last Admin: 04/06/17 13:10 Dose: Not Given Senna (Senna) 8.6 mg GT BID [facility] Stop: 05/19/17 08:59 Last Admin: 04/06/17 08:30 Dose: Not Given Sodium Phosphate (Fleet Enema) 135 ml RC Q96H PRN PRN Reason: Constipation Stop: 05/19/17 11:22 General: no acute distress, well developed, well nourished HEENT: atraumatic, normocephalic, PERRLA, EOMI, moist mucous membrane Neck: supple, no thyromegaly Cardiovascular: S1S2, regular Lungs: clear to auscultation bilaterally, clear to percussion Abdomen: soft, other (suprapubic cath(PEG)), no tender Extremities: no cyanosis, no clubbing, no edema Neurological: awake Skin: intact - Procedures Procedures: Procedures Procedure Code Date CHANGE DRAINAGE DEVICE IN BLADDER, EXTERNAL APPROACH [id number] 03/19/17 NUBIA SUBQ TISSUE 20 SQ CM/< 13602 06/21/13 INJECT ANTIBIOTIC 99.21 11/07/12 INSERT TEMP BLADDER CATH [id number] 03/19/17 NONEXCIS DEBRID OF WOUND, INFECT, OR BURN 86.28 06/21/13 REPLACE INDWELLING CATH 57.95 11/07/12 Infectious Disease Assmt/Plan - Problem List Patient Problems: All Active Problems FEVER WITH ABNORMAL LABS AND WBC (Acute) Decubitus ulcer (Active) L89.90 Fever (Active) R50.9 Urine screening abnormal (Active) - Assessment Assessment: 1. UTI. 2/2 infected suprapubic Ambriz. 2. fecal impaction. 3. Seizure disorder. 4. Mental retardation. 5. Suprapubic catheter, infected and malfunctioning. It has been changed. 6. Dysphagia, and G tube placement. 7. Malfunctioning Suprapubic Catheter. catheter was changed with G tube. 8. Candiduria. Recommendations: Continue meropenem for 14 days, meropenem can be changed to invanz 1 gm IV daily for 14 days from now. Continue diflucan po for 10 days. DC planning. Nutritional Asmnt/Malnutr-PDOC - Dietary Evaluation Malnutrition Findings (Please click <Entered> for more info): Nutritional Asmnt/Malnutrition Start: 03/21/17 16: 15 Text: Status: Complete Freq: Document 03/21/17 16:18 GSUN (Rec: 03/21/17 16:25 [email or web address] [email or web address]) Nutritional Asmnt/Malnutrition Patient General Information Nutritional Screening High Risk Screening Diagnosis Fevere r/o sepsis, possible UTI vs intraabdominal infection, fecal impactio Pertinent Medical Hx/Surgical Hx Severe mental retardation, cerebral palsy, seizure disorder, dysphagia with PEG, femur frature, suprapubic cath placement, stage IV decubitus ulcer Subjective Information 36 year old male from SNF. KUB: severely distended stool-filled colon and rectum. Visited pt with RN at bedside . Pt made eye contact with RD, non-verbal, no significant wasting noted. Obsered tube feeding off at this time. RN stated pt had 1 BM overnight, continues to have fever, abdomen distended but soft. Pt tolerating tube feeding well per RN notes and assessments. Current Diet Order/ Nutrition Support Diabetisource at 80ml/hr x 16hrs/day Pertinent Medications Vitamin C, Dulcolax, Glutose 40%, Glucagen, Novolog, MOM, Senna, Nacl 0.9%, Fleet Enema Pertinent Labs 03/20: A1c 6 03/21: glucose 150H Nutritional Hx/Data Height 1.55 m Height (Calculated Centimeters) 154.9 Current Weight (lbs) 56.699 kg Weight (Calculated Kilograms) 56.7 Weight (Calculated Grams) 43769.0 [place] Body Weight 112 Weight Status Approriate GI Symptoms GI Symptoms Constipation Usual diet at home [facility] SNF: Glucerna at 80ml/hr x 16hrs/day Skin Integrity/Comment: Rolando Valdivia. 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 Problem Problem Difficulty swallowing related to Etiology dysphagia severe mental retardation aeb Signs/Symptoms: PEG dependent Intervention/Recommendation Comments 1. Continue with SNF order Diabetisource 80ml/hr x 16hrs/ day, providing 1536kcal and 77g protein, meeting nutritional needs. Expected Outcomes/Goals Expected Outcomes/Goals 1. Pt continue to meet 100% of estimated nutritional needs on tube feeding with tolerance .
--- NOTE | 2017-04-06 15:34 | General Progress Note ---
Subjective - Review of Systems Service Date: 04/06/17 Subjective: Alert, affordable, nonverbal Objective - Results Result Diagrams: 04/04/17 04:52 04/04/17 04:52 Recent Labs: Laboratory Last Values WBC 5.1 Th/cmm (4.8-10.8) D 04/04/17 04:52 RBC 4.35 Mil/cmm (4.30-5.70) 04/04/17 04:52 Hgb 12.6 gm/dL (13.2-17.3) L 04/04/17 04:52 Hct 38.2 % (39.0-49.0) L 04/04/17 04:52 MCV 87.8 fl (80-99) 04/04/17 04:52 MCH 28.9 pg (26.0-30.0) 04/04/17 04:52 MCHC Differential 32.9 pg (28.0-36.0) 04/04/17 04:52 RDW 13.6 % (11.5-20.0) 04/04/17 04:52 Plt Count 233 Th/cmm (150-400) 04/04/17 04:52 MPV 9.2 fl 04/04/17 04:52 Neutrophils % 58.8 % (40.0-80.0) 04/04/17 04:52 Band Neutrophils % 2 % (0-10) 04/03/17 04:40 Lymphocytes % 28.0 % (20.0-50.0) 04/04/17 04:52 Monocytes % 7.3 % (2.0-10.0) 04/04/17 04:52 Eosinophils % 5.9 % (0.0-5.0) H 04/04/17 04:52 Basophils % 0.0 % (0.0-2.0) 04/04/17 04:52 Neutrophils (Manual) 75 % (40-80) 04/03/17 04:40 Lymphocytes 15 % (20-50) L 04/03/17 04:40 Monocytes 8 % (2-10) 04/03/17 04:40 Platelet Estimate ADEQUATE (NORMAL) 04/03/17 04:40 PT 9.6 SECONDS (9.5-11.5) 04/02/17 04:35 INR 0.92 (0.5-1.4) 04/02/17 04:35 PTT (Actin FS) 25.6 SECONDS (26.0-38.0) L 04/02/17 04:35 Sodium 131 mEq/L (136-145) L 04/04/17 04:52 Potassium 3.6 mEq/L (3.5-5.1) 04/04/17 04:52 Chloride 99 mEq/L (98-107) 04/04/17 04:52 Carbon Dioxide 27.8 mEq/L (21.0-31.0) 04/04/17 04:52 Anion Gap 7.8 (7.0-16.0) 04/04/17 04:52 BUN 17 mg/dL (7-25) 04/04/17 04:52 Creatinine 0.4 mg/dL (0.7-1.3) L 04/04/17 04:52 Est GFR ( Amer) > 60.0 ml/min (>90) 04/04/17 04:52 Est GFR (Non-Af Amer) > 60.0 ml/min 04/04/17 04:52 BUN/Creatinine Ratio 42.5 04/04/17 04:52 Glucose 115 mg/dL (70-105) H 04/04/17 04:52 POC Glucose 107 MG/DL (70 - 105) H 04/06/17 11:03 Hemoglobin A1c % 6.0 % (4.0-6.0) 03/20/17 07:35 Whole Bld Lactic Acid 0.53 mmol/L (0.60-1.99) L 03/20/17 07:35 Calcium 9.4 mg/dL (8.6-10.3) 04/04/17 04:52 Magnesium 2.2 mg/dL (1.9-2.7) 04/03/17 04:40 Total Bilirubin 0.3 mg/dL (0.3-1.0) 03/24/17 06:00 AST 12 U/L (13-39) L 03/24/17 06:00 ALT 9 U/L (7-52) 03/24/17 06:00 Alkaline Phosphatase 44 U/L (34-104) 03/24/17 06:00 Total Protein 6.7 gm/dL (6.0-8.3) 03/24/17 06:00 Albumin 3.2 gm/dL (4.2-5.5) L 03/24/17 06:00 Globulin 3.5 gm/dL 03/24/17 06:00 Albumin/Globulin Ratio 0.9 (1.0-1.8) L 03/24/17 06:00 Urine Source AMBRIZ PORT 03/31/17 17:28 Urine Color YELLOW 03/31/17 17:28 Urine Clarity CLOUDY (CLEAR) 03/31/17 17:28 Urine pH 7.0 03/31/17 17:28 Ur Specific [place] 1.015 (1.005-1.030) 03/31/17 17:28 Urine Protein 100 mg/dL (NEGATIVE) H 03/31/17 17:28 Urine Glucose (UA) NEGATIVE mg/dL (NEGATIVE) 03/31/17 17:28 Urine Ketones 15 mg/dL (NEGATIVE) H 03/31/17 17:28 Urine Blood NEGATIVE (NEGATIVE) 03/31/17 17:28 Urine Nitrate NEGATIVE (NEGATIVE) 03/31/17 17:28 Urine Bilirubin NEGATIVE (NEGATIVE) 03/31/17 17:28 Urine Urobilinogen 4.0 E.U./dL (0.2 - 1.0) H 03/31/17 17:28 Ur Leukocyte Esterase MODERATE (NEGATIVE) H 03/31/17 17:28 Urine RBC 0-2 /hpf (0-5) H 03/31/17 17:28 Urine WBC >100 /hpf (0-5) H 03/31/17 17:28 Ur Epithelial Cells FEW /lpf (FEW) 03/31/17 17:28 Triple Phos Crystals MODERATE /hpf (FEW) 03/20/17 18:50 Amorphous Sediment MODERATE URATES (NONE SEEN) 03/31/17 17:28 Urine Bacteria MODERATE /hpf (NONE SEEN) 03/31/17 17:28 Hyaline Casts 0-2 /lpf (0-2) H 03/31/17 17:28 Vancomycin Trough 18.2 ug/mL (10-20) 03/25/17 05:00 - Physical Exam Vitals and I&O: Vital Signs Temp 97.6 F 04/06/17 12:00 Pulse 83 04/06/17 12:00 Resp 20 04/06/17 12:00 BP 105/70 04/06/17 12:00 Pulse Ox 96 04/06/17 12:00 Intake & Output 04/05/17 04/06/17 04/06/17 18:59 06:59 18:59 Intake Total 100 200 Balance 100 200 Intake: Intake, IV Amount 100 200 Meropenem 1 gm In Sodium 100 200 Chloride 0.9% 100 ml @ 100 mls/hr IV Q12HR [facility] Rx#:[id number] Other: Stool Characteristics Soft Soft Active Medications: Current Medications Acetaminophen (Tylenol 650mg/20.3ml Suspension) 650 mg GT Q4HR PRN PRN Reason: Pain Or Fever >99.9 Stop: 05/18/17 21:32 Last Admin: 03/27/17 01:09 Dose: 650 mg Albuterol Sulfate (Albuterol 2.5mg/3ml Neb Ud) 2.5 mg HHN Q4H PRN PRN Reason: Shortness of Breath Last Admin: 03/24/17 15:38 Dose: 2.5 mg Ascorbic Acid (Vitamin C) 500 mg GT DAILY [facility] Stop: 05/19/17 08:59 Last Admin: 04/06/17 08:28 Dose: Not Given Bisacodyl (Dulcolax 10 Mg Supp) 10 mg RC Q96H PRN PRN Reason: Constipation Stop: 05/18/17 21:32 Dextrose (Glutose 40%) 15 gm PO PRN PRN PRN Reason: hypoglycemia Stop: 05/19/17 11:22 Fluconazole (Diflucan) 100 mg PO DAILY [facility] Stop: 04/14/17 10:46 Last Admin: 04/06/17 08:28 Dose: Not Given Glucagon (Glucagen) 1 mg IM PRN PRN PRN Reason: hypoglycemia Stop: 05/19/17 11:22 Heparin Sodium (Porcine) (Heparin) 5,000 units SUBQ Q12HR [facility] Stop: 04/11/17 20:59 Last Admin: 04/06/17 08:28 Dose: 5,000 units Meropenem 1 gm/ Sodium (Chloride) 100 mls @ 100 mls/hr IV Q12HR [facility] Stop: 05/24/17 09:59 Last Infusion: 04/06/17 09:28 Dose: Infused Insulin Aspart (Novolog Insulin Sliding Scale) 0 units SUBQ Q6HR [facility] PRN Reason: Protocol Stop: 05/19/17 00:00 Last Admin: 04/06/17 11:34 Dose: Not Given Lactulose (Cephulac) 30 gm PO BID [facility] Stop: 05/19/17 16:59 Last Admin: 04/06/17 08:30 Dose: Not Given Magnesium Hydroxide (Milk Of Magnesia) 30 ml GT Q72HR PRN PRN Reason: Constipation Stop: 05/18/17 21:32 Miscellaneous (Vte Chemical Prophylaxis Screen/ Admission) 1 ea [facility] PRN PRN PRN Reason: PROTOCOL Stop: 05/19/17 10:29 Oxcarbazepine (Trileptal) 300 mg GT BID [facility] PRN Reason: Protocol Stop: 05/19/17 08:59 Last Admin: 04/06/17 08:29 Dose: Not Given Oxybutynin Chloride (Ditropan) 5 mg GT TID [facility] Stop: 05/18/17 21:32 Last Admin: 04/06/17 13:10 Dose: Not Given Senna (Senna) 8.6 mg GT BID [facility] Stop: 05/19/17 08:59 Last Admin: 04/06/17 08:30 Dose: Not Given Sodium Phosphate (Fleet Enema) 135 ml RC Q96H PRN PRN Reason: Constipation Stop: 05/19/17 11:22 General: Alert, No acute distress, Other (Confused, non verbal) HEENT: Atraumatic, EOMI, Mucous membr. moist/pink Neck: Supple, +2 carotid pulse wo bruit Cardiovascular: Regular rate, Normal S1, Normal S2 Lungs: Clear to auscultation Abdomen: Bowel sounds, Soft Extremities: Other (No edema), no Edema Neurological: Normal tone, Sensation intact, Other (Non ambulatory) Skin: Other (Warm and dry), no Rash Psych/Mental Status: Mood NL, Other (Confused) - Procedures Procedures: Procedures Procedure Code Date CHANGE DRAINAGE DEVICE IN BLADDER, EXTERNAL APPROACH [id number] 03/19/17 NUBIA SUBQ TISSUE 20 SQ CM/< 06911 06/21/13 INJECT ANTIBIOTIC 99.21 11/07/12 INSERT TEMP BLADDER CATH 03277 03/19/17 NONEXCIS DEBRID OF WOUND, INFECT, OR BURN 86.28 06/21/13 REPLACE INDWELLING CATH 57.95 11/07/12 Assessment/Plan - Problem List Patient Problems: All Active Problems FEVER WITH ABNORMAL LABS AND WBC (Acute) Decubitus ulcer (Active) L89.90 Fever (Active) R50.9 Urine screening abnormal (Active) - Assessment Assessment: P. stuartii complicated UTI Epilepsy Neurogenic bladder status post suprapubic tube Hyponatremia Functional quadriplegia - Plan Plan: Lab - Result Diagrams 04/04/17 04:52 04/04/17 04:52 Current Medications Acetaminophen (Tylenol 650mg/20.3ml Suspension) 650 mg GT Q4HR PRN PRN Reason: Pain Or Fever >99.9 Stop: 05/18/17 21:32 Last Admin: 03/27/17 01:09 Dose: 650 mg Albuterol Sulfate (Albuterol 2.5mg/3ml Neb Ud) 2.5 mg HHN Q4H PRN PRN Reason: Shortness of Breath Last Admin: 03/24/17 15:38 Dose: 2.5 mg Ascorbic Acid (Vitamin C) 500 mg GT DAILY [facility] Stop: 05/19/17 08:59 Last Admin: 04/05/17 09:08 Dose: 500 mg Bisacodyl (Dulcolax 10 Mg Supp) 10 mg RC Q96H PRN PRN Reason: Constipation Stop: 05/18/17 21:32 Dextrose (Glutose 40%) 15 gm PO PRN PRN PRN Reason: hypoglycemia Stop: 05/19/17 11:22 Fluconazole (Diflucan) 100 mg PO DAILY [facility] Stop: 04/14/17 10:46 Last Admin: 04/05/17 14:11 Dose: 100 mg Glucagon (Glucagen) 1 mg IM PRN PRN PRN Reason: hypoglycemia Stop: 05/19/17 11:22 Heparin Sodium (Porcine) (Heparin) 5,000 units SUBQ Q12HR [facility] Stop: 04/11/17 20:59 Last Admin: 04/05/17 09:08 Dose: 5,000 units Meropenem 1 gm/ Sodium (Chloride) 100 mls @ 100 mls/hr IV Q12HR [facility] Stop: 05/24/17 09:59 Last Infusion: 04/05/17 13:52 Dose: Infused Insulin Aspart (Novolog Insulin Sliding Scale) 0 units SUBQ Q6HR [facility] PRN Reason: Protocol Stop: 05/19/17 00:00 Last Admin: 04/05/17 12:23 Dose: 2 units Lactulose (Cephulac) 30 gm PO BID [facility] Stop: 05/19/17 16:59 Last Admin: 04/05/17 09:08 Dose: 30 gm Magnesium Hydroxide (Milk Of Magnesia) 30 ml GT Q72HR PRN PRN Reason: Constipation Stop: 05/18/17 21:32 Miscellaneous (Vte Chemical Prophylaxis Screen/ Admission) 1 ea [facility] PRN PRN PRN Reason: PROTOCOL Stop: 05/19/17 10:29 Oxcarbazepine (Trileptal) 300 mg GT BID [facility] PRN Reason: Protocol Stop: 05/19/17 08:59 Last Admin: 04/05/17 09:09 Dose: 300 mg Oxybutynin Chloride (Ditropan) 5 mg GT TID [facility] Stop: 05/18/17 21:32 Last Admin: 04/05/17 13:51 Dose: 5 mg Senna (Senna) 8.6 mg GT BID [facility] Stop: 05/19/17 08:59 Last Admin: 04/05/17 09:09 Dose: 8.6 mg Sodium Phosphate (Fleet Enema) 135 ml RC Q96H PRN PRN Reason: Constipation Stop: 05/19/17 11:22 No further leakage from suprapubic tube Discharge planning in progress GT came out but replaced successfully this am Nutritional Asmnt/Malnutr-PDOC - Dietary Evaluation Malnutrition Findings (Please click <Entered> for more info): Nutritional Asmnt/Malnutrition Start: 03/21/17 16: 15 Text: Status: Complete Freq: Document 03/21/17 16:18 GSUN (Rec: 03/21/17 16:25 [email or web address] Nutritional Asmnt/Malnutrition Patient General Information Nutritional Screening High Risk Screening Diagnosis Fevere r/o sepsis, possible UTI vs intraabdominal infection, fecal impactio Pertinent Medical Hx/Surgical Hx Severe mental retardation, cerebral palsy, seizure disorder, dysphagia with PEG, femur frature, suprapubic cath placement, stage IV decubitus ulcer Subjective Information 36 year old male from SNF. KUB: severely distended stool-filled colon and rectum. Visited pt with RN at bedside . Pt made eye contact with RD, non-verbal, no significant wasting noted. Obsered tube feeding off at this time. RN stated pt had 1 BM overnight, continues to have fever, abdomen distended but soft. Pt tolerating tube feeding well per RN notes and assessments. Current Diet Order/ Nutrition Support Diabetisource at 80ml/hr x 16hrs/day Pertinent Medications Vitamin C, Dulcolax, Glutose 40%, Glucagen, Novolog, MOM, Senna, Nacl 0.9%, Fleet Enema Pertinent Labs 03/20: A1c 6 03/21: glucose 150H Nutritional Hx/Data Height 1.55 m Height (Calculated Centimeters) 154.9 Current Weight (lbs) 56.699 kg Weight (Calculated Kilograms) 56.7 Weight (Calculated Grams) 71529.0 [place] Body Weight 112 Weight Status Approriate GI Symptoms GI Symptoms Constipation Usual diet at home [facility] SNF: Glucerna at 80ml/hr x 16hrs/day Skin Integrity/Comment: Rolando 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 Problem Problem Difficulty swallowing related to Etiology dysphagia severe mental retardation aeb Signs/Symptoms: PEG dependent Intervention/Recommendation Comments 1. Continue with SNF order Diabetisource 80ml/hr x 16hrs/ day, providing 1536kcal and 77g protein, meeting nutritional needs. Expected Outcomes/Goals Expected Outcomes/Goals 1. Pt continue to meet 100% of estimated nutritional needs on tube feeding with tolerance .
[2017-04-07] MEDS: INSULIN ASPART SLIDING SCALE 100 UNITS/ML UNIT SUBQ SCH ×3 (02:46→12:59)
[2017-04-07 05:57] LABS: % BASOPHILS 0.3 % (0.0-2.0); % EOSINOPHILS 3.3 % (0.0-5.0); % LYMPHOCYTES 30.6 % (20.0-50.0); % MONOCYTES 11.6 % (2.0-10.0); % NEUTROPHILS 54.2 % (40.0-80.0); HEMATOCRIT 38.6 % (39.0-49.0); HEMOGLOBIN 12.8 gm/dL (13.2-17.3); MEAN CELL VOLUME 88.1 fl (80-99); MEAN CORPUSCULAR HEMOGLOBIN 29.1 pg (26.0-30.0); MEAN CORPUSCULAR HGB CONC 33.1 pg (28.0-36.0); MEAN PLATELET VOLUME 9.3 fl; NEUTROPHILE ABSOLUTE 2.3 Th/cmm (1.8-8.0); PLATELET COUNT 209 Th/cmm (150-400); RED BLOOD COUNT 4.38 Mil/cmm (4.30-5.70); RED CELL DISTRIBUTION WIDTH 13.6 % (11.5-20.0); WHITE BLOOD COUNT 4.2 Th/cmm (4.8-10.8)
[2017-04-07 06:08] LABS: ALB/GLOB RATIO 1.1 (1.0-1.8); ALKALINE PHOSPHATASE 50 U/L (34-104); ANION GAP 6.1 (7.0-16.0); BILIRUBIN,TOTAL 0.3 mg/dL (0.3-1.0); BUN - UREA NITROGEN 21 mg/dL (7-25); BUN/CREATININE RATIO 52.5; CALCIUM SERUM 9.5 mg/dL (8.6-10.3); CARBON DIOXIDE 28.6 mEq/L (21.0-31.0); CHLORIDE 105 mEq/L (98-107); CREATININE - SERUM 0.4 mg/dL (0.7-1.3); GLUCOSE 137 mg/dL (70-105); POTASSIUM SERUM 3.7 mEq/L (3.5-5.1); SGOT 12 U/L (13-39); SGPT/ALT 11 U/L (7-52); SODIUM SERUM 136 mEq/L (136-145)
[2017-04-07] MEDS: Meropenem 1 GM in Sodium Chloride 0.9% 100 ML IV SCH ×2 (09:53→21:52)
[2017-04-07] MEDS: Lactulose 10 Gm/15 mL 30mL UDC PO SCH ×2 (09:53→16:57)
[2017-04-07] MEDS: Ascorbic Acid 500 mg/5 mL UDC GT SCH (10:03)
--- NOTE | 2017-04-07 12:56 | Infectious Disease Prog Note ---
Infectious Disease Subjective - Review of Systems Service Date: 04/07/17 Subjective: No new change. Infectious Disease Objective - Results Result Diagrams: 04/07/17 05:34 04/07/17 05:34 Recent Labs: Laboratory Last Values WBC 4.2 Th/cmm (4.8-10.8) L 04/07/17 05:34 RBC 4.38 Mil/cmm (4.30-5.70) 04/07/17 05:34 Hgb 12.8 gm/dL (13.2-17.3) L 04/07/17 05:34 Hct 38.6 % (39.0-49.0) L 04/07/17 05:34 MCV 88.1 fl (80-99) 04/07/17 05:34 MCH 29.1 pg (26.0-30.0) 04/07/17 05:34 MCHC Differential 33.1 pg (28.0-36.0) 04/07/17 05:34 RDW 13.6 % (11.5-20.0) 04/07/17 05:34 Plt Count 209 Th/cmm (150-400) 04/07/17 05:34 MPV 9.3 fl 04/07/17 05:34 Neutrophils % 54.2 % (40.0-80.0) 04/07/17 05:34 Band Neutrophils % 2 % (0-10) 04/03/17 04:40 Lymphocytes % 30.6 % (20.0-50.0) 04/07/17 05:34 Monocytes % 11.6 % (2.0-10.0) H 04/07/17 05:34 Eosinophils % 3.3 % (0.0-5.0) 04/07/17 05:34 Basophils % 0.3 % (0.0-2.0) 04/07/17 05:34 Neutrophils (Manual) 75 % (40-80) 04/03/17 04:40 Lymphocytes 15 % (20-50) L 04/03/17 04:40 Monocytes 8 % (2-10) 04/03/17 04:40 Platelet Estimate ADEQUATE (NORMAL) 04/03/17 04:40 PT 9.6 SECONDS (9.5-11.5) 04/02/17 04:35 INR 0.92 (0.5-1.4) 04/02/17 04:35 PTT (Actin FS) 25.6 SECONDS (26.0-38.0) L 04/02/17 04:35 Sodium 136 mEq/L (136-145) 04/07/17 05:34 Potassium 3.7 mEq/L (3.5-5.1) 04/07/17 05:34 Chloride 105 mEq/L (98-107) 04/07/17 05:34 Carbon Dioxide 28.6 mEq/L (21.0-31.0) 04/07/17 05:34 Anion Gap 6.1 (7.0-16.0) L 04/07/17 05:34 BUN 21 mg/dL (7-25) 04/07/17 05:34 Creatinine 0.4 mg/dL (0.7-1.3) L 04/07/17 05:34 Est GFR ( Amer) > 60.0 ml/min (>90) 04/07/17 05:34 Est GFR (Non-Af Amer) > 60.0 ml/min 04/07/17 05:34 BUN/Creatinine Ratio 52.5 04/07/17 05:34 Glucose 137 mg/dL (70-105) H 04/07/17 05:34 POC Glucose 120 MG/DL (70 - 105) H 04/07/17 12:12 Hemoglobin A1c % 6.0 % (4.0-6.0) 03/20/17 07:35 Whole Bld Lactic Acid 0.53 mmol/L (0.60-1.99) L 03/20/17 07:35 Calcium 9.5 mg/dL (8.6-10.3) 04/07/17 05:34 Magnesium 2.2 mg/dL (1.9-2.7) 04/03/17 04:40 Total Bilirubin 0.3 mg/dL (0.3-1.0) 04/07/17 05:34 AST 12 U/L (13-39) L 04/07/17 05:34 ALT 11 U/L (7-52) 04/07/17 05:34 Alkaline Phosphatase 50 U/L (34-104) 04/07/17 05:34 Total Protein 7.2 gm/dL (6.0-8.3) 04/07/17 05:34 Albumin 3.8 gm/dL (4.2-5.5) L 04/07/17 05:34 Globulin 3.4 gm/dL 04/07/17 05:34 Albumin/Globulin Ratio 1.1 (1.0-1.8) 04/07/17 05:34 Urine Source AMBRIZ PORT 03/31/17 17:28 Urine Color YELLOW 03/31/17 17:28 Urine Clarity CLOUDY (CLEAR) 03/31/17 17:28 Urine pH 7.0 03/31/17 17:28 Ur Specific [place] 1.015 (1.005-1.030) 03/31/17 17:28 Urine Protein 100 mg/dL (NEGATIVE) H 03/31/17 17:28 Urine Glucose (UA) NEGATIVE mg/dL (NEGATIVE) 03/31/17 17:28 Urine Ketones 15 mg/dL (NEGATIVE) H 03/31/17 17:28 Urine Blood NEGATIVE (NEGATIVE) 03/31/17 17:28 Urine Nitrate NEGATIVE (NEGATIVE) 03/31/17 17:28 Urine Bilirubin NEGATIVE (NEGATIVE) 03/31/17 17:28 Urine Urobilinogen 4.0 E.U./dL (0.2 - 1.0) H 03/31/17 17:28 Ur Leukocyte Esterase MODERATE (NEGATIVE) H 03/31/17 17:28 Urine RBC 0-2 /hpf (0-5) H 03/31/17 17:28 Urine WBC >100 /hpf (0-5) H 03/31/17 17:28 Ur Epithelial Cells FEW /lpf (FEW) 03/31/17 17:28 Triple Phos Crystals MODERATE /hpf (FEW) 03/20/17 18:50 Amorphous Sediment MODERATE URATES (NONE SEEN) 03/31/17 17:28 Urine Bacteria MODERATE /hpf (NONE SEEN) 03/31/17 17:28 Hyaline Casts 0-2 /lpf (0-2) H 03/31/17 17:28 Vancomycin Trough 18.2 ug/mL (10-20) 03/25/17 05:00 - Physical Exam Vitals and I&O: Vital Signs Temp 98.6 F 04/07/17 03:55 Pulse 93 04/07/17 07:15 Resp 14 04/07/17 07:15 BP 114/68 04/07/17 03:55 Pulse Ox 95 04/07/17 07:15 Intake & Output 04/06/17 04/07/17 04/07/17 18:59 06:59 18:59 Intake Total 200 100 Output Total 300 Balance 200 -200 Weight (lbs) 54.522 kg Intake: Intake, IV Amount 200 100 Meropenem 1 gm In Sodium 200 100 Chloride 0.9% 100 ml @ 100 mls/hr IV Q12HR [facility] Rx#:[id number] Output: Other 300 Other: Stool Characteristics Soft Active Medications: Current Medications Acetaminophen (Tylenol 650mg/20.3ml Suspension) 650 mg GT Q4HR PRN PRN Reason: Pain Or Fever >99.9 Stop: 05/18/17 21:32 Last Admin: 04/07/17 02:46 Dose: 650 mg Albuterol Sulfate (Albuterol 2.5mg/3ml Neb Ud) 2.5 mg HHN Q4H PRN PRN Reason: Shortness of Breath Last Admin: 03/24/17 15:38 Dose: 2.5 mg Ascorbic Acid (Vitamin C) 500 mg GT DAILY [facility] Stop: 05/19/17 08:59 Last Admin: 04/07/17 10:03 Dose: 500 mg Bisacodyl (Dulcolax 10 Mg Supp) 10 mg RC Q96H PRN PRN Reason: Constipation Stop: 05/18/17 21:32 Dextrose (Glutose 40%) 15 gm PO PRN PRN PRN Reason: hypoglycemia Stop: 05/19/17 11:22 Fluconazole (Diflucan) 100 mg PO DAILY [facility] Stop: 04/14/17 10:46 Last Admin: 04/07/17 09:54 Dose: 100 mg Glucagon (Glucagen) 1 mg IM PRN PRN PRN Reason: hypoglycemia Stop: 05/19/17 11:22 Heparin Sodium (Porcine) (Heparin) 5,000 units SUBQ Q12HR [facility] Stop: 04/11/17 20:59 Last Admin: 04/07/17 09:54 Dose: 5,000 units Meropenem 1 gm/ Sodium (Chloride) 100 mls @ 100 mls/hr IV Q12HR [facility] Stop: 05/24/17 09:59 Last Admin: 04/07/17 09:53 Dose: 100 mls/hr Insulin Aspart (Novolog Insulin Sliding Scale) 0 units SUBQ Q6HR [facility] PRN Reason: Protocol Stop: 05/19/17 00:00 Last Admin: 04/07/17 06:53 Dose: Not Given Lactulose (Cephulac) 30 gm PO BID [facility] Stop: 05/19/17 16:59 Last Admin: 04/07/17 09:53 Dose: 30 gm Magnesium Hydroxide (Milk Of Magnesia) 30 ml GT Q72HR PRN PRN Reason: Constipation Stop: 05/18/17 21:32 Miscellaneous (Vte Chemical Prophylaxis Screen/ Admission) 1 ea [facility] PRN PRN PRN Reason: PROTOCOL Stop: 05/19/17 10:29 Oxcarbazepine (Trileptal) 300 mg GT BID [facility] PRN Reason: Protocol Stop: 05/19/17 08:59 Last Admin: 04/07/17 10:03 Dose: 300 mg Oxybutynin Chloride (Ditropan) 5 mg GT TID [facility] Stop: 05/18/17 21:32 Last Admin: 04/07/17 09:54 Dose: 5 mg Senna (Senna) 8.6 mg GT BID [facility] Stop: 05/19/17 08:59 Last Admin: 04/07/17 09:54 Dose: 8.6 mg Sodium Phosphate (Fleet Enema) 135 ml RC Q96H PRN PRN Reason: Constipation Stop: 05/19/17 11:22 General: no acute distress, well developed, well nourished HEENT: atraumatic, normocephalic, PERRLA, EOMI Neck: supple, no thyromegaly Cardiovascular: S1S2, regular Lungs: clear to auscultation bilaterally, clear to percussion Abdomen: soft, other (suprapubic catheter), no tender, no distended Extremities: no cyanosis, no clubbing, no edema Neurological: awake, alert Skin: intact - Procedures Procedures: Procedures Procedure Code Date CHANGE DRAINAGE DEVICE IN BLADDER, EXTERNAL APPROACH [id number] 03/19/17 NUBIA SUBQ TISSUE 20 SQ CM/< 04574 06/21/13 INJECT ANTIBIOTIC 99.21 11/07/12 INSERT TEMP BLADDER CATH [id number] 03/19/17 NONEXCIS DEBRID OF WOUND, INFECT, OR BURN 86.28 06/21/13 REPLACE INDWELLING CATH 57.95 11/07/12 Infectious Disease Assmt/Plan - Problem List Patient Problems: All Active Problems FEVER WITH ABNORMAL LABS AND WBC (Acute) Decubitus ulcer (Active) L89.90 Fever (Active) R50.9 Urine screening abnormal (Active) - Assessment Assessment: 1. UTI. 2/2 infected suprapubic Ambriz. 2. fecal impaction. 3. Seizure disorder. 4. Mental retardation. 5. Suprapubic catheter, infected and malfunctioning. It has been changed. 6. Dysphagia, and G tube placement. 7. Malfunctioning Suprapubic Catheter. catheter was changed with G tube. 8. Candiduria. Recommendations: Continue meropenem for 14 days Meropenem can be changed to invanz 1 gm IV daily for 14 days total. Continue diflucan po for 10 days. DC planning. Nutritional Asmnt/Malnutr-PDOC - Dietary Evaluation Malnutrition Findings (Please click <Entered> for more info): Nutritional Asmnt/Malnutrition Start: 03/21/17 16: 15 Text: Status: Complete Freq: Document 03/21/17 16:18 GSUN (Rec: 03/21/17 16:25 GSUN [email or web address]) Nutritional Asmnt/Malnutrition Patient General Information Nutritional Screening High Risk Screening Diagnosis Fevere r/o sepsis, possible UTI vs intraabdominal infection, fecal impactio Pertinent Medical Hx/Surgical Hx Severe mental retardation, cerebral palsy, seizure disorder, dysphagia with PEG, femur frature, suprapubic cath placement, stage IV decubitus ulcer Subjective Information 36 year old male from SNF. KUB: severely distended stool-filled colon and rectum. Visited pt with RN at bedside . Pt made eye contact with RD, non-verbal, no significant wasting noted. Obsered tube feeding off at this time. RN stated pt had 1 BM overnight, continues to have fever, abdomen distended but soft. Pt tolerating tube feeding well per RN notes and assessments. Current Diet Order/ Nutrition Support Diabetisource at 80ml/hr x 16hrs/day Pertinent Medications Vitamin C, Dulcolax, Glutose 40%, Glucagen, Novolog, MOM, Senna, Nacl 0.9%, Fleet Enema Pertinent Labs 03/20: A1c 6 03/21: glucose 150H Nutritional Hx/Data Height 1.55 m Height (Calculated Centimeters) 154.9 Current Weight (lbs) 56.699 kg Weight (Calculated Kilograms) 56.7 Weight (Calculated Grams) 69884.0 [place] Body Weight 112 Weight Status Approriate GI Symptoms GI Symptoms Constipation Usual diet at home [facility] SNF: Glucerna at 80ml/hr x 16hrs/day Skin Integrity/Comment: Rolando Valdivia. 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 Problem Problem Difficulty swallowing related to Etiology dysphagia severe mental retardation aeb Signs/Symptoms: PEG dependent Intervention/Recommendation Comments 1. Continue with SNF order Diabetisource 80ml/hr x 16hrs/ day, providing 1536kcal and 77g protein, meeting nutritional needs. Expected Outcomes/Goals Expected Outcomes/Goals 1. Pt continue to meet 100% of estimated nutritional needs on tube feeding with tolerance .
--- NOTE | 2017-04-07 13:34 | Diagnostic Imaging Report ---
Exam: G-tube placement. HISTORY check G-tube position exam. The KUB of the abdomen reviewed, the study demonstrates distention of colon with large amount of fecal impaction the right colon. Proximal distended small bowel loops with air appreciated. Upon injection of 90 cc of Gastroview in the gastrostomy tube there is normal opacification of the stomach with progression of contrast material in small bowel. IMPRESSION: Gastrostomy tube in stomach. Fecal impaction with proximal distention of the small and large bowel loops.
[2017-04-08] MEDS: INSULIN ASPART SLIDING SCALE 100 UNITS/ML UNIT SUBQ SCH ×4 (00:38→18:33)
[2017-04-08] MEDS: Ascorbic Acid 500 mg/5 mL UDC GT SCH (09:52)
[2017-04-08] MEDS: Lactulose 10 Gm/15 mL 30mL UDC PO SCH ×2 (09:52→16:20)
--- NOTE | 2017-04-08 11:07 | Infectious Disease Prog Note ---
Infectious Disease Subjective - Review of Systems Service Date: 04/08/17 Subjective: No new change. Infectious Disease Objective - Results Result Diagrams: 04/07/17 05:34 04/07/17 05:34 Recent Labs: Laboratory Last Values WBC 4.2 Th/cmm (4.8-10.8) L 04/07/17 05:34 RBC 4.38 Mil/cmm (4.30-5.70) 04/07/17 05:34 Hgb 12.8 gm/dL (13.2-17.3) L 04/07/17 05:34 Hct 38.6 % (39.0-49.0) L 04/07/17 05:34 MCV 88.1 fl (80-99) 04/07/17 05:34 MCH 29.1 pg (26.0-30.0) 04/07/17 05:34 MCHC Differential 33.1 pg (28.0-36.0) 04/07/17 05:34 RDW 13.6 % (11.5-20.0) 04/07/17 05:34 Plt Count 209 Th/cmm (150-400) 04/07/17 05:34 MPV 9.3 fl 04/07/17 05:34 Neutrophils % 54.2 % (40.0-80.0) 04/07/17 05:34 Band Neutrophils % 2 % (0-10) 04/03/17 04:40 Lymphocytes % 30.6 % (20.0-50.0) 04/07/17 05:34 Monocytes % 11.6 % (2.0-10.0) H 04/07/17 05:34 Eosinophils % 3.3 % (0.0-5.0) 04/07/17 05:34 Basophils % 0.3 % (0.0-2.0) 04/07/17 05:34 Neutrophils (Manual) 75 % (40-80) 04/03/17 04:40 Lymphocytes 15 % (20-50) L 04/03/17 04:40 Monocytes 8 % (2-10) 04/03/17 04:40 Platelet Estimate ADEQUATE (NORMAL) 04/03/17 04:40 PT 9.6 SECONDS (9.5-11.5) 04/02/17 04:35 INR 0.92 (0.5-1.4) 04/02/17 04:35 PTT (Actin FS) 25.6 SECONDS (26.0-38.0) L 04/02/17 04:35 Sodium 136 mEq/L (136-145) 04/07/17 05:34 Potassium 3.7 mEq/L (3.5-5.1) 04/07/17 05:34 Chloride 105 mEq/L (98-107) 04/07/17 05:34 Carbon Dioxide 28.6 mEq/L (21.0-31.0) 04/07/17 05:34 Anion Gap 6.1 (7.0-16.0) L 04/07/17 05:34 BUN 21 mg/dL (7-25) 04/07/17 05:34 Creatinine 0.4 mg/dL (0.7-1.3) L 04/07/17 05:34 Est GFR ( Amer) > 60.0 ml/min (>90) 04/07/17 05:34 Est GFR (Non-Af Amer) > 60.0 ml/min 04/07/17 05:34 BUN/Creatinine Ratio 52.5 04/07/17 05:34 Glucose 137 mg/dL (70-105) H 04/07/17 05:34 POC Glucose 117 MG/DL (70 - 105) H 04/08/17 05:52 Hemoglobin A1c % 6.0 % (4.0-6.0) 03/20/17 07:35 Whole Bld Lactic Acid 0.53 mmol/L (0.60-1.99) L 03/20/17 07:35 Calcium 9.5 mg/dL (8.6-10.3) 04/07/17 05:34 Magnesium 2.2 mg/dL (1.9-2.7) 04/03/17 04:40 Total Bilirubin 0.3 mg/dL (0.3-1.0) 04/07/17 05:34 AST 12 U/L (13-39) L 04/07/17 05:34 ALT 11 U/L (7-52) 04/07/17 05:34 Alkaline Phosphatase 50 U/L (34-104) 04/07/17 05:34 Total Protein 7.2 gm/dL (6.0-8.3) 04/07/17 05:34 Albumin 3.8 gm/dL (4.2-5.5) L 04/07/17 05:34 Globulin 3.4 gm/dL 04/07/17 05:34 Albumin/Globulin Ratio 1.1 (1.0-1.8) 04/07/17 05:34 Urine Source AMBRIZ [place] 03/31/17 17:28 Urine Color YELLOW 03/31/17 17:28 Urine Clarity CLOUDY (CLEAR) 03/31/17 17:28 Urine pH 7.0 03/31/17 17:28 Ur Specific [place] 1.015 (1.005-1.030) 03/31/17 17:28 Urine Protein 100 mg/dL (NEGATIVE) H 03/31/17 17:28 Urine Glucose (UA) NEGATIVE mg/dL (NEGATIVE) 03/31/17 17:28 Urine Ketones 15 mg/dL (NEGATIVE) H 03/31/17 17:28 Urine Blood NEGATIVE (NEGATIVE) 03/31/17 17:28 Urine Nitrate NEGATIVE (NEGATIVE) 03/31/17 17:28 Urine Bilirubin NEGATIVE (NEGATIVE) 03/31/17 17:28 Urine Urobilinogen 4.0 E.U./dL (0.2 - 1.0) H 03/31/17 17:28 Ur Leukocyte Esterase MODERATE (NEGATIVE) H 03/31/17 17:28 Urine RBC 0-2 /hpf (0-5) H 03/31/17 17:28 Urine WBC >100 /hpf (0-5) H 03/31/17 17:28 Ur Epithelial Cells FEW /lpf (FEW) 03/31/17 17:28 Triple Phos Crystals MODERATE /hpf (FEW) 03/20/17 18:50 Amorphous Sediment MODERATE URATES (NONE SEEN) 03/31/17 17:28 Urine Bacteria MODERATE /hpf (NONE SEEN) 03/31/17 17:28 Hyaline Casts 0-2 /lpf (0-2) H 03/31/17 17:28 Vancomycin Trough 18.2 ug/mL (10-20) 03/25/17 05:00 - Physical Exam Vitals and I&O: Vital Signs Temp 98.4 F 04/08/17 07:58 Pulse 72 04/08/17 07:58 Resp 18 04/08/17 10:05 BP 104/65 04/08/17 07:58 Pulse Ox 95 04/08/17 07:58 Intake & Output 04/07/17 04/08/17 04/08/17 18:59 06:59 18:59 Intake Total 100 400 Output Total 150 Balance 100 250 Weight (lbs) 54.522 kg Intake: Intake, IV Amount 100 Meropenem 1 gm In Sodium 100 Chloride 0.9% 100 ml @ 100 mls/hr IV Q12HR [facility] Rx#:[id number] Tube Feeding 400 Output: Urine 150 Other: Stool Characteristics Liquid Brown Active Medications: Current Medications Acetaminophen (Tylenol 650mg/20.3ml Suspension) 650 mg GT Q4HR PRN PRN Reason: Pain Or Fever >99.9 Stop: 05/18/17 21:32 Last Admin: 04/07/17 02:46 Dose: 650 mg Albuterol Sulfate (Albuterol 2.5mg/3ml Neb Ud) 2.5 mg HHN Q4H PRN PRN Reason: Shortness of Breath Last Admin: 03/24/17 15:38 Dose: 2.5 mg Ascorbic Acid (Vitamin C) 500 mg GT DAILY [facility] Stop: 05/19/17 08:59 Last Admin: 04/08/17 09:52 Dose: 500 mg Bisacodyl (Dulcolax 10 Mg Supp) 10 mg RC Q96H PRN PRN Reason: Constipation Stop: 05/18/17 21:32 Dextrose (Glutose 40%) 15 gm PO PRN PRN PRN Reason: hypoglycemia Stop: 05/19/17 11:22 Fluconazole (Diflucan) 100 mg PO DAILY [facility] Stop: 04/14/17 10:46 Last Admin: 04/08/17 09:52 Dose: 100 mg Glucagon (Glucagen) 1 mg IM PRN PRN PRN Reason: hypoglycemia Stop: 05/19/17 11:22 Heparin Sodium (Porcine) (Heparin) 5,000 units SUBQ Q12HR [facility] Stop: 04/11/17 20:59 Last Admin: 04/08/17 09:52 Dose: 5,000 units Meropenem 1 gm/ Sodium (Chloride) 100 mls @ 100 mls/hr IV Q12HR [facility] Stop: 05/24/17 09:59 Last Admin: 04/07/17 21:52 Dose: 100 mls/hr Insulin Aspart (Novolog Insulin Sliding Scale) 0 units SUBQ Q6HR [facility] PRN Reason: Protocol Stop: 05/19/17 00:00 Last Admin: 04/08/17 06:08 Dose: Not Given Lactulose (Cephulac) 30 gm PO BID [facility] Stop: 05/19/17 16:59 Last Admin: 04/08/17 09:52 Dose: 30 gm Magnesium Hydroxide (Milk Of Magnesia) 30 ml GT Q72HR PRN PRN Reason: Constipation Stop: 05/18/17 21:32 Miscellaneous (Vte Chemical Prophylaxis Screen/ Admission) 1 ea [facility] PRN PRN PRN Reason: PROTOCOL Stop: 05/19/17 10:29 Oxcarbazepine (Trileptal) 300 mg GT BID [facility] PRN Reason: Protocol Stop: 05/19/17 08:59 Last Admin: 04/08/17 09:52 Dose: 300 mg Oxybutynin Chloride (Ditropan) 5 mg GT TID [facility] Stop: 05/18/17 21:32 Last Admin: 04/08/17 09:53 Dose: 5 mg Senna (Senna) 8.6 mg GT BID [facility] Stop: 05/19/17 08:59 Last Admin: 04/08/17 09:53 Dose: 8.6 mg Sodium Phosphate (Fleet Enema) 135 ml RC Q96H PRN PRN Reason: Constipation Stop: 05/19/17 11:22 General: no acute distress, well nourished HEENT: atraumatic, EOMI Neck: supple, no thyromegaly, no lymphadenopathy Cardiovascular: S1S2, regular, no irregular, no systolic murmur, no thrills, no gallops Lungs: clear to auscultation bilaterally, clear to percussion Abdomen: soft, other (supra pubic ), no tender, no distended Extremities: no cyanosis, no clubbing, no edema Neurological: awake, alert, oriented Skin: intact - Procedures Procedures: Procedures Procedure Code Date CHANGE DRAINAGE DEVICE IN BLADDER, EXTERNAL APPROACH [id number] 03/19/17 NUBIA SUBQ TISSUE 20 SQ CM/< 88869 06/21/13 INJECT ANTIBIOTIC 99.21 11/07/12 INSERT TEMP BLADDER CATH 18642 03/19/17 NONEXCIS DEBRID OF WOUND, INFECT, OR BURN 86.28 06/21/13 REPLACE INDWELLING CATH 57.95 11/07/12 Infectious Disease Assmt/Plan - Problem List Patient Problems: All Active Problems FEVER WITH ABNORMAL LABS AND WBC (Acute) Decubitus ulcer (Active) L89.90 Fever (Active) R50.9 Urine screening abnormal (Active) - Assessment Assessment: 1. UTI. 2/2 infected suprapubic Ambriz. 2. fecal impaction. 3. Seizure disorder. 4. Mental retardation. 5. Suprapubic catheter, infected and malfunctioning. It has been changed. 6. Dysphagia, and G tube placement. 7. Malfunctioning Suprapubic Catheter. catheter was changed with G tube. 8. Candiduria. Recommendations: Continue meropenem for 14 days Meropenem can be changed to invanz 1 gm IV daily for 14 days total. Continue diflucan po for 10 days. DC planning. Nutritional Asmnt/Malnutr-PDOC - Dietary Evaluation Malnutrition Findings (Please click <Entered> for more info): Nutritional Asmnt/Malnutrition Start: 03/21/17 16: 15 Text: Status: Complete Freq: Document 03/21/17 16:18 GSUN (Rec: 03/21/17 16:25 GSUN [email or web address]) Nutritional Asmnt/Malnutrition Patient General Information Nutritional Screening High Risk Screening Diagnosis Fevere r/o sepsis, possible UTI vs intraabdominal infection, fecal impactio Pertinent Medical Hx/Surgical Hx Severe mental retardation, cerebral palsy, seizure disorder, dysphagia with PEG, femur frature, suprapubic cath placement, stage IV decubitus ulcer Subjective Information 36 year old male from [facility]. KUB: severely distended stool-filled colon and rectum. Visited pt with RN at bedside . Pt made eye contact with RD, non-verbal, no significant wasting noted. Obsered tube feeding off at this time. RN stated pt had 1 BM overnight, continues to have fever, abdomen distended but soft. Pt tolerating tube feeding well per RN notes and assessments. 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 Problem Problem Difficulty swallowing related to Etiology dysphagia severe mental retardation aeb Signs/Symptoms: PEG dependent Intervention/Recommendation Comments 1. Continue with SNF order Diabetisource 80ml/hr x 16hrs/ day, providing 1536kcal and 77g protein, meeting nutritional needs. Expected Outcomes/Goals Expected Outcomes/Goals 1. Pt continue to meet 100% of estimated nutritional needs on tube feeding with tolerance .
[2017-04-08] MEDS: Meropenem 1 GM in Sodium Chloride 0.9% 100 ML IV SCH ×2 (11:18→21:17)
[2017-04-09] MEDS: INSULIN ASPART SLIDING SCALE 100 UNITS/ML UNIT SUBQ SCH ×4 (02:01→18:49)
[2017-04-09] MEDS: Lactulose 10 Gm/15 mL 30mL UDC PO SCH ×2 (08:33→17:03)
[2017-04-09] MEDS: Ascorbic Acid 500 mg/5 mL UDC GT SCH (08:33)
[2017-04-09] MEDS: Meropenem 1 GM in Sodium Chloride 0.9% 100 ML IV SCH ×2 (11:10→20:24)
--- NOTE | 2017-04-09 16:40 | Infectious Disease Prog Note ---
Infectious Disease Subjective - Review of Systems Service Date: 04/09/17 Subjective: No new change. Infectious Disease Objective - Results Result Diagrams: 04/07/17 05:34 04/07/17 05:34 Recent Labs: Laboratory Last Values WBC 4.2 Th/cmm (4.8-10.8) L 04/07/17 05:34 RBC 4.38 Mil/cmm (4.30-5.70) 04/07/17 05:34 Hgb 12.8 gm/dL (13.2-17.3) L 04/07/17 05:34 Hct 38.6 % (39.0-49.0) L 04/07/17 05:34 MCV 88.1 fl (80-99) 04/07/17 05:34 MCH 29.1 pg (26.0-30.0) 04/07/17 05:34 MCHC Differential 33.1 pg (28.0-36.0) 04/07/17 05:34 RDW 13.6 % (11.5-20.0) 04/07/17 05:34 Plt Count 209 Th/cmm (150-400) 04/07/17 05:34 MPV 9.3 fl 04/07/17 05:34 Neutrophils % 54.2 % (40.0-80.0) 04/07/17 05:34 Band Neutrophils % 2 % (0-10) 04/03/17 04:40 Lymphocytes % 30.6 % (20.0-50.0) 04/07/17 05:34 Monocytes % 11.6 % (2.0-10.0) H 04/07/17 05:34 Eosinophils % 3.3 % (0.0-5.0) 04/07/17 05:34 Basophils % 0.3 % (0.0-2.0) 04/07/17 05:34 Neutrophils (Manual) 75 % (40-80) 04/03/17 04:40 Lymphocytes 15 % (20-50) L 04/03/17 04:40 Monocytes 8 % (2-10) 04/03/17 04:40 Platelet Estimate ADEQUATE (NORMAL) 04/03/17 04:40 PT 9.6 SECONDS (9.5-11.5) 04/02/17 04:35 INR 0.92 (0.5-1.4) 04/02/17 04:35 PTT (Actin FS) 25.6 SECONDS (26.0-38.0) L 04/02/17 04:35 Sodium 136 mEq/L (136-145) 04/07/17 05:34 Potassium 3.7 mEq/L (3.5-5.1) 04/07/17 05:34 Chloride 105 mEq/L (98-107) 04/07/17 05:34 Carbon Dioxide 28.6 mEq/L (21.0-31.0) 04/07/17 05:34 Anion Gap 6.1 (7.0-16.0) L 04/07/17 05:34 BUN 21 mg/dL (7-25) 04/07/17 05:34 Creatinine 0.4 mg/dL (0.7-1.3) L 04/07/17 05:34 Est GFR ( Amer) > 60.0 ml/min (>90) 04/07/17 05:34 Est GFR (Non-Af Amer) > 60.0 ml/min 04/07/17 05:34 BUN/Creatinine Ratio 52.5 04/07/17 05:34 Glucose 137 mg/dL (70-105) H 04/07/17 05:34 POC Glucose 124 MG/DL (70 - 105) H 04/09/17 12:02 Hemoglobin A1c % 6.0 % (4.0-6.0) 03/20/17 07:35 Whole Bld Lactic Acid 0.53 mmol/L (0.60-1.99) L 03/20/17 07:35 Calcium 9.5 mg/dL (8.6-10.3) 04/07/17 05:34 Magnesium 2.2 mg/dL (1.9-2.7) 04/03/17 04:40 Total Bilirubin 0.3 mg/dL (0.3-1.0) 04/07/17 05:34 AST 12 U/L (13-39) L 04/07/17 05:34 ALT 11 U/L (7-52) 04/07/17 05:34 Alkaline Phosphatase 50 U/L (34-104) 04/07/17 05:34 Total Protein 7.2 gm/dL (6.0-8.3) 04/07/17 05:34 Albumin 3.8 gm/dL (4.2-5.5) L 04/07/17 05:34 Globulin 3.4 gm/dL 04/07/17 05:34 Albumin/Globulin Ratio 1.1 (1.0-1.8) 04/07/17 05:34 Urine Source [place] 03/31/17 17:28 Urine Color YELLOW 03/31/17 17:28 Urine Clarity CLOUDY (CLEAR) 03/31/17 17:28 Urine pH 7.0 03/31/17 17:28 Ur Specific [place] 1.015 (1.005-1.030) 03/31/17 17:28 Urine Protein 100 mg/dL (NEGATIVE) H 03/31/17 17:28 Urine Glucose (UA) NEGATIVE mg/dL (NEGATIVE) 03/31/17 17:28 Urine Ketones 15 mg/dL (NEGATIVE) H 03/31/17 17:28 Urine Blood NEGATIVE (NEGATIVE) 03/31/17 17:28 Urine Nitrate NEGATIVE (NEGATIVE) 03/31/17 17:28 Urine Bilirubin NEGATIVE (NEGATIVE) 03/31/17 17:28 Urine Urobilinogen 4.0 E.U./dL (0.2 - 1.0) H 03/31/17 17:28 Ur Leukocyte Esterase MODERATE (NEGATIVE) H 03/31/17 17:28 Urine RBC 0-2 /hpf (0-5) H 03/31/17 17:28 Urine WBC >100 /hpf (0-5) H 03/31/17 17:28 Ur Epithelial Cells FEW /lpf (FEW) 03/31/17 17:28 Triple Phos Crystals MODERATE /hpf (FEW) 03/20/17 18:50 Amorphous Sediment MODERATE URATES (NONE SEEN) 03/31/17 17:28 Urine Bacteria MODERATE /hpf (NONE SEEN) 03/31/17 17:28 Hyaline Casts 0-2 /lpf (0-2) H 03/31/17 17:28 Vancomycin Trough 18.2 ug/mL (10-20) 03/25/17 05:00 - Physical Exam Vitals and I&O: Vital Signs Temp 97.4 F 04/09/17 12:00 Pulse 60 04/09/17 12:00 Resp 18 04/09/17 12:00 BP 92/50 04/09/17 12:00 Pulse Ox 96 04/09/17 12:00 Intake & Output 04/08/17 04/09/17 04/09/17 18:59 06:59 18:59 Intake Total 1350 Output Total 650 Balance 700 Weight (lbs) 56.245 kg 56.245 kg 56.245 kg Intake: Intake, IV Amount 100 Meropenem 1 gm In Sodium 100 Chloride 0.9% 100 ml @ 100 mls/hr IV Q12HR [facility] Rx#:[id number] TPN/PPN 800 Other 450 Output: Urine 650 Other: # Bowel Movements 3 Stool Characteristics Liquid Liquid Liquid Brown Brown Brown Active Medications: Current Medications Acetaminophen (Tylenol 650mg/20.3ml Suspension) 650 mg GT Q4HR PRN PRN Reason: Pain Or Fever >99.9 Stop: 05/18/17 21:32 Last Admin: 04/07/17 02:46 Dose: 650 mg Albuterol Sulfate (Albuterol 2.5mg/3ml Neb Ud) 2.5 mg HHN Q4H PRN PRN Reason: Shortness of Breath Last Admin: 03/24/17 15:38 Dose: 2.5 mg Ascorbic Acid (Vitamin C) 500 mg GT DAILY [facility] Stop: 05/19/17 08:59 Last Admin: 04/09/17 08:33 Dose: 500 mg Bisacodyl (Dulcolax 10 Mg Supp) 10 mg RC Q96H PRN PRN Reason: Constipation Stop: 05/18/17 21:32 Dextrose (Glutose 40%) 15 gm PO PRN PRN PRN Reason: hypoglycemia Stop: 05/19/17 11:22 Fluconazole (Diflucan) 100 mg PO DAILY [facility] Stop: 04/14/17 10:46 Last Admin: 04/09/17 08:33 Dose: 100 mg Glucagon (Glucagen) 1 mg IM PRN PRN PRN Reason: hypoglycemia Stop: 05/19/17 11:22 Heparin Sodium (Porcine) (Heparin) 5,000 units SUBQ Q12HR [facility] Stop: 04/11/17 20:59 Last Admin: 04/09/17 08:33 Dose: 5,000 units Meropenem 1 gm/ Sodium (Chloride) 100 mls @ 100 mls/hr IV Q12HR [facility] Stop: 06/08/17 10:59 Last Admin: 04/09/17 11:10 Dose: 100 mls/hr Insulin Aspart (Novolog Insulin Sliding Scale) 0 units SUBQ Q6HR [facility] PRN Reason: Protocol Stop: 05/19/17 00:00 Last Admin: 04/09/17 12:00 Dose: Not Given Lactulose (Cephulac) 30 gm PO BID [facility] Stop: 05/19/17 16:59 Last Admin: 04/09/17 08:33 Dose: Not Given Magnesium Hydroxide (Milk Of Magnesia) 30 ml GT Q72HR PRN PRN Reason: Constipation Stop: 05/18/17 21:32 Miscellaneous (Vte Chemical Prophylaxis Screen/ Admission) 1 ea [facility] PRN PRN PRN Reason: PROTOCOL Stop: 05/19/17 10:29 Oxcarbazepine (Trileptal) 300 mg GT BID [facility] PRN Reason: Protocol Stop: 05/19/17 08:59 Last Admin: 04/09/17 08:33 Dose: 300 mg Oxybutynin Chloride (Ditropan) 5 mg GT TID [facility] Stop: 05/18/17 21:32 Last Admin: 04/09/17 15:36 Dose: 5 mg Senna (Senna) 8.6 mg GT BID [facility] Stop: 05/19/17 08:59 Last Admin: 04/09/17 08:34 Dose: Not Given Sodium Phosphate (Fleet Enema) 135 ml RC Q96H PRN PRN Reason: Constipation Stop: 05/19/17 11:22 General: no acute distress, well developed, well nourished HEENT: atraumatic, normocephalic, PERRLA, EOMI Neck: supple, no thyromegaly, no lymphadenopathy Cardiovascular: S1S2, regular Lungs: no clear to auscultation bilaterally, no clear to percussion Abdomen: soft, other (supra pubic cath (peg)), no tender Extremities: no cyanosis, no clubbing, no edema Neurological: awake, alert Skin: intact - Procedures Procedures: Procedures Procedure Code Date CHANGE DRAINAGE DEVICE IN BLADDER, EXTERNAL APPROACH [id number] 03/19/17 NUBIA SUBQ TISSUE 20 SQ CM/< 45874 06/21/13 INJECT ANTIBIOTIC 99.21 11/07/12 INSERT TEMP BLADDER CATH [id number] 03/19/17 NONEXCIS DEBRID OF WOUND, INFECT, OR BURN 86.28 06/21/13 REPLACE INDWELLING CATH 57.95 11/07/12 Infectious Disease Assmt/Plan - Problem List Patient Problems: All Active Problems FEVER WITH ABNORMAL LABS AND WBC (Acute) Decubitus ulcer (Active) L89.90 Fever (Active) R50.9 Urine screening abnormal (Active) - Assessment Assessment: 1. UTI. 2/2 infected suprapubic Ambriz. 2. fecal impaction. 3. Seizure disorder. 4. Mental retardation. 5. Suprapubic catheter, infected and malfunctioning. It has been changed. 6. Dysphagia, and G tube placement. 7. Malfunctioning Suprapubic Catheter. catheter was changed with G tube. 8. Candiduria. Recommendations: Continue meropenem for 14 days Meropenem can be changed to invanz 1 gm IV daily for 14 days total. Continue diflucan po for 10 days. patient needs follow up or transfer to higher level of care for appropriate placement of suprapubic catheter. dw case management. DC planning. no new change. Nutritional Asmnt/Malnutr-PDOC - Dietary Evaluation Malnutrition Findings (Please click <Entered> for more info): Nutritional Asmnt/Malnutrition Start: 03/21/17 16: 15 Text: Status: Complete Freq: Document 03/21/17 16:18 GSUN (Rec: 03/21/17 16:25 [email or web address] Nutritional Asmnt/Malnutrition Patient General Information Nutritional Screening High Risk Screening Diagnosis Fevere r/o sepsis, possible UTI vs intraabdominal infection, fecal impactio Pertinent Medical Hx/Surgical Hx Severe mental retardation, cerebral palsy, seizure disorder, dysphagia with PEG, femur frature, suprapubic cath placement, stage IV decubitus ulcer Subjective Information 36 year old male from SNF. KUB: severely distended stool-filled colon and rectum. Visited pt with RN at bedside . Pt made eye contact with RD, non-verbal, no significant wasting noted. Obsered tube feeding off at this time. RN stated pt had 1 BM overnight, continues to have fever, abdomen distended but soft. Pt tolerating tube feeding well per RN notes and assessments. 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 Problem Problem Difficulty swallowing related to Etiology dysphagia severe mental retardation aeb Signs/Symptoms: PEG dependent Intervention/Recommendation Comments 1. Continue with SNF order Diabetisource 80ml/hr x 16hrs/ day, providing 1536kcal and 77g protein, meeting nutritional needs. Expected Outcomes/Goals Expected Outcomes/Goals 1. Pt continue to meet 100% of estimated nutritional needs on tube feeding with tolerance .
[2017-04-10] MEDS: INSULIN ASPART SLIDING SCALE 100 UNITS/ML UNIT SUBQ SCH ×4 (06:42→20:02)
[2017-04-10] MEDS: Meropenem 1 GM in Sodium Chloride 0.9% 100 ML IV SCH ×2 (08:59→21:01)
[2017-04-10] MEDS: Lactulose 10 Gm/15 mL 30mL UDC PO SCH ×2 (09:32→17:27)
[2017-04-10] MEDS: Ascorbic Acid 500 mg/5 mL UDC GT SCH (09:32)
--- NOTE | 2017-04-10 10:55 | Infectious Disease Prog Note ---
Infectious Disease Subjective - Review of Systems Service Date: 04/10/17 Subjective: No new change. patient has developed some diarrhea. Infectious Disease Objective - Results Result Diagrams: 04/07/17 05:34 04/07/17 05:34 Recent Labs: Laboratory Last Values WBC 4.2 Th/cmm (4.8-10.8) L 04/07/17 05:34 RBC 4.38 Mil/cmm (4.30-5.70) 04/07/17 05:34 Hgb 12.8 gm/dL (13.2-17.3) L 04/07/17 05:34 Hct 38.6 % (39.0-49.0) L 04/07/17 05:34 MCV 88.1 fl (80-99) 04/07/17 05:34 MCH 29.1 pg (26.0-30.0) 04/07/17 05:34 MCHC Differential 33.1 pg (28.0-36.0) 04/07/17 05:34 RDW 13.6 % (11.5-20.0) 04/07/17 05:34 Plt Count 209 Th/cmm (150-400) 04/07/17 05:34 MPV 9.3 fl 04/07/17 05:34 Neutrophils % 54.2 % (40.0-80.0) 04/07/17 05:34 Band Neutrophils % 2 % (0-10) 04/03/17 04:40 Lymphocytes % 30.6 % (20.0-50.0) 04/07/17 05:34 Monocytes % 11.6 % (2.0-10.0) H 04/07/17 05:34 Eosinophils % 3.3 % (0.0-5.0) 04/07/17 05:34 Basophils % 0.3 % (0.0-2.0) 04/07/17 05:34 Neutrophils (Manual) 75 % (40-80) 04/03/17 04:40 Lymphocytes 15 % (20-50) L 04/03/17 04:40 Monocytes 8 % (2-10) 04/03/17 04:40 Platelet Estimate ADEQUATE (NORMAL) 04/03/17 04:40 PT 9.6 SECONDS (9.5-11.5) 04/02/17 04:35 INR 0.92 (0.5-1.4) 04/02/17 04:35 PTT (Actin FS) 25.6 SECONDS (26.0-38.0) L 04/02/17 04:35 Sodium 136 mEq/L (136-145) 04/07/17 05:34 Potassium 3.7 mEq/L (3.5-5.1) 04/07/17 05:34 Chloride 105 mEq/L (98-107) 04/07/17 05:34 Carbon Dioxide 28.6 mEq/L (21.0-31.0) 04/07/17 05:34 Anion Gap 6.1 (7.0-16.0) L 04/07/17 05:34 BUN 21 mg/dL (7-25) 04/07/17 05:34 Creatinine 0.4 mg/dL (0.7-1.3) L 04/07/17 05:34 Est GFR ( Amer) > 60.0 ml/min (>90) 04/07/17 05:34 Est GFR (Non-Af Amer) > 60.0 ml/min 04/07/17 05:34 BUN/Creatinine Ratio 52.5 04/07/17 05:34 Glucose 137 mg/dL (70-105) H 04/07/17 05:34 POC Glucose 120 MG/DL (70 - 105) H 04/10/17 05:33 Hemoglobin A1c % 6.0 % (4.0-6.0) 03/20/17 07:35 Whole Bld Lactic Acid 0.53 mmol/L (0.60-1.99) L 03/20/17 07:35 Calcium 9.5 mg/dL (8.6-10.3) 04/07/17 05:34 Magnesium 2.2 mg/dL (1.9-2.7) 04/03/17 04:40 Total Bilirubin 0.3 mg/dL (0.3-1.0) 04/07/17 05:34 AST 12 U/L (13-39) L 04/07/17 05:34 ALT 11 U/L (7-52) 04/07/17 05:34 Alkaline Phosphatase 50 U/L (34-104) 04/07/17 05:34 Total Protein 7.2 gm/dL (6.0-8.3) 04/07/17 05:34 Albumin 3.8 gm/dL (4.2-5.5) L 04/07/17 05:34 Globulin 3.4 gm/dL 04/07/17 05:34 Albumin/Globulin Ratio 1.1 (1.0-1.8) 04/07/17 05:34 Urine Source AMBRIZ [place] 03/31/17 17:28 Urine Color YELLOW 03/31/17 17:28 Urine Clarity CLOUDY (CLEAR) 03/31/17 17:28 Urine pH 7.0 03/31/17 17:28 Ur Specific [place] 1.015 (1.005-1.030) 03/31/17 17:28 Urine Protein 100 mg/dL (NEGATIVE) H 03/31/17 17:28 Urine Glucose (UA) NEGATIVE mg/dL (NEGATIVE) 03/31/17 17:28 Urine Ketones 15 mg/dL (NEGATIVE) H 03/31/17 17:28 Urine Blood NEGATIVE (NEGATIVE) 03/31/17 17:28 Urine Nitrate NEGATIVE (NEGATIVE) 03/31/17 17:28 Urine Bilirubin NEGATIVE (NEGATIVE) 03/31/17 17:28 Urine Urobilinogen 4.0 E.U./dL (0.2 - 1.0) H 03/31/17 17:28 Ur Leukocyte Esterase MODERATE (NEGATIVE) H 03/31/17 17:28 Urine RBC 0-2 /hpf (0-5) H 03/31/17 17:28 Urine WBC >100 /hpf (0-5) H 03/31/17 17:28 Ur Epithelial Cells FEW /lpf (FEW) 03/31/17 17:28 Triple Phos Crystals MODERATE /hpf (FEW) 03/20/17 18:50 Amorphous Sediment MODERATE URATES (NONE SEEN) 03/31/17 17:28 Urine Bacteria MODERATE /hpf (NONE SEEN) 03/31/17 17:28 Hyaline Casts 0-2 /lpf (0-2) H 03/31/17 17:28 Vancomycin Trough 18.2 ug/mL (10-20) 03/25/17 05:00 - Physical Exam Vitals and I&O: Vital Signs Temp 97.6 F 04/10/17 08:00 Pulse 64 04/10/17 08:00 Resp 17 04/10/17 08:00 BP 90/67 04/10/17 08:00 Pulse Ox 97 04/10/17 04:00 Intake & Output 04/09/17 04/10/17 04/10/17 18:59 06:59 18:59 Intake Total 1350 820 Output Total 700 500 Balance 650 320 Weight (lbs) 56.245 kg 56.245 kg Intake: Intake, IV Amount 100 100 Meropenem 1 gm In Sodium 100 100 Chloride 0.9% 100 ml @ 100 mls/hr IV Q12HR [facility] Rx#:[id number] Tube Feeding 720 TPN/PPN 800 Other 450 Output: Urine 700 500 Other: Stool Characteristics Liquid Liquid Liquid Brown Brown Brown Active Medications: Current Medications Acetaminophen (Tylenol 650mg/20.3ml Suspension) 650 mg GT Q4HR PRN PRN Reason: Pain Or Fever >99.9 Stop: 05/18/17 21:32 Last Admin: 04/07/17 02:46 Dose: 650 mg Albuterol Sulfate (Albuterol 2.5mg/3ml Neb Ud) 2.5 mg HHN Q4H PRN PRN Reason: Shortness of Breath Last Admin: 03/24/17 15:38 Dose: 2.5 mg Ascorbic Acid (Vitamin C) 500 mg GT DAILY [facility] Stop: 05/19/17 08:59 Last Admin: 04/10/17 09:32 Dose: 500 mg Bisacodyl (Dulcolax 10 Mg Supp) 10 mg RC Q96H PRN PRN Reason: Constipation Stop: 05/18/17 21:32 Dextrose (Glutose 40%) 15 gm PO PRN PRN PRN Reason: hypoglycemia Stop: 05/19/17 11:22 Fluconazole (Diflucan) 100 mg PO DAILY [facility] Stop: 04/14/17 10:46 Last Admin: 04/10/17 09:32 Dose: 100 mg Glucagon (Glucagen) 1 mg IM PRN PRN PRN Reason: hypoglycemia Stop: 05/19/17 11:22 Heparin Sodium (Porcine) (Heparin) 5,000 units SUBQ Q12HR [facility] Stop: 04/11/17 20:59 Last Admin: 04/10/17 09:32 Dose: 5,000 units Meropenem 1 gm/ Sodium (Chloride) 100 mls @ 100 mls/hr IV Q12HR [facility] Stop: 06/08/17 10:59 Last Admin: 04/10/17 08:59 Dose: 100 mls/hr Insulin Aspart (Novolog Insulin Sliding Scale) 0 units SUBQ Q6HR [facility] PRN Reason: Protocol Stop: 05/19/17 00:00 Last Admin: 04/10/17 06:42 Dose: Not Given Lactulose (Cephulac) 30 gm PO BID [facility] Stop: 05/19/17 16:59 Last Admin: 04/10/17 09:32 Dose: 30 gm Magnesium Hydroxide (Milk Of Magnesia) 30 ml GT Q72HR PRN PRN Reason: Constipation Stop: 05/18/17 21:32 Miscellaneous (Vte Chemical Prophylaxis Screen/ Admission) 1 ea [facility] PRN PRN PRN Reason: PROTOCOL Stop: 05/19/17 10:29 Oxcarbazepine (Trileptal) 300 mg GT BID [facility] PRN Reason: Protocol Stop: 05/19/17 08:59 Last Admin: 04/10/17 09:32 Dose: 300 mg Oxybutynin Chloride (Ditropan) 5 mg GT TID [facility] Stop: 05/18/17 21:32 Last Admin: 04/10/17 09:32 Dose: 5 mg Senna (Senna) 8.6 mg GT BID [facility] Stop: 05/19/17 08:59 Last Admin: 04/10/17 09:32 Dose: 8.6 mg Sodium Phosphate (Fleet Enema) 135 ml RC Q96H PRN PRN Reason: Constipation Stop: 05/19/17 11:22 General: no acute distress, well developed, well nourished HEENT: atraumatic, normocephalic, PERRLA, EOMI, moist mucous membrane Neck: supple, no thyromegaly Cardiovascular: S1S2, regular Lungs: clear to auscultation bilaterally, clear to percussion Abdomen: soft, no tender, no distended Extremities: no cyanosis, no clubbing, no edema Neurological: awake, alert - Procedures Procedures: Procedures Procedure Code Date CHANGE DRAINAGE DEVICE IN BLADDER, EXTERNAL APPROACH [id number] 03/19/17 NUBIA SUBQ TISSUE 20 SQ CM/< 92356 06/21/13 INJECT ANTIBIOTIC 99.21 11/07/12 INSERT TEMP BLADDER CATH 54003 03/19/17 NONEXCIS DEBRID OF WOUND, INFECT, OR BURN 86.28 06/21/13 REPLACE INDWELLING CATH 57.95 11/07/12 Infectious Disease Assmt/Plan - Problem List Patient Problems: All Active Problems FEVER WITH ABNORMAL LABS AND WBC (Acute) Decubitus ulcer (Active) L89.90 Fever (Active) R50.9 Urine screening abnormal (Active) - Assessment Assessment: 1. UTI. 2/2 infected suprapubic Ambriz. 2. fecal impaction. 3. Seizure disorder. 4. Mental retardation. 5. Suprapubic catheter, infected and malfunctioning. It has been changed. 6. Dysphagia, and G tube placement. 7. Malfunctioning Suprapubic Catheter. catheter was changed with G tube. 8. Candiduria. 9. Diarrhea. Recommendations: Continue meropenem for 14 days Meropenem can be changed to invanz 1 gm IV daily for 14 days total. Continue diflucan po for 10 days. patient needs follow up or transfer to higher level of care for appropriate placement of suprapubic catheter by urologist. dw case management. CBC in the morning. Stool for C. difficile and WBC. DC planning. Nutritional Asmnt/Malnutr-PDOC - Dietary Evaluation Malnutrition Findings (Please click <Entered> for more info): Nutritional Asmnt/Malnutrition Start: 03/21/17 16: 15 Text: Status: Complete Freq: Document 03/21/17 16:18 GSUN (Rec: 03/21/17 16:25 GSUN [email or web address]) Nutritional Asmnt/Malnutrition Patient General Information Nutritional Screening High Risk Screening Diagnosis Fevere r/o sepsis, possible UTI vs intraabdominal infection, fecal impactio Pertinent Medical Hx/Surgical Hx Severe mental retardation, cerebral palsy, seizure disorder, dysphagia with PEG, femur frature, suprapubic cath placement, stage IV decubitus ulcer Subjective Information 36 year old male from SNF. KUB: severely distended stool-filled colon and rectum. Visited pt with RN at bedside . Pt made eye contact with RD, non-verbal, no significant wasting noted. Obsered tube feeding off at this time. RN stated pt had 1 BM overnight, continues to have fever, abdomen distended but soft. Pt tolerating tube feeding well per RN notes and assessments. 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 Problem Problem Difficulty swallowing related to Etiology dysphagia severe mental retardation aeb Signs/Symptoms: PEG dependent Intervention/Recommendation Comments 1. Continue with SNF order Diabetisource 80ml/hr x 16hrs/ day, providing 1536kcal and 77g protein, meeting nutritional needs. Expected Outcomes/Goals Expected Outcomes/Goals 1. Pt continue to meet 100% of estimated nutritional needs on tube feeding with tolerance .
[2017-04-11] MEDS: INSULIN ASPART SLIDING SCALE 100 UNITS/ML UNIT SUBQ SCH ×4 (05:34→17:29)
[2017-04-11 06:06] LABS: % BASOPHILS 0.2 % (0.0-2.0); % EOSINOPHILS 6.4 % (0.0-5.0); % LYMPHOCYTES 23.2 % (20.0-50.0); % MONOCYTES 7.2 % (2.0-10.0); HEMOGLOBIN 12.4 gm/dL (13.2-17.3); MEAN CELL VOLUME 87.8 fl (80-99); MEAN CORPUSCULAR HEMOGLOBIN 29.4 pg (26.0-30.0); MEAN CORPUSCULAR HGB CONC 33.5 pg (28.0-36.0); MEAN PLATELET VOLUME 9.7 fl; NEUTROPHILE ABSOLUTE 3.9 Th/cmm (1.8-8.0); PLATELET COUNT 186 Th/cmm (150-400); RED BLOOD COUNT 4.22 Mil/cmm (4.30-5.70); RED CELL DISTRIBUTION WIDTH 13.4 % (11.5-20.0)
[2017-04-11 06:11] LABS: ANION GAP 6.2 (7.0-16.0); BUN - UREA NITROGEN 15 mg/dL (7-25); BUN/CREATININE RATIO 37.5; CALCIUM SERUM 8.8 mg/dL (8.6-10.3); CARBON DIOXIDE 27.1 mEq/L (21.0-31.0); CHLORIDE 105 mEq/L (98-107); CREATININE - SERUM 0.4 mg/dL (0.7-1.3); GLUCOSE 119 mg/dL (70-105); POTASSIUM SERUM 3.3 mEq/L (3.5-5.1); SODIUM SERUM 135 mEq/L (136-145); WHITE BLOOD COUNT 6.1 Th/cmm (4.8-10.8)
[2017-04-11] MEDS: Meropenem 1 GM in Sodium Chloride 0.9% 100 ML IV SCH ×2 (08:26→20:44)
[2017-04-11] MEDS: Lactulose 10 Gm/15 mL 30mL UDC PO SCH ×2 (08:28→17:21)
[2017-04-11] MEDS: Ascorbic Acid 500 mg/5 mL UDC GT SCH (08:28)
--- NOTE | 2017-04-11 21:38 | Infectious Disease Prog Note ---
Infectious Disease Subjective - Review of Systems Service Date: 04/11/17 Subjective: No new change. patient has developed some diarrhea. Infectious Disease Objective - Results Result Diagrams: 04/11/17 05:39 04/11/17 05:39 Recent Labs: Laboratory Last Values WBC 6.1 Th/cmm (4.8-10.8) D 04/11/17 05:39 RBC 4.22 Mil/cmm (4.30-5.70) L 04/11/17 05:39 Hgb 12.4 gm/dL (13.2-17.3) L 04/11/17 05:39 Hct 37.0 % (39.0-49.0) L 04/11/17 05:39 MCV 87.8 fl (80-99) 04/11/17 05:39 MCH 29.4 pg (26.0-30.0) 04/11/17 05:39 MCHC Differential 33.5 pg (28.0-36.0) 04/11/17 05:39 RDW 13.4 % (11.5-20.0) 04/11/17 05:39 Plt Count 186 Th/cmm (150-400) 04/11/17 05:39 MPV 9.7 fl 04/11/17 05:39 Neutrophils % 63.0 % (40.0-80.0) 04/11/17 05:39 Band Neutrophils % 2 % (0-10) 04/03/17 04:40 Lymphocytes % 23.2 % (20.0-50.0) 04/11/17 05:39 Monocytes % 7.2 % (2.0-10.0) 04/11/17 05:39 Eosinophils % 6.4 % (0.0-5.0) H 04/11/17 05:39 Basophils % 0.2 % (0.0-2.0) 04/11/17 05:39 Neutrophils (Manual) 75 % (40-80) 04/03/17 04:40 Lymphocytes 15 % (20-50) L 04/03/17 04:40 Monocytes 8 % (2-10) 04/03/17 04:40 Platelet Estimate ADEQUATE (NORMAL) 04/03/17 04:40 PT 9.6 SECONDS (9.5-11.5) 04/02/17 04:35 INR 0.92 (0.5-1.4) 04/02/17 04:35 PTT (Actin FS) 25.6 SECONDS (26.0-38.0) L 04/02/17 04:35 Sodium 135 mEq/L (136-145) L 04/11/17 05:39 Potassium 3.3 mEq/L (3.5-5.1) L 04/11/17 05:39 Chloride 105 mEq/L (98-107) 04/11/17 05:39 Carbon Dioxide 27.1 mEq/L (21.0-31.0) 04/11/17 05:39 Anion Gap 6.2 (7.0-16.0) L 04/11/17 05:39 BUN 15 mg/dL (7-25) 04/11/17 05:39 Creatinine 0.4 mg/dL (0.7-1.3) L 04/11/17 05:39 Est GFR ( Amer) > 60.0 ml/min (>90) 04/11/17 05:39 Est GFR (Non-Af Amer) > 60.0 ml/min 04/11/17 05:39 BUN/Creatinine Ratio 37.5 04/11/17 05:39 Glucose 119 mg/dL (70-105) H 04/11/17 05:39 POC Glucose 116 MG/DL (70 - 105) H 04/11/17 11:11 Hemoglobin A1c % 6.0 % (4.0-6.0) 03/20/17 07:35 Whole Bld Lactic Acid 0.53 mmol/L (0.60-1.99) L 03/20/17 07:35 Calcium 8.8 mg/dL (8.6-10.3) 04/11/17 05:39 Magnesium 2.2 mg/dL (1.9-2.7) 04/03/17 04:40 Total Bilirubin 0.3 mg/dL (0.3-1.0) 04/07/17 05:34 AST 12 U/L (13-39) L 04/07/17 05:34 ALT 11 U/L (7-52) 04/07/17 05:34 Alkaline Phosphatase 50 U/L (34-104) 04/07/17 05:34 Total Protein 7.2 gm/dL (6.0-8.3) 04/07/17 05:34 Albumin 3.8 gm/dL (4.2-5.5) L 04/07/17 05:34 Globulin 3.4 gm/dL 04/07/17 05:34 Albumin/Globulin Ratio 1.1 (1.0-1.8) 04/07/17 05:34 Urine Source [place] 03/31/17 17:28 Urine Color YELLOW 03/31/17 17:28 Urine Clarity CLOUDY (CLEAR) 03/31/17 17:28 Urine pH 7.0 03/31/17 17:28 Ur Specific [place] 1.015 (1.005-1.030) 03/31/17 17:28 Urine Protein 100 mg/dL (NEGATIVE) H 03/31/17 17:28 Urine Glucose (UA) NEGATIVE mg/dL (NEGATIVE) 03/31/17 17:28 Urine Ketones 15 mg/dL (NEGATIVE) H 03/31/17 17:28 Urine Blood NEGATIVE (NEGATIVE) 03/31/17 17:28 Urine Nitrate NEGATIVE (NEGATIVE) 03/31/17 17:28 Urine Bilirubin NEGATIVE (NEGATIVE) 03/31/17 17:28 Urine Urobilinogen 4.0 E.U./dL (0.2 - 1.0) H 03/31/17 17:28 Ur Leukocyte Esterase MODERATE (NEGATIVE) H 03/31/17 17:28 Urine RBC 0-2 /hpf (0-5) H 03/31/17 17:28 Urine WBC >100 /hpf (0-5) H 03/31/17 17:28 Ur Epithelial Cells FEW /lpf (FEW) 03/31/17 17:28 Triple Phos Crystals MODERATE /hpf (FEW) 03/20/17 18:50 Amorphous Sediment MODERATE URATES (NONE SEEN) 03/31/17 17:28 Urine Bacteria MODERATE /hpf (NONE SEEN) 03/31/17 17:28 Hyaline Casts 0-2 /lpf (0-2) H 03/31/17 17:28 Vancomycin Trough 18.2 ug/mL (10-20) 03/25/17 05:00 - Physical Exam Vitals and I&O: Vital Signs Temp 99.2 F 04/11/17 20:00 Pulse 86 04/11/17 20:00 Resp 18 04/11/17 20:00 BP 122/71 04/11/17 20:00 Pulse Ox 92 04/11/17 20:00 Intake & Output 04/11/17 04/11/17 04/12/17 06:59 18:59 06:59 Intake Total 620 100 Output Total 450 Balance 170 100 Weight (lbs) 23.4 kg 23.4 kg Intake: Intake, IV Amount 100 100 Meropenem 1 gm In Sodium 100 100 Chloride 0.9% 100 ml @ 100 mls/hr IV Q12HR [facility] Rx#:[id number] Tube Feeding 400 Other 120 Output: Urine 450 Other: # Bowel Movements 1 Active Medications: Current Medications Acetaminophen (Tylenol 650mg/20.3ml Suspension) 650 mg GT Q4HR PRN PRN Reason: Pain Or Fever >99.9 Stop: 05/18/17 21:32 Last Admin: 04/07/17 02:46 Dose: 650 mg Albuterol Sulfate (Albuterol 2.5mg/3ml Neb Ud) 2.5 mg HHN Q4H PRN PRN Reason: Shortness of Breath Last Admin: 03/24/17 15:38 Dose: 2.5 mg Ascorbic Acid (Vitamin C) 500 mg GT DAILY [facility] Stop: 05/19/17 08:59 Last Admin: 04/11/17 08:28 Dose: 500 mg Bisacodyl (Dulcolax 10 Mg Supp) 10 mg RC Q96H PRN PRN Reason: Constipation Stop: 05/18/17 21:32 Dextrose (Glutose 40%) 15 gm PO PRN PRN PRN Reason: hypoglycemia Stop: 05/19/17 11:22 Fluconazole (Diflucan) 100 mg PO DAILY [facility] Stop: 04/14/17 10:46 Last Admin: 04/11/17 08:27 Dose: 100 mg Glucagon (Glucagen) 1 mg IM PRN PRN PRN Reason: hypoglycemia Stop: 05/19/17 11:22 Meropenem 1 gm/ Sodium (Chloride) 100 mls @ 100 mls/hr IV Q12HR [facility] Stop: 06/08/17 10:59 Last Admin: 04/11/17 20:44 Dose: 100 mls/hr Insulin Aspart (Novolog Insulin Sliding Scale) 0 units SUBQ Q6HR [facility] PRN Reason: Protocol Stop: 05/19/17 00:00 Last Admin: 04/11/17 17:29 Dose: Not Given Lactulose (Cephulac) 30 gm PO BID [facility] Stop: 05/19/17 16:59 Last Admin: 04/11/17 17:21 Dose: Not Given Magnesium Hydroxide (Milk Of Magnesia) 30 ml GT Q72HR PRN PRN Reason: Constipation Stop: 05/18/17 21:32 Miscellaneous (Vte Chemical Prophylaxis Screen/ Admission) 1 ea [facility] PRN PRN PRN Reason: PROTOCOL Stop: 05/19/17 10:29 Oxcarbazepine (Trileptal) 300 mg GT BID [facility] PRN Reason: Protocol Stop: 05/19/17 08:59 Last Admin: 04/11/17 17:22 Dose: 300 mg Oxybutynin Chloride (Ditropan) 5 mg GT TID [facility] Stop: 05/18/17 21:32 Last Admin: 04/11/17 20:45 Dose: 5 mg Senna (Senna) 8.6 mg GT BID [facility] Stop: 05/19/17 08:59 Last Admin: 04/11/17 17:21 Dose: Not Given Sodium Phosphate (Fleet Enema) 135 ml RC Q96H PRN PRN Reason: Constipation Stop: 05/19/17 11:22 General: no acute distress, well developed, well nourished HEENT: atraumatic, normocephalic, EOMI Neck: supple, no thyromegaly Cardiovascular: S1S2, regular Lungs: no clear to auscultation bilaterally, no clear to percussion Abdomen: soft, other (suprapubic cath.), no tender, no distended Extremities: no cyanosis, no clubbing, no edema Neurological: awake, alert - Procedures Procedures: Procedures Procedure Code Date CHANGE DRAINAGE DEVICE IN BLADDER, EXTERNAL APPROACH [id number] 03/19/17 NUBIA SUBQ TISSUE 20 SQ CM/< 09038 06/21/13 INJECT ANTIBIOTIC 99.21 11/07/12 INSERT TEMP BLADDER CATH 00018 03/19/17 NONEXCIS DEBRID OF WOUND, INFECT, OR BURN 86.28 06/21/13 REPLACE INDWELLING CATH 57.95 11/07/12 Infectious Disease Assmt/Plan - Problem List Patient Problems: All Active Problems FEVER WITH ABNORMAL LABS AND WBC (Acute) Decubitus ulcer (Active) L89.90 Fever (Active) R50.9 Urine screening abnormal (Active) - Assessment Assessment: 1. UTI. 2/2 infected suprapubic Ambriz. 2. fecal impaction. 3. Seizure disorder. 4. Mental retardation. 5. Suprapubic catheter, infected and malfunctioning. It has been changed. 6. Dysphagia, and G tube placement. 7. Malfunctioning Suprapubic Catheter. catheter was changed with G tube. 8. Candiduria. 9. Diarrhea. Recommendations: Continue meropenem for 14 days Meropenem can be changed to invanz 1 gm IV daily for 14 days total. Continue diflucan po for 10 days. patient needs follow up or transfer to higher level of care for appropriate placement of suprapubic catheter by urologist. dw case management. CBC in the morning. Stool for C. difficile and WBC. DC planning. Nutritional Asmnt/Malnutr-PDOC - Dietary Evaluation Malnutrition Findings (Please click <Entered> for more info): Nutritional Asmnt/Malnutrition Start: 03/21/17 16: 15 Text: Status: Complete Freq: Document 03/21/17 16:18 GSUN (Rec: 03/21/17 16:25 [email or web address] Nutritional Asmnt/Malnutrition Patient General Information Nutritional Screening High Risk Screening Diagnosis Fevere r/o sepsis, possible UTI vs intraabdominal infection, fecal impactio Pertinent Medical Hx/Surgical Hx Severe mental retardation, cerebral palsy, seizure disorder, dysphagia with PEG, femur frature, suprapubic cath placement, stage IV decubitus ulcer Subjective Information 36 year old male from SNF. KUB: severely distended stool-filled colon and rectum. Visited pt with RN at bedside . Pt made eye contact with RD, non-verbal, no significant wasting noted. Obsered tube feeding off at this time. RN stated pt had 1 BM overnight, continues to have fever, abdomen distended but soft. Pt tolerating tube feeding well per RN notes and assessments. Current Diet Order/ Nutrition Support Diabetisource at 80ml/hr x 16hrs/day Pertinent Medications Vitamin C, Dulcolax, Glutose 40%, Glucagen, Novolog, MOM, Senna, Nacl 0.9%, Fleet Enema Pertinent Labs 03/20: A1c 6 03/21: glucose 150H Nutritional Hx/Data Height 1.55 m Height (Calculated Centimeters) 154.9 Current Weight (lbs) 56.699 kg Weight (Calculated Kilograms) 56.7 Weight (Calculated Grams) 22879.0 [place] Body Weight 112 Weight Status Approriate GI Symptoms GI Symptoms Constipation Usual diet at home [facility] SNF: Glucerna at 80ml/hr x 16hrs/day Skin Integrity/Comment: Rolando Valdivia. 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 Problem Problem Difficulty swallowing related to Etiology dysphagia severe mental retardation aeb Signs/Symptoms: PEG dependent Intervention/Recommendation Comments 1. Continue with SNF order Diabetisource 80ml/hr x 16hrs/ day, providing 1536kcal and 77g protein, meeting nutritional needs. Expected Outcomes/Goals Expected Outcomes/Goals 1. Pt continue to meet 100% of estimated nutritional needs on tube feeding with tolerance .
[2017-04-12] MEDS: INSULIN ASPART SLIDING SCALE 100 UNITS/ML UNIT SUBQ SCH ×3 (00:14→12:29)
[2017-04-12 06:21] LABS: % BASOPHILS 0.3 % (0.0-2.0); % EOSINOPHILS 5.4 % (0.0-5.0); % LYMPHOCYTES 27.4 % (20.0-50.0); % MONOCYTES 6.7 % (2.0-10.0); % NEUTROPHILS 60.2 % (40.0-80.0); HEMATOCRIT 38.4 % (39.0-49.0); HEMOGLOBIN 12.6 gm/dL (13.2-17.3); MEAN CORPUSCULAR HEMOGLOBIN 28.6 pg (26.0-30.0); MEAN CORPUSCULAR HGB CONC 32.9 pg (28.0-36.0); NEUTROPHILE ABSOLUTE 3.2 Th/cmm (1.8-8.0); PLATELET COUNT 193 Th/cmm (150-400); RED BLOOD COUNT 4.41 Mil/cmm (4.30-5.70); RED CELL DISTRIBUTION WIDTH 13.1 % (11.5-20.0); WHITE BLOOD COUNT 5.4 Th/cmm (4.8-10.8)
[2017-04-12 06:43] LABS: ANION GAP 7.5 (7.0-16.0); BUN - UREA NITROGEN 15 mg/dL (7-25); BUN/CREATININE RATIO 37.5; CALCIUM SERUM 8.9 mg/dL (8.6-10.3); CHLORIDE 103 mEq/L (98-107); CREATININE - SERUM 0.4 mg/dL (0.7-1.3); GLUCOSE 102 mg/dL (70-105); POTASSIUM SERUM 3.5 mEq/L (3.5-5.1); SODIUM SERUM 134 mEq/L (136-145)
[2017-04-12] MEDS: Meropenem 1 GM in Sodium Chloride 0.9% 100 ML IV SCH ×2 (09:42→20:44)
[2017-04-12] MEDS: Ascorbic Acid 500 mg/5 mL UDC GT SCH (09:42)
[2017-04-12] MEDS: Lactulose 10 Gm/15 mL 30mL UDC PO SCH ×2 (09:43→17:45)
--- NOTE | 2017-04-12 23:59 | Infectious Disease Prog Note ---
Infectious Disease Subjective - Review of Systems Service Date: 04/12/17 Subjective: No new change. Infectious Disease Objective - Results Result Diagrams: 04/13/17 04:50 04/13/17 04:50 Recent Labs: Laboratory Last Values WBC 5.4 Th/cmm (4.8-10.8) 04/12/17 06:04 RBC 4.41 Mil/cmm (4.30-5.70) 04/12/17 06:04 Hgb 12.6 gm/dL (13.2-17.3) L 04/12/17 06:04 Hct 38.4 % (39.0-49.0) L 04/12/17 06:04 MCV 87.0 fl (80-99) 04/12/17 06:04 MCH 28.6 pg (26.0-30.0) 04/12/17 06:04 MCHC Differential 32.9 pg (28.0-36.0) 04/12/17 06:04 RDW 13.1 % (11.5-20.0) 04/12/17 06:04 Plt Count 193 Th/cmm (150-400) 04/12/17 06:04 MPV 9.0 fl 04/12/17 06:04 Neutrophils % 60.2 % (40.0-80.0) 04/12/17 06:04 Band Neutrophils % 2 % (0-10) 04/03/17 04:40 Lymphocytes % 27.4 % (20.0-50.0) 04/12/17 06:04 Monocytes % 6.7 % (2.0-10.0) 04/12/17 06:04 Eosinophils % 5.4 % (0.0-5.0) H 04/12/17 06:04 Basophils % 0.3 % (0.0-2.0) 04/12/17 06:04 Neutrophils (Manual) 75 % (40-80) 04/03/17 04:40 Lymphocytes 15 % (20-50) L 04/03/17 04:40 Monocytes 8 % (2-10) 04/03/17 04:40 Platelet Estimate ADEQUATE (NORMAL) 04/03/17 04:40 PT 9.6 SECONDS (9.5-11.5) 04/02/17 04:35 INR 0.92 (0.5-1.4) 04/02/17 04:35 PTT (Actin FS) 25.6 SECONDS (26.0-38.0) L 04/02/17 04:35 Sodium 134 mEq/L (136-145) L 04/12/17 06:04 Potassium 3.5 mEq/L (3.5-5.1) 04/12/17 06:04 Chloride 103 mEq/L (98-107) 04/12/17 06:04 Carbon Dioxide 27.0 mEq/L (21.0-31.0) 04/12/17 06:04 Anion Gap 7.5 (7.0-16.0) 04/12/17 06:04 BUN 15 mg/dL (7-25) 04/12/17 06:04 Creatinine 0.4 mg/dL (0.7-1.3) L 04/12/17 06:04 Est GFR ( Amer) > 60.0 ml/min (>90) 04/12/17 06:04 Est GFR (Non-Af Amer) > 60.0 ml/min 04/12/17 06:04 BUN/Creatinine Ratio 37.5 04/12/17 06:04 Glucose 102 mg/dL (70-105) 04/12/17 06:04 POC Glucose 124 MG/DL (70 - 105) H 04/12/17 23:37 Hemoglobin A1c % 6.0 % (4.0-6.0) 03/20/17 07:35 Whole Bld Lactic Acid 0.53 mmol/L (0.60-1.99) L 03/20/17 07:35 Calcium 8.9 mg/dL (8.6-10.3) 04/12/17 06:04 Magnesium 2.2 mg/dL (1.9-2.7) 04/03/17 04:40 Total Bilirubin 0.3 mg/dL (0.3-1.0) 04/07/17 05:34 AST 12 U/L (13-39) L 04/07/17 05:34 ALT 11 U/L (7-52) 04/07/17 05:34 Alkaline Phosphatase 50 U/L (34-104) 04/07/17 05:34 Total Protein 7.2 gm/dL (6.0-8.3) 04/07/17 05:34 Albumin 3.8 gm/dL (4.2-5.5) L 04/07/17 05:34 Globulin 3.4 gm/dL 04/07/17 05:34 Albumin/Globulin Ratio 1.1 (1.0-1.8) 04/07/17 05:34 Urine Source [place] 03/31/17 17:28 Urine Color YELLOW 03/31/17 17:28 Urine Clarity CLOUDY (CLEAR) 03/31/17 17:28 Urine pH 7.0 03/31/17 17:28 Ur Specific [place] 1.015 (1.005-1.030) 03/31/17 17:28 Urine Protein 100 mg/dL (NEGATIVE) H 03/31/17 17:28 Urine Glucose (UA) NEGATIVE mg/dL (NEGATIVE) 03/31/17 17:28 Urine Ketones 15 mg/dL (NEGATIVE) H 03/31/17 17:28 Urine Blood NEGATIVE (NEGATIVE) 03/31/17 17:28 Urine Nitrate NEGATIVE (NEGATIVE) 03/31/17 17:28 Urine Bilirubin NEGATIVE (NEGATIVE) 03/31/17 17:28 Urine Urobilinogen 4.0 E.U./dL (0.2 - 1.0) H 03/31/17 17:28 Ur Leukocyte Esterase MODERATE (NEGATIVE) H 03/31/17 17:28 Urine RBC 0-2 /hpf (0-5) H 03/31/17 17:28 Urine WBC >100 /hpf (0-5) H 03/31/17 17:28 Ur Epithelial Cells FEW /lpf (FEW) 03/31/17 17:28 Triple Phos Crystals MODERATE /hpf (FEW) 03/20/17 18:50 Amorphous Sediment MODERATE URATES (NONE SEEN) 03/31/17 17:28 Urine Bacteria MODERATE /hpf (NONE SEEN) 03/31/17 17:28 Hyaline Casts 0-2 /lpf (0-2) H 03/31/17 17:28 Vancomycin Trough 18.2 ug/mL (10-20) 03/25/17 05:00 - Physical Exam Vitals and I&O: Vital Signs Temp 98.1 F 04/12/17 20:00 Pulse 67 04/12/17 20:00 Resp 18 04/12/17 20:00 BP 101/59 04/12/17 20:00 Pulse Ox 94 04/12/17 20:00 Intake & Output 04/12/17 04/12/17 04/13/17 06:59 18:59 06:59 Intake Total 700 1360 100 Output Total 700 Balance 0 1360 100 Weight (lbs) 56.245 kg 56.245 kg Intake: Intake, IV Amount 100 100 100 Meropenem 1 gm In Sodium 100 100 100 Chloride 0.9% 100 ml @ 100 mls/hr IV Q12HR [facility] Rx#:[id number] Tube Feeding 400 960 Other 200 300 Output: Urine 700 Other: # Bowel Movements 1 Stool Characteristics Soft Soft Active Medications: Current Medications Acetaminophen (Tylenol 650mg/20.3ml Suspension) 650 mg GT Q4HR PRN PRN Reason: Pain Or Fever >99.9 Stop: 05/18/17 21:32 Last Admin: 04/07/17 02:46 Dose: 650 mg Albuterol Sulfate (Albuterol 2.5mg/3ml Neb Ud) 2.5 mg HHN Q4H PRN PRN Reason: Shortness of Breath Last Admin: 03/24/17 15:38 Dose: 2.5 mg Ascorbic Acid (Vitamin C) 500 mg GT DAILY [facility] Stop: 05/19/17 08:59 Last Admin: 04/12/17 09:42 Dose: 500 mg Bisacodyl (Dulcolax 10 Mg Supp) 10 mg RC Q96H PRN PRN Reason: Constipation Stop: 05/18/17 21:32 Dextrose (Glutose 40%) 15 gm PO PRN PRN PRN Reason: hypoglycemia Stop: 05/19/17 11:22 Glucagon (Glucagen) 1 mg IM PRN PRN PRN Reason: hypoglycemia Stop: 05/19/17 11:22 Meropenem 1 gm/ Sodium (Chloride) 100 mls @ 100 mls/hr IV Q12HR [facility] Stop: 06/08/17 10:59 Last Infusion: 04/12/17 21:44 Dose: Infused Insulin Aspart (Novolog Insulin Sliding Scale) 0 units SUBQ Q6HR [facility] PRN Reason: Protocol Stop: 05/19/17 00:00 Last Admin: 04/12/17 12:29 Dose: Not Given Lactulose (Cephulac) 30 gm PO BID [facility] Stop: 05/19/17 16:59 Last Admin: 04/12/17 17:45 Dose: Not Given Magnesium Hydroxide (Milk Of Magnesia) 30 ml GT Q72HR PRN PRN Reason: Constipation Stop: 05/18/17 21:32 Miscellaneous (Vte Chemical Prophylaxis Screen/ Admission) 1 ea [facility] PRN PRN PRN Reason: PROTOCOL Stop: 05/19/17 10:29 Oxcarbazepine (Trileptal) 300 mg GT BID [facility] PRN Reason: Protocol Stop: 05/19/17 08:59 Last Admin: 04/12/17 17:44 Dose: 300 mg Oxybutynin Chloride (Ditropan) 5 mg GT TID [facility] Stop: 05/18/17 21:32 Last Admin: 04/12/17 20:44 Dose: 5 mg Senna (Senna) 8.6 mg GT BID [facility] Stop: 05/19/17 08:59 Last Admin: 04/12/17 17:44 Dose: 8.6 mg Sodium Phosphate (Fleet Enema) 135 ml RC Q96H PRN PRN Reason: Constipation Stop: 05/19/17 11:22 General: no acute distress, well developed, well nourished HEENT: atraumatic, normocephalic, PERRLA, EOMI, moist mucous membrane Neck: supple, no thyromegaly, no rigid Cardiovascular: S1S2, regular Lungs: clear to auscultation bilaterally, clear to percussion Abdomen: soft, other (suprapubic ( PEG ) catheter), no tender, no distended Extremities: no cyanosis, no clubbing Neurological: awake, alert Skin: intact - Procedures Procedures: Procedures Procedure Code Date CHANGE DRAINAGE DEVICE IN BLADDER, EXTERNAL APPROACH [id number] 03/19/17 NUBIA SUBQ TISSUE 20 SQ CM/< 73029 06/21/13 INJECT ANTIBIOTIC 99.21 11/07/12 INSERT TEMP BLADDER CATH [id number] 03/19/17 NONEXCIS DEBRID OF WOUND, INFECT, OR BURN 86.28 06/21/13 REPLACE INDWELLING CATH 57.95 11/07/12 Infectious Disease Assmt/Plan - Problem List Patient Problems: All Active Problems FEVER WITH ABNORMAL LABS AND WBC (Acute) Decubitus ulcer (Active) L89.90 Fever (Active) R50.9 Urine screening abnormal (Active) - Assessment Assessment: 1. UTI. 2/2 infected suprapubic [place]. 2. fecal impaction. 3. Seizure disorder. 4. Mental retardation. 5. Suprapubic catheter, infected and malfunctioning. It has been changed. 6. Dysphagia, and G tube placement. 7. Malfunctioning Suprapubic Catheter. catheter was changed with G tube. 8. Candiduria. 9. Diarrhea. Recommendations: Continue meropenem for 14 days Meropenem can be changed to invanz 1 gm IV daily for 14 days total. Continue diflucan po for 10 days. patient needs follow up or transfer to higher level of care for appropriate placement of suprapubic catheter by urologist. dw case management. CBC in the morning. Stool for C. difficile and WBC. DC planning. Nutritional Asmnt/Malnutr-PDOC - Dietary Evaluation Malnutrition Findings (Please click <Entered> for more info): Nutritional Asmnt/Malnutrition Start: 03/21/17 16: 15 Text: Status: Complete Freq: Document 03/21/17 16:18 GSUN (Rec: 03/21/17 16:25 [email or web address] [email or web address]) Nutritional Asmnt/Malnutrition Patient General Information Nutritional Screening High Risk Screening Diagnosis Fevere r/o sepsis, possible UTI vs intraabdominal infection, fecal impactio Pertinent Medical Hx/Surgical Hx Severe mental retardation, cerebral palsy, seizure disorder, dysphagia with PEG, femur frature, suprapubic cath placement, stage IV decubitus ulcer Subjective Information 36 year old male from SNF. KUB: severely distended stool-filled colon and rectum. Visited pt with RN at bedside . Pt made eye contact with RD, non-verbal, no significant wasting noted. Obsered tube feeding off at this time. RN stated pt had 1 BM overnight, continues to have fever, abdomen distended but soft. Pt tolerating tube feeding well per RN notes and assessments. Current Diet Order/ Nutrition Support Diabetisource at 80ml/hr x 16hrs/day Pertinent Medications Vitamin C, Dulcolax, Glutose 40%, Glucagen, Novolog, MOM, Senna, Nacl 0.9%, Fleet Enema Pertinent Labs 03/20: A1c 6 03/21: glucose 150H Nutritional Hx/Data Height 1.55 m Height (Calculated Centimeters) 154.9 Current Weight (lbs) 56.699 kg Weight (Calculated Kilograms) 56.7 Weight (Calculated Grams) 68108.0 [place] Body Weight 112 Weight Status Approriate GI Symptoms GI Symptoms Constipation Usual diet at home [facility] SNF: Glucerna at 80ml/hr x 16hrs/day Skin Integrity/Comment: Rolando Valdivia. 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 Problem Problem Difficulty swallowing related to Etiology dysphagia severe mental retardation aeb Signs/Symptoms: PEG dependent Intervention/Recommendation Comments 1. Continue with SNF order Diabetisource 80ml/hr x 16hrs/ day, providing 1536kcal and 77g protein, meeting nutritional needs. Expected Outcomes/Goals Expected Outcomes/Goals 1. Pt continue to meet 100% of estimated nutritional needs on tube feeding with tolerance .
[2017-04-13] MEDS: INSULIN ASPART SLIDING SCALE 100 UNITS/ML UNIT SUBQ SCH ×4 (05:47→19:32)
[2017-04-13 06:00] LABS: % BASOPHILS 0.3 % (0.0-2.0); % EOSINOPHILS 2.4 % (0.0-5.0); % LYMPHOCYTES 12.8 % (20.0-50.0); % MONOCYTES 5.7 % (2.0-10.0); % NEUTROPHILS 78.8 % (40.0-80.0); HEMATOCRIT 36.9 % (39.0-49.0); HEMOGLOBIN 12.5 gm/dL (13.2-17.3); MEAN CELL VOLUME 86.3 fl (80-99); MEAN CORPUSCULAR HEMOGLOBIN 29.1 pg (26.0-30.0); MEAN CORPUSCULAR HGB CONC 33.7 pg (28.0-36.0); MEAN PLATELET VOLUME 10.7 fl; NEUTROPHILE ABSOLUTE 8.8 Th/cmm (1.8-8.0); PLATELET COUNT 170 Th/cmm (150-400); RED BLOOD COUNT 4.28 Mil/cmm (4.30-5.70); RED CELL DISTRIBUTION WIDTH 13.5 % (11.5-20.0)
[2017-04-13 06:05] LABS: WHITE BLOOD COUNT 11.1 Th/cmm (4.8-10.8)
[2017-04-13 06:08] LABS: BUN - UREA NITROGEN 17 mg/dL (7-25); BUN/CREATININE RATIO 42.5; CARBON DIOXIDE 26.5 mEq/L (21.0-31.0); CHLORIDE 104 mEq/L (98-107); CREATININE - SERUM 0.4 mg/dL (0.7-1.3); GLUCOSE 101 mg/dL (70-105); POTASSIUM SERUM 3.5 mEq/L (3.5-5.1); SODIUM SERUM 133 mEq/L (136-145)
[2017-04-13] MEDS: Meropenem 1 GM in Sodium Chloride 0.9% 100 ML IV SCH ×2 (08:18→21:34)
[2017-04-13] MEDS: Ascorbic Acid 500 mg/5 mL UDC GT SCH (08:19)
[2017-04-13] MEDS: Lactulose 10 Gm/15 mL 30mL UDC PO SCH ×2 (08:19→16:51)
[2017-04-14] MEDS: INSULIN ASPART SLIDING SCALE 100 UNITS/ML UNIT SUBQ SCH ×3 (01:09→12:09)
[2017-04-14 05:34] LABS: % BASOPHILS 0.1 % (0.0-2.0); % EOSINOPHILS 7.8 % (0.0-5.0); % LYMPHOCYTES 21.8 % (20.0-50.0); % MONOCYTES 6.9 % (2.0-10.0); % NEUTROPHILS 63.4 % (40.0-80.0); HEMOGLOBIN 12.7 gm/dL (13.2-17.3); MEAN CELL VOLUME 86.9 fl (80-99); MEAN CORPUSCULAR HGB CONC 33.4 pg (28.0-36.0); MEAN PLATELET VOLUME 10.2 fl; NEUTROPHILE ABSOLUTE 3.5 Th/cmm (1.8-8.0); PLATELET COUNT 191 Th/cmm (150-400); RED BLOOD COUNT 4.38 Mil/cmm (4.30-5.70); RED CELL DISTRIBUTION WIDTH 13.5 % (11.5-20.0); WHITE BLOOD COUNT 5.5 Th/cmm (4.8-10.8)
[2017-04-14 06:12] LABS: ANION GAP 6.6 (7.0-16.0); BUN - UREA NITROGEN 16 mg/dL (7-25); CALCIUM SERUM 9.1 mg/dL (8.6-10.3); CARBON DIOXIDE 26.9 mEq/L (21.0-31.0); CHLORIDE 102 mEq/L (98-107); CREATININE - SERUM 0.4 mg/dL (0.7-1.3); GLUCOSE 131 mg/dL (70-105); POTASSIUM SERUM 3.5 mEq/L (3.5-5.1); SODIUM SERUM 132 mEq/L (136-145)
[2017-04-14] MEDS: Meropenem 1 GM in Sodium Chloride 0.9% 100 ML IV SCH (09:07)
[2017-04-14] MEDS: Lactulose 10 Gm/15 mL 30mL UDC PO SCH (09:09)
[2017-04-14] MEDS: Ascorbic Acid 500 mg/5 mL UDC GT SCH (09:09)
--- NOTE | 2017-04-14 12:12 | Infectious Disease Prog Note ---
Infectious Disease Subjective - Review of Systems Service Date: 04/13/17 Subjective: No new change. Infectious Disease Objective - Results Result Diagrams: 04/14/17 05:10 04/14/17 05:10 Recent Labs: Laboratory Last Values WBC 5.5 Th/cmm (4.8-10.8) D 04/14/17 05:10 RBC 4.38 Mil/cmm (4.30-5.70) 04/14/17 05:10 Hgb 12.7 gm/dL (13.2-17.3) L 04/14/17 05:10 Hct 38.0 % (39.0-49.0) L 04/14/17 05:10 MCV 86.9 fl (80-99) 04/14/17 05:10 MCH 29.0 pg (26.0-30.0) 04/14/17 05:10 MCHC Differential 33.4 pg (28.0-36.0) 04/14/17 05:10 RDW 13.5 % (11.5-20.0) 04/14/17 05:10 Plt Count 191 Th/cmm (150-400) 04/14/17 05:10 MPV 10.2 fl 04/14/17 05:10 Neutrophils % 63.4 % (40.0-80.0) 04/14/17 05:10 Band Neutrophils % 2 % (0-10) 04/03/17 04:40 Lymphocytes % 21.8 % (20.0-50.0) 04/14/17 05:10 Monocytes % 6.9 % (2.0-10.0) 04/14/17 05:10 Eosinophils % 7.8 % (0.0-5.0) H 04/14/17 05:10 Basophils % 0.1 % (0.0-2.0) 04/14/17 05:10 Neutrophils (Manual) 75 % (40-80) 04/03/17 04:40 Lymphocytes 15 % (20-50) L 04/03/17 04:40 Monocytes 8 % (2-10) 04/03/17 04:40 Platelet Estimate ADEQUATE (NORMAL) 04/03/17 04:40 PT 9.6 SECONDS (9.5-11.5) 04/02/17 04:35 INR 0.92 (0.5-1.4) 04/02/17 04:35 PTT (Actin FS) 25.6 SECONDS (26.0-38.0) L 04/02/17 04:35 Sodium 132 mEq/L (136-145) L 04/14/17 05:10 Potassium 3.5 mEq/L (3.5-5.1) 04/14/17 05:10 Chloride 102 mEq/L (98-107) 04/14/17 05:10 Carbon Dioxide 26.9 mEq/L (21.0-31.0) 04/14/17 05:10 Anion Gap 6.6 (7.0-16.0) L 04/14/17 05:10 BUN 16 mg/dL (7-25) 04/14/17 05:10 Creatinine 0.4 mg/dL (0.7-1.3) L 04/14/17 05:10 Est GFR ( Amer) > 60.0 ml/min (>90) 04/14/17 05:10 Est GFR (Non-Af Amer) > 60.0 ml/min 04/14/17 05:10 BUN/Creatinine Ratio 40.0 04/14/17 05:10 Glucose 131 mg/dL (70-105) H 04/14/17 05:10 POC Glucose 109 MG/DL (70 - 105) H 04/14/17 05:38 Hemoglobin A1c % 6.0 % (4.0-6.0) 03/20/17 07:35 Whole Bld Lactic Acid 0.53 mmol/L (0.60-1.99) L 03/20/17 07:35 Calcium 9.1 mg/dL (8.6-10.3) 04/14/17 05:10 Magnesium 2.0 mg/dL (1.9-2.7) 04/14/17 05:10 Total Bilirubin 0.3 mg/dL (0.3-1.0) 04/07/17 05:34 AST 12 U/L (13-39) L 04/07/17 05:34 ALT 11 U/L (7-52) 04/07/17 05:34 Alkaline Phosphatase 50 U/L (34-104) 04/07/17 05:34 Total Protein 7.2 gm/dL (6.0-8.3) 04/07/17 05:34 Albumin 3.8 gm/dL (4.2-5.5) L 04/07/17 05:34 Globulin 3.4 gm/dL 04/07/17 05:34 Albumin/Globulin Ratio 1.1 (1.0-1.8) 04/07/17 05:34 Urine Source [place] 03/31/17 17:28 Urine Color YELLOW 03/31/17 17:28 Urine Clarity CLOUDY (CLEAR) 03/31/17 17:28 Urine pH 7.0 03/31/17 17:28 Ur Specific [place] 1.015 (1.005-1.030) 03/31/17 17:28 Urine Protein 100 mg/dL (NEGATIVE) H 03/31/17 17:28 Urine Glucose (UA) NEGATIVE mg/dL (NEGATIVE) 03/31/17 17:28 Urine Ketones 15 mg/dL (NEGATIVE) H 03/31/17 17:28 Urine Blood NEGATIVE (NEGATIVE) 03/31/17 17:28 Urine Nitrate NEGATIVE (NEGATIVE) 03/31/17 17:28 Urine Bilirubin NEGATIVE (NEGATIVE) 03/31/17 17:28 Urine Urobilinogen 4.0 E.U./dL (0.2 - 1.0) H 03/31/17 17:28 Ur Leukocyte Esterase MODERATE (NEGATIVE) H 03/31/17 17:28 Urine RBC 0-2 /hpf (0-5) H 03/31/17 17:28 Urine WBC >100 /hpf (0-5) H 03/31/17 17:28 Ur Epithelial Cells FEW /lpf (FEW) 03/31/17 17:28 Triple Phos Crystals MODERATE /hpf (FEW) 03/20/17 18:50 Amorphous Sediment MODERATE URATES (NONE SEEN) 03/31/17 17:28 Urine Bacteria MODERATE /hpf (NONE SEEN) 03/31/17 17:28 Hyaline Casts 0-2 /lpf (0-2) H 03/31/17 17:28 Vancomycin Trough 18.2 ug/mL (10-20) 03/25/17 05:00 - Physical Exam Vitals and I&O: Vital Signs Temp 97.5 F 04/14/17 11:55 Pulse 84 04/14/17 11:55 Resp 18 04/14/17 11:55 BP 116/64 04/14/17 11:55 Pulse Ox 94 04/14/17 11:55 Intake & Output 04/13/17 04/14/17 04/14/17 18:59 06:59 18:59 Intake Total 100 100 Output Total 500 Balance 100 -400 Weight (lbs) 56.245 kg Intake: Intake, IV Amount 100 100 Meropenem 1 gm In Sodium 100 100 Chloride 0.9% 100 ml @ 100 mls/hr IV Q12HR [facility] Rx#:[id number] Output: Urine 500 Other: # Bowel Movements 0 Active Medications: Current Medications Acetaminophen (Tylenol 650mg/20.3ml Suspension) 650 mg GT Q4HR PRN PRN Reason: Pain Or Fever >99.9 Stop: 05/18/17 21:32 Last Admin: 04/07/17 02:46 Dose: 650 mg Albuterol Sulfate (Albuterol 2.5mg/3ml Neb Ud) 2.5 mg HHN Q4H PRN PRN Reason: Shortness of Breath Last Admin: 03/24/17 15:38 Dose: 2.5 mg Ascorbic Acid (Vitamin C) 500 mg GT DAILY [facility] Stop: 05/19/17 08:59 Last Admin: 04/14/17 09:09 Dose: 500 mg Bisacodyl (Dulcolax 10 Mg Supp) 10 mg RC Q96H PRN PRN Reason: Constipation Stop: 05/18/17 21:32 Dextrose (Glutose 40%) 15 gm PO PRN PRN PRN Reason: hypoglycemia Stop: 05/19/17 11:22 Glucagon (Glucagen) 1 mg IM PRN PRN PRN Reason: hypoglycemia Stop: 05/19/17 11:22 Meropenem 1 gm/ Sodium (Chloride) 100 mls @ 100 mls/hr IV Q12HR [facility] Stop: 06/08/17 10:59 Last Admin: 04/14/17 09:07 Dose: 100 mls/hr Insulin Aspart (Novolog Insulin Sliding Scale) 0 units SUBQ Q6HR [facility] PRN Reason: Protocol Stop: 05/19/17 00:00 Last Admin: 04/14/17 12:09 Dose: Not Given Lactulose (Cephulac) 30 gm PO BID [facility] Stop: 05/19/17 16:59 Last Admin: 04/14/17 09:09 Dose: Not Given Magnesium Hydroxide (Milk Of Magnesia) 30 ml GT Q72HR PRN PRN Reason: Constipation Stop: 05/18/17 21:32 Miscellaneous (Vte Chemical Prophylaxis Screen/ Admission) 1 ea [facility] PRN PRN PRN Reason: PROTOCOL Stop: 05/19/17 10:29 Oxcarbazepine (Trileptal) 300 mg GT BID [facility] PRN Reason: Protocol Stop: 05/19/17 08:59 Last Admin: 04/14/17 09:09 Dose: 300 mg Oxybutynin Chloride (Ditropan) 5 mg GT TID [facility] Stop: 05/18/17 21:32 Last Admin: 04/14/17 09:09 Dose: 5 mg Senna (Senna) 8.6 mg GT BID [facility] Stop: 05/19/17 08:59 Last Admin: 04/14/17 09:09 Dose: Not Given Sodium Phosphate (Fleet Enema) 135 ml RC Q96H PRN PRN Reason: Constipation Stop: 05/19/17 11:22 General: no acute distress, well developed, well nourished HEENT: atraumatic, normocephalic, PERRLA, EOMI, moist mucous membrane Neck: supple, no thyromegaly Cardiovascular: S1S2, regular Lungs: clear to auscultation bilaterally, clear to percussion Abdomen: soft, other (suprapubic PEG [place] no tender Extremities: no cyanosis, no clubbing Neurological: awake, alert Skin: intact - Procedures Procedures: Procedures Procedure Code Date CHANGE DRAINAGE DEVICE IN BLADDER, EXTERNAL APPROACH [id number] 03/19/17 NUBIA SUBQ TISSUE 20 SQ CM/< 69918 06/21/13 INJECT ANTIBIOTIC 99.21 11/07/12 INSERT TEMP BLADDER CATH [id number] 03/19/17 NONEXCIS DEBRID OF WOUND, INFECT, OR BURN 86.28 06/21/13 REPLACE INDWELLING CATH 57.95 11/07/12 Infectious Disease Assmt/Plan - Problem List Patient Problems: All Active Problems FEVER WITH ABNORMAL LABS AND WBC (Acute) Decubitus ulcer (Active) L89.90 Fever (Active) R50.9 Urine screening abnormal (Active) - Assessment Assessment: 1. UTI. 2/2 infected suprapubic [place]. 2. fecal impaction. 3. Seizure disorder. 4. Mental retardation. 5. Suprapubic catheter, infected and malfunctioning. It has been changed. 6. Dysphagia, and G tube placement. 7. Malfunctioning Suprapubic Catheter. catheter was changed with G tube. 8. Candiduria. 9. Diarrhea. Recommendations: Continue meropenem for 14 days Meropenem can be changed to invanz 1 gm IV daily for 14 days total. Continue diflucan po for 10 days. patient needs follow up or transfer to higher level of care for appropriate placement of suprapubic catheter by urologist. dw case management. CBC in the morning. Stool for C. diff and WBC. DC planning. Nutritional Asmnt/Malnutr-PDOC - Dietary Evaluation Malnutrition Findings (Please click <Entered> for more info): Nutritional Asmnt/Malnutrition Start: 03/21/17 16: 15 Text: Status: Complete Freq: Document 03/21/17 16:18 GSUN (Rec: 03/21/17 16:25 [email or web address] [email or web address]) Nutritional Asmnt/Malnutrition Patient General Information Nutritional Screening High Risk Screening Diagnosis Fevere r/o sepsis, possible UTI vs intraabdominal infection, fecal impactio Pertinent Medical Hx/Surgical Hx Severe mental retardation, cerebral palsy, seizure disorder, dysphagia with PEG, femur frature, suprapubic cath placement, stage IV decubitus ulcer Subjective Information 36 year old male from SNF. KUB: severely distended stool-filled colon and rectum. Visited pt with RN at bedside . Pt made eye contact with RD, non-verbal, no significant wasting noted. Obsered tube feeding off at this time. RN stated pt had 1 BM overnight, continues to have fever, abdomen distended but soft. Pt tolerating tube feeding well per RN notes and assessments. Current Diet Order/ Nutrition Support Diabetisource at 80ml/hr x 16hrs/day Pertinent Medications Vitamin C, Dulcolax, Glutose 40%, Glucagen, Novolog, MOM, Senna, Nacl 0.9%, Fleet Enema Pertinent Labs 03/20: A1c 6 03/21: glucose 150H Nutritional Hx/Data Height 1.55 m Height (Calculated Centimeters) 154.9 Current Weight (lbs) 56.699 kg Weight (Calculated Kilograms) 56.7 Weight (Calculated Grams) 92147.0 [place] Body Weight 112 Weight Status Approriate GI Symptoms GI Symptoms Constipation Usual diet at home [facility] SNF: Glucerna at 80ml/hr x 16hrs/day Skin Integrity/Comment: Rolando Valdivia. 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 Problem Problem Difficulty swallowing related to Etiology dysphagia severe mental retardation aeb Signs/Symptoms: PEG dependent Intervention/Recommendation Comments 1. Continue with SNF order Diabetisource 80ml/hr x 16hrs/ day, providing 1536kcal and 77g protein, meeting nutritional needs. Expected Outcomes/Goals Expected Outcomes/Goals 1. Pt continue to meet 100% of estimated nutritional needs on tube feeding with tolerance .
--- NOTE | 2017-04-14 12:18 | Infectious Disease Prog Note ---
Infectious Disease Subjective - Review of Systems Service Date: 04/14/17 Subjective: No new change. Infectious Disease Objective - Results Result Diagrams: 04/14/17 05:10 04/14/17 05:10 Recent Labs: Laboratory Last Values WBC 5.5 Th/cmm (4.8-10.8) D 04/14/17 05:10 RBC 4.38 Mil/cmm (4.30-5.70) 04/14/17 05:10 Hgb 12.7 gm/dL (13.2-17.3) L 04/14/17 05:10 Hct 38.0 % (39.0-49.0) L 04/14/17 05:10 MCV 86.9 fl (80-99) 04/14/17 05:10 MCH 29.0 pg (26.0-30.0) 04/14/17 05:10 MCHC Differential 33.4 pg (28.0-36.0) 04/14/17 05:10 RDW 13.5 % (11.5-20.0) 04/14/17 05:10 Plt Count 191 Th/cmm (150-400) 04/14/17 05:10 MPV 10.2 fl 04/14/17 05:10 Neutrophils % 63.4 % (40.0-80.0) 04/14/17 05:10 Band Neutrophils % 2 % (0-10) 04/03/17 04:40 Lymphocytes % 21.8 % (20.0-50.0) 04/14/17 05:10 Monocytes % 6.9 % (2.0-10.0) 04/14/17 05:10 Eosinophils % 7.8 % (0.0-5.0) H 04/14/17 05:10 Basophils % 0.1 % (0.0-2.0) 04/14/17 05:10 Neutrophils (Manual) 75 % (40-80) 04/03/17 04:40 Lymphocytes 15 % (20-50) L 04/03/17 04:40 Monocytes 8 % (2-10) 04/03/17 04:40 Platelet Estimate ADEQUATE (NORMAL) 04/03/17 04:40 PT 9.6 SECONDS (9.5-11.5) 04/02/17 04:35 INR 0.92 (0.5-1.4) 04/02/17 04:35 PTT (Actin FS) 25.6 SECONDS (26.0-38.0) L 04/02/17 04:35 Sodium 132 mEq/L (136-145) L 04/14/17 05:10 Potassium 3.5 mEq/L (3.5-5.1) 04/14/17 05:10 Chloride 102 mEq/L (98-107) 04/14/17 05:10 Carbon Dioxide 26.9 mEq/L (21.0-31.0) 04/14/17 05:10 Anion Gap 6.6 (7.0-16.0) L 04/14/17 05:10 BUN 16 mg/dL (7-25) 04/14/17 05:10 Creatinine 0.4 mg/dL (0.7-1.3) L 04/14/17 05:10 Est GFR ( Amer) > 60.0 ml/min (>90) 04/14/17 05:10 Est GFR (Non-Af Amer) > 60.0 ml/min 04/14/17 05:10 BUN/Creatinine Ratio 40.0 04/14/17 05:10 Glucose 131 mg/dL (70-105) H 04/14/17 05:10 POC Glucose 109 MG/DL (70 - 105) H 04/14/17 05:38 Hemoglobin A1c % 6.0 % (4.0-6.0) 03/20/17 07:35 Whole Bld Lactic Acid 0.53 mmol/L (0.60-1.99) L 03/20/17 07:35 Calcium 9.1 mg/dL (8.6-10.3) 04/14/17 05:10 Magnesium 2.0 mg/dL (1.9-2.7) 04/14/17 05:10 Total Bilirubin 0.3 mg/dL (0.3-1.0) 04/07/17 05:34 AST 12 U/L (13-39) L 04/07/17 05:34 ALT 11 U/L (7-52) 04/07/17 05:34 Alkaline Phosphatase 50 U/L (34-104) 04/07/17 05:34 Total Protein 7.2 gm/dL (6.0-8.3) 04/07/17 05:34 Albumin 3.8 gm/dL (4.2-5.5) L 04/07/17 05:34 Globulin 3.4 gm/dL 04/07/17 05:34 Albumin/Globulin Ratio 1.1 (1.0-1.8) 04/07/17 05:34 Urine Source [place] 03/31/17 17:28 Urine Color YELLOW 03/31/17 17:28 Urine Clarity CLOUDY (CLEAR) 03/31/17 17:28 Urine pH 7.0 03/31/17 17:28 Ur Specific [place] 1.015 (1.005-1.030) 03/31/17 17:28 Urine Protein 100 mg/dL (NEGATIVE) H 03/31/17 17:28 Urine Glucose (UA) NEGATIVE mg/dL (NEGATIVE) 03/31/17 17:28 Urine Ketones 15 mg/dL (NEGATIVE) H 03/31/17 17:28 Urine Blood NEGATIVE (NEGATIVE) 03/31/17 17:28 Urine Nitrate NEGATIVE (NEGATIVE) 03/31/17 17:28 Urine Bilirubin NEGATIVE (NEGATIVE) 03/31/17 17:28 Urine Urobilinogen 4.0 E.U./dL (0.2 - 1.0) H 03/31/17 17:28 Ur Leukocyte Esterase MODERATE (NEGATIVE) H 03/31/17 17:28 Urine RBC 0-2 /hpf (0-5) H 03/31/17 17:28 Urine WBC >100 /hpf (0-5) H 03/31/17 17:28 Ur Epithelial Cells FEW /lpf (FEW) 03/31/17 17:28 Triple Phos Crystals MODERATE /hpf (FEW) 03/20/17 18:50 Amorphous Sediment MODERATE URATES (NONE SEEN) 03/31/17 17:28 Urine Bacteria MODERATE /hpf (NONE SEEN) 03/31/17 17:28 Hyaline Casts 0-2 /lpf (0-2) H 03/31/17 17:28 Vancomycin Trough 18.2 ug/mL (10-20) 03/25/17 05:00 - Physical Exam Vitals and I&O: Vital Signs Temp 97.5 F 04/14/17 11:55 Pulse 84 04/14/17 11:55 Resp 18 04/14/17 11:55 BP 116/64 04/14/17 11:55 Pulse Ox 94 04/14/17 11:55 Intake & Output 04/13/17 04/14/17 04/14/17 18:59 06:59 18:59 Intake Total 100 100 Output Total 500 Balance 100 -400 Weight (lbs) 56.245 kg Intake: Intake, IV Amount 100 100 Meropenem 1 gm In Sodium 100 100 Chloride 0.9% 100 ml @ 100 mls/hr IV Q12HR [facility] Rx#:[id number] Output: Urine 500 Other: # Bowel Movements 0 Active Medications: Current Medications Acetaminophen (Tylenol 650mg/20.3ml Suspension) 650 mg GT Q4HR PRN PRN Reason: Pain Or Fever >99.9 Stop: 05/18/17 21:32 Last Admin: 04/07/17 02:46 Dose: 650 mg Albuterol Sulfate (Albuterol 2.5mg/3ml Neb Ud) 2.5 mg HHN Q4H PRN PRN Reason: Shortness of Breath Last Admin: 03/24/17 15:38 Dose: 2.5 mg Ascorbic Acid (Vitamin C) 500 mg GT DAILY [facility] Stop: 05/19/17 08:59 Last Admin: 04/14/17 09:09 Dose: 500 mg Bisacodyl (Dulcolax 10 Mg Supp) 10 mg RC Q96H PRN PRN Reason: Constipation Stop: 05/18/17 21:32 Dextrose (Glutose 40%) 15 gm PO PRN PRN PRN Reason: hypoglycemia Stop: 05/19/17 11:22 Glucagon (Glucagen) 1 mg IM PRN PRN PRN Reason: hypoglycemia Stop: 05/19/17 11:22 Meropenem 1 gm/ Sodium (Chloride) 100 mls @ 100 mls/hr IV Q12HR [facility] Stop: 06/08/17 10:59 Last Admin: 04/14/17 09:07 Dose: 100 mls/hr Insulin Aspart (Novolog Insulin Sliding Scale) 0 units SUBQ Q6HR [facility] PRN Reason: Protocol Stop: 05/19/17 00:00 Last Admin: 04/14/17 12:09 Dose: Not Given Lactulose (Cephulac) 30 gm PO BID [facility] Stop: 05/19/17 16:59 Last Admin: 04/14/17 09:09 Dose: Not Given Magnesium Hydroxide (Milk Of Magnesia) 30 ml GT Q72HR PRN PRN Reason: Constipation Stop: 05/18/17 21:32 Miscellaneous (Vte Chemical Prophylaxis Screen/ Admission) 1 ea [facility] PRN PRN PRN Reason: PROTOCOL Stop: 05/19/17 10:29 Oxcarbazepine (Trileptal) 300 mg GT BID [facility] PRN Reason: Protocol Stop: 05/19/17 08:59 Last Admin: 04/14/17 09:09 Dose: 300 mg Oxybutynin Chloride (Ditropan) 5 mg GT TID [facility] Stop: 05/18/17 21:32 Last Admin: 04/14/17 09:09 Dose: 5 mg Senna (Senna) 8.6 mg GT BID [facility] Stop: 05/19/17 08:59 Last Admin: 04/14/17 09:09 Dose: Not Given Sodium Phosphate (Fleet Enema) 135 ml RC Q96H PRN PRN Reason: Constipation Stop: 05/19/17 11:22 General: no acute distress, well developed, well nourished HEENT: atraumatic, normocephalic Neck: supple, no thyromegaly Cardiovascular: S1S2, regular Lungs: clear to auscultation bilaterally, clear to percussion Abdomen: soft, bowel sounds, other (Suprapubic cath ( PEG)), no tender, no distended, no obese Extremities: no cyanosis, no clubbing, no edema Neurological: awake, alert Skin: intact - Procedures Procedures: Procedures Procedure Code Date CHANGE DRAINAGE DEVICE IN BLADDER, EXTERNAL APPROACH [id number] 03/19/17 NUBIA SUBQ TISSUE 20 SQ CM/< 97154 06/21/13 INJECT ANTIBIOTIC 99.21 11/07/12 INSERT TEMP BLADDER CATH [id number] 03/19/17 NONEXCIS DEBRID OF WOUND, INFECT, OR BURN 86.28 06/21/13 REPLACE INDWELLING CATH 57.95 11/07/12 Infectious Disease Assmt/Plan - Problem List Patient Problems: All Active Problems FEVER WITH ABNORMAL LABS AND WBC (Acute) Decubitus ulcer (Active) L89.90 Fever (Active) R50.9 Urine screening abnormal (Active) - Assessment Assessment: 1. UTI. 2/2 infected suprapubic Ambriz. 2. fecal impaction. 3. Seizure disorder. 4. Mental retardation. 5. Suprapubic catheter, infected and malfunctioning. It has been changed. 6. Dysphagia, and G tube placement. 7. Malfunctioning Suprapubic Catheter. catheter was changed with G tube. 8. Candiduria. 9. Diarrhea. Recommendations: DC antibiotics. patient needs follow up or transfer to higher level of care for appropriate placement of suprapubic catheter by urologist. dw case management again today. DC planning. Nutritional Asmnt/Malnutr-PDOC - Dietary Evaluation Malnutrition Findings (Please click <Entered> for more info): Nutritional Asmnt/Malnutrition Start: 03/21/17 16: 15 Text: Status: Complete Freq: Document 03/21/17 16:18 GSUN (Rec: 03/21/17 16:25 GSUN [email or web address]) Nutritional Asmnt/Malnutrition Patient General Information Nutritional Screening High Risk Screening Diagnosis Fevere r/o sepsis, possible UTI vs intraabdominal infection, fecal impactio Pertinent Medical Hx/Surgical Hx Severe mental retardation, cerebral palsy, seizure disorder, dysphagia with PEG, femur frature, suprapubic cath placement, stage IV decubitus ulcer Subjective Information 36 year old male from SNF. KUB: severely distended stool-filled colon and rectum. Visited pt with RN at bedside . Pt made eye contact with RD, non-verbal, no significant wasting noted. Obsered tube feeding off at this time. RN stated pt had 1 BM overnight, continues to have fever, abdomen distended but soft. Pt tolerating tube feeding well per RN notes and assessments. Current Diet Order/ Nutrition Support Diabetisource at 80ml/hr x 16hrs/day Pertinent Medications Vitamin C, Dulcolax, Glutose 40%, Glucagen, Novolog, MOM, Senna, Nacl 0.9%, Fleet Enema Pertinent Labs 03/20: A1c 6 03/21: glucose 150H Nutritional Hx/Data Height 1.55 m Height (Calculated Centimeters) 154.9 Current Weight (lbs) 56.699 kg Weight (Calculated Kilograms) 56.7 Weight (Calculated Grams) 34058.0 [place] Body Weight 112 Weight Status Approriate GI Symptoms GI Symptoms Constipation Usual diet at home [facility]: Glucerna at 80ml/hr x 16hrs/day Skin Integrity/Comment: Rolando Valdivia. 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 Problem Problem Difficulty swallowing related to Etiology dysphagia severe mental retardation aeb Signs/Symptoms: PEG dependent Intervention/Recommendation Comments 1. Continue with SNF order Diabetisource 80ml/hr x 16hrs/ day, providing 1536kcal and 77g protein, meeting nutritional needs. Expected Outcomes/Goals Expected Outcomes/Goals 1. Pt continue to meet 100% of estimated nutritional needs on tube feeding with tolerance .
== END 2017-04-14 15:00 | disposition home or self-care (01) | DRG 466 ==
LOC: ER 17:58 → TELE 20:10 → MSI 03-24 15:18 → TELE 03-24 18:00 → MSI 03-27 15:04
PROVIDERS: ADMIT Internal Medicine; ATTEND Internal Medicine
PROC: 0T2BX0Z Change Drainage Device in Bladder, External Approach (ICD-10-PCS; principal; 2017-03-19)
DX: T83.518A Infection and inflammatory reaction due to other urinary catheter, initial encounter (principal); A41.9 Sepsis, unspecified organism; L89.94 Pressure ulcer of unspecified site, stage 4; R53.2 Functional quadriplegia; F72 Severe intellectual disabilities; R13.10 Dysphagia, unspecified; E87.1 Hypo-osmolality and hyponatremia; N31.9 Neuromuscular dysfunction of bladder, unspecified; T83.038A Leakage of other urinary catheter, initial encounter; Y83.8 Other surgical procedures as the cause of abnormal reaction of the patient, or of later complication, without mention of misadventure at the time of the procedure; N39.0 Urinary tract infection, site not specified; T83.018A Breakdown (mechanical) of other urinary catheter, initial encounter; K56.41 Fecal impaction; G40.909 Epilepsy, unspecified, not intractable, without status epilepticus; B96.89 Other specified bacterial agents as the cause of diseases classified elsewhere; R19.7 Diarrhea, unspecified; G80.9 Cerebral palsy, unspecified; E11.9 Type 2 diabetes mellitus without complications; Z93.1 Gastrostomy status; Z88.8 Allergy status to other drugs, medicaments and biological substances; Z88.1 Allergy status to other antibiotic agents; Z88.2 Allergy status to sulfonamides; Z87.440 Personal history of urinary (tract) infections; Y92.89 Other specified places as the place of occurrence of the external cause
CPT/HCPCS: 36415-UA; 71010-TC; 74000-TC; 76770-TC; 80048-TC; 80053-TC; 80202-TC; 81001-TC; 82948-90; 83036-90; 83605; 83735-TC; 85007-TC; 85025-TC; 85027-TC; 85610-TC; 85730-TC; 87086-90; 87230-TC; 94640; 94760; J0744; J1644; J1815; J2001; J2185; J3370; J3480; J7030; J7040; J7613; X7704; Z7610

== ENCOUNTER 2017-05-14 13:51 | Inpatient (IN) | payer MEDICAID ==
--- NOTE | 2017-05-14 14:28 | ED Physician Chart ---
Chief Complaint/HPI - Patient Information Date Seen:: 05/14/17 Time Seen:: 13:55 Chief Complaint:: Fever History of Present Illness:: onset x 2 days of fever, cough, and congestion; no report of H/As, Neck Pain, C/ P, SOB, Abd. Pain, A/N/V/D/C, chills, or urinary s/s Allergies:: Allergies Allergy/AdvReac Type Severity Reaction Status Date / Time cephalexin monohydrate Allergy Verified 05/14/16 00:16 [From Keflex] Sulfa (Sulfonamide Allergy Verified 05/14/16 00:16 Antibiotics) Vitals:: Vital Signs - 8 hr 05/14/17 13:55 Temp 101.0 F HR 88 RR 16 BP 126/90 Historian:: Patient, EMS Review:: Nurse's Note Reviewed, Old Chart Reviewed, EMS run form Reviewed, Transfer documents Reviewed Review of Systems - Review of Systems General/Constitutional: Fever, Chills, No weight loss, No weakness, No diaphoresis, No edema, No loss of appetite Skin: Skin lesions, Rash, No bruising Head: No headache, No light-headedness Eyes: No loss of vision, No pain, No diplopia ENT: No earache, Nasal drainage, No sore throat, No tinnitus Neck: No neck pain, No swelling, No thyromegaly, No stiffness, No mass noted Cardio Vascular: No chest pain, No palpitations, No PND, No orthopnea, No edema Pulmonary: No SOB, Cough, No sputum, No wheezing GI: Nausea, Vomiting, Diarrhea, No pain, No melena, No hematochezia, Constipation, No hematemesis G/U: No dysuria, No frequency, No hematuria Musculoskeletal: No bone or joint pain, No back pain, No muscle pain Endocrine: No polyuria, No polydipsia Psychiatric: No prior psych history, No depression, No anxiety, No suicidal ideation Hematopoietic: No bruising, No lymphadenopathy Allergic/Immuno: No urticaria, No angioedema Neurological: No syncope, No focal symptoms, Weakness, No paresthesia, Headache , No seizure, No dizziness, Confusion, No vertigo Past Medical History - Past Medical History Obtainable: Yes Past Medical History: Dementia, Other (Cerebral Palsy) Family History: HTN Social History: Non Smoker, No Alcohol, No Drug Use, Single, Care Facility Surgical History: PEG/GTube Psychiatricy History: Dementia Medication: Reviewed Family Medical History - Family Member Mother History Unknown: Yes Physical Exam - Physical Examination General/Constitutional: Awake, Well-developed, well-nourished, Alert, No distress, GCS 15, Non-toxic appearing, Ambulatory Head: Atraumatic Eyes: Lids, conjuctiva normal, PERRL, EOMI Skin: Nl inspection, No rash, No skin lesions, No ecchymosis, Well hydrated, No lymphadenopathy ENMT: External ears, nose nl, Nasal exam nl, Lips, teeth, gums nl Neck: Nontender, Full ROM w/o pain, No JVD, No nuchal rigidity, No bruit, No mass, No stridor Respiratory: Nl effort/Exclusion Other Respiratory comments:: Lungs: + rales and rhonchi Cardio Vascular: RRR, No murmur, gallop, rubs, NL S1 S2 GI: No tenderness/rebounding/guarding, No organomegaly, No hernia, Normal BS's, Nondistended, No mass/bruits, No McBurney tenderness : No CVA tenderness Extremities: No tenderness or effusion, Full ROM, normal strength in all extremities, No edema, Normal digits & nails Neuro/Psych: Alert/oriented, DTR's symmetric, Normal sensory exam, Normal motor strength, Judgement/insight normal, Mood normal, Normal gait, No focal deficits Other Neuro/Psych comments:: pt is non-verbal Misc: normal gait, Normal back, No paraspinal tenderness Labs/Radiology/EKG Results - Lab Results Comments:: U/A: + Leukocytes; + Blood; + WBCs; + RBCs; + Bacteria ED Septic Shock - . Is Septic Shock (SBP<90, OR Lactate>4 mmol\L) present?: No - <6hrs of presentation: Vital Signs: Vital Signs - 8 hr 05/14/17 13:55 Temp 101.0 F HR 88 RR 16 BP 126/90 Reassessment (Disposition) - Reassessment Reassessment Condition:: Improved - Diagnosis Diagnosis:: Dx: UTI; Cystitis; Sepsis; Urosepsis; Fever - Aftercare/Follow up Instructions Aftercare/Follow-Up Instructions:: Counseled pt regarding lab results/diagnosis & need follow up, Counseled pt & family regarding lab results/diagnosis & need follow up - Patient Disposition Discharge/Transfer:: Acute Care w/in this hosp Accepting Physician:: Dr. Vizcaino Time Called:: 1617 Time Responded:: 16:15 Admitted to:: Telemetry Spoke to:: Dr. Vizcaino Admitting Medical Physician:: Dr. Vizcaino Condition at Disposition:: Stable, Improved
[2017-05-14 14:48] LABS: % BASOPHILS 0.8 % (0.0-2.0); % EOSINOPHILS 3.2 % (0.0-5.0); % LYMPHOCYTES 22.4 % (20.0-50.0); % MONOCYTES 7.8 % (2.0-10.0); % NEUTROPHILS 65.8 % (40.0-80.0); HEMATOCRIT 40.5 % (39.0-49.0); HEMOGLOBIN 13.2 gm/dL (13.2-17.3); MEAN CELL VOLUME 85.8 fl (80-99); MEAN CORPUSCULAR HEMOGLOBIN 27.9 pg (26.0-30.0); MEAN CORPUSCULAR HGB CONC 32.6 pg (28.0-36.0); MEAN PLATELET VOLUME 11.9 fl; NEUTROPHILE ABSOLUTE 4.9 Th/cmm (1.8-8.0); PLATELET COUNT 140 Th/cmm (150-400); RED BLOOD COUNT 4.72 Mil/cmm (4.30-5.70); RED CELL DISTRIBUTION WIDTH 14.3 % (11.5-20.0)
[2017-05-14 14:56] LABS: WHITE BLOOD COUNT 7.5 Th/cmm (4.8-10.8)
[2017-05-14 15:05] LABS: ALB/GLOB RATIO 1.1 (1.0-1.8); ALKALINE PHOSPHATASE 47 U/L (34-104); ANION GAP 10.2 (7.0-16.0); BILIRUBIN,TOTAL 0.4 mg/dL (0.3-1.0); BUN - UREA NITROGEN 19 mg/dL (7-25); BUN/CREATININE RATIO 31.7; CALCIUM SERUM 9.9 mg/dL (8.6-10.3); CARBON DIOXIDE 23.3 mEq/L (21.0-31.0); CHLORIDE 112 mEq/L (98-107); CREATININE - SERUM 0.6 mg/dL (0.7-1.3); GLUCOSE 121 mg/dL (70-105); INR 1.04 (0.5-1.4); POTASSIUM SERUM 3.5 mEq/L (3.5-5.1); PROTHROMBIN TIME (TEST) 10.8 SECONDS (9.5-11.5); SGOT 26 U/L (13-39); SGPT/ALT 16 U/L (7-52); SODIUM SERUM 142 mEq/L (136-145)
--- NOTE | 2017-05-14 15:10 | Diagnostic Imaging Report ---
Portable chest x-ray HISTORY: Fever, shortness of breath The overall heart size appears normal. There is a scoliosis of the thoracic spine convexity to the right. No acute focal pulmonary processes are seen. IMPRESSION: 1. No acute abnormalities
[2017-05-14 15:19] LABS: URINE BILIRUBIN NEGATIVE (NEGATIVE); URINE BLOOD LARGE (NEGATIVE); URINE GLUCOSE (UA) NEGATIVE (NEGATIVE); URINE KETONE TRACE mg/dL (NEGATIVE); URINE PROTEIN 100 mg/dL (NEGATIVE); URINE UROBILINOGEN 0.2 E.U./dL (0.2 - 1.0)
[2017-05-14 15:22] LABS: URINE COLOR YELLOW
[2017-05-14] MEDS ORDERED: Levofloxacin 500mg/100mL 500 MG/100 ML BAG IV ONE ×2 (15:25→15:46)
[2017-05-14 15:29] LABS: URINE RBC 25-50 /hpf (0-5)
[2017-05-14 15:31] LABS: URINE WBC 25-50 /hpf (0-5)
[2017-05-14 15:32] LABS: URINE BACTERIA FEW /hpf (NONE SEEN); URINE EPITHELIAL CELLS NONE SEEN /lpf (FEW); URINE TRIPLE PHOSPHATE CRYSTAL MODERATE /hpf (FEW)
[2017-05-14] MEDS ORDERED: Azithromycin 500 MG in Sodium Chloride 0.9% 250 ML IV ONE (15:56)
[2017-05-14 19:13] LABS: CREATINE KINASE MB 3.5 ng/mL (0.6-6.3)
[2017-05-14 22:53] VITALS: BP 103/60
--- NOTE | 2017-05-15 04:18 | Admit Criteria Form ---
Admit Criteria Forms - Admit Criteria Diagnosis: URINARY COMPLICATIONS Clinical Indications for Inpatient Care (Place 'X' for any and all applicable criteria): Ongoing inpatient care may be indicated for urinary complications with ANY ONE of the following: [ X]I. Urinary tract infection requiring inpatient care as indicated by ANY ONE of the following(8)(19)(20): [ ]a) Severe symptoms (eg, high fever, severe pain) [ ]b) Vomiting or dehydration requiring ongoing inpatient care [X ]c) IV antibiotic needs that cannot be managed at lower level of care [ ]d) Hemodynamic instability [ ]e) Obstruction of collecting system by stone or tumor [ ]II. Urinary retention requiring drainage or surgery (3)(4)(5)(17)(18) [ ]III. Renal failure (Use Renal Failure Criteria for further information.) [ ]IV. Oliguria(30) [ ]V. Post obstructive diuresis requiring close monitoring of urine output and intravenous compensation for excessive fluid losses(33) Extended stay beyond goal length of stay for primary condition may be needed until ALL of the following are present(3)(4)(5)(8): [ ]a) Renal function (creatinine) at baseline, or daily decreases in creatinine consistent with renal function return [ ]b) Voiding adequately or with urinary catheter or percutaneous suprapubic tube and management regimen in place that is performable at lower level of care. [ ]c) Urine output adequate [ ]d) Fever absent or resolving [ ]e) Infection absent or treatable at next level of care The original [employer] content created by [employer] has been revised. The portions of the content which have been revised are identified through the use of italic text or in bold, and [facility] has neither reviewed nor approved the modified material. All other unmodified content is copyright [facility] [employer] Please see references footnoted in the original [facility] [employer] edition 2016 Admit Criteria Met?: Yes
--- NOTE | 2017-05-15 08:35 | History and Physical ---
History of Present Illness - HPI Chief Complaint: Fever HPI: This is a permanent resident of a [facility], who was send for evaluation to ER secondary to fever, During ER evaluation was diagnosed with Urosepsis, reason why patient was hospitalized. 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) GI: Report: Other (Dysphagia, PEG in place.) Psych: Report: Other (MR) Musculoskeletal: Report: Muscle Atrophy, Weakness Rheumatologic: Report: No pertinent Hx Infectious Disease: Report: Other (Frequent UTI) Renal/: Report: UTI Endocrine: Report: Diabetes Dermatology: Report: No Pertinent Hx - Past Surgical History Past Surgical History: No pertinent Hx Family Medical History - Family Member Mother History Unknown: Yes Social History Smoke: No Alcohol: None Drugs: None [facility] Domestic Violence: Negative - Medications Home Medications: Home Medication Medication Instructions Recorded Type Aspirin [Aspirin Chewable] 81 mg GT DAILY 05/14/16 History Cran/Vitc/Mannose/Fos/Bromeln 30 ml GT BID 05/14/16 History [Uti-Stat Liquid] Dextrose [Glucose Gel] 40 % GT PRN PRN 05/14/16 History GLUCAGON HCl [Glucagen] 1 mg IM PRN PRN 05/14/16 History Insulin Lispro [Humalog Kwikpen See Protocol SQ BID 05/14/16 History U-100] Methenamine Hippurate 1 gm GT DAILY 05/14/16 History Multivitamin with Minerals 1 tab GT DAILY 05/14/16 History [Multivitamins with Minerals] Acetaminophen [Tylenol 650 mg GT Q4HR PRN [facility] 04/14/17 Rx 650mg/20.3mL Suspension] Albuterol Nebulizer 2.5mg/3mL 2.5 mg HHN Q4H PRN each 04/14/17 Rx [Albuterol Neb UD*] Ascorbic Acid [Vitamin C] 500 mg GT DAILY [facility] 04/14/17 Rx Bisacodyl [Dulcolax 10 Mg Supp] 10 mg RC Q96H PRN sup 04/14/17 Rx Fleet Enema 135 ml RC Q96H PRN 04/14/17 Rx GLUCAGON HCl [Glucagen] 1 mg IM PRN PRN kit 04/14/17 Rx Insulin Aspart Sliding Scale See Protocol SUBQ Q6HR unit 04/14/17 Rx [NovoLOG INSULIN SLIDING SCALE] Lactulose [Cephulac] 30 gm PO BID [facility] 04/14/17 Rx Magnesium Hydroxide [Milk of 30 ml GT Q72HR PRN [facility] [place] 04/14/17 Rx Magnesia] Meropenem [Merrem] 1 gm IV Q12HR vial 04/14/17 Rx OXcarbazepine [Trileptal] 300 mg GT BID tab 04/14/17 Rx Oxybutynin Chloride [Ditropan*] 5 mg GT TID tab 04/14/17 Rx Sennosides A and B [Senna] 8.6 mg GT BID tab 04/14/17 Rx - Allergies Allergies/Adverse Reactions: Allergies Allergy/AdvReac Type Severity Reaction Status Date / Time cephalexin monohydrate Allergy Verified 05/14/16 00:16 [From Keflex] levofloxacin [From Levaquin] Allergy Verified 05/14/17 23:23 Sulfa (Sulfonamide Allergy Verified 05/14/16 00:16 Antibiotics) Review of Systems - Review of Systems Constitutional: Report: No Significant Eyes: Report: No Significant ENT: Report: No Significant Respiratory: Report: No Significant Cardiovascular: Report: No Significant Gastrointestinal: Report: No Significant Genitourinary: Report: Dysuria Musculoskeletal: Report: No Significant Skin: Report: No Significant Neurological: Report: Weakness Physical Exam - Physical Exam HEENT: Report: Ears Nose Throat within normal limits Neck: Report: Within normal limits Cardiovascular Systems: Report: Regular, Rate and Rhythm Respiratory: Report: Breath Sounds are within normal limits Abdomen: Report: Non-tender to palpation Back: Report: Inspection of back is within normal limits. Extremities: Report: Extremities are contracted Skin: Report: Color of skin is within normal limits Neuro/Psych: Report: Weakness or sensory loss noted. - Lab Results All Lab Results last 24 hours: Laboratory Last Values WBC 7.5 Th/cmm (4.8-10.8) D 05/14/17 14:30 RBC 4.72 Mil/cmm (4.30-5.70) 05/14/17 14:30 Hgb 13.2 gm/dL (13.2-17.3) 05/14/17 14:30 Hct 40.5 % (39.0-49.0) 05/14/17 14:30 MCV 85.8 fl (80-99) 05/14/17 14:30 MCH 27.9 pg (26.0-30.0) 05/14/17 14:30 MCHC Differential 32.6 pg (28.0-36.0) 05/14/17 14:30 RDW 14.3 % (11.5-20.0) 05/14/17 14:30 Plt Count 140 Th/cmm (150-400) L D 05/14/17 14:30 MPV 11.9 fl 05/14/17 14:30 Neutrophils % 65.8 % (40.0-80.0) 05/14/17 14:30 Lymphocytes % 22.4 % (20.0-50.0) 05/14/17 14:30 Monocytes % 7.8 % (2.0-10.0) 05/14/17 14:30 Eosinophils % 3.2 % (0.0-5.0) 05/14/17 14:30 Basophils % 0.8 % (0.0-2.0) 05/14/17 14:30 PT 10.8 SECONDS (9.5-11.5) 05/14/17 14:30 INR 1.04 (0.5-1.4) 05/14/17 14:30 PTT (Actin FS) 23.9 SECONDS (26.0-38.0) L 05/14/17 14:30 Sodium 142 mEq/L (136-145) 05/14/17 14:30 Potassium 3.5 mEq/L (3.5-5.1) 05/14/17 14:30 Chloride 112 mEq/L (98-107) H 05/14/17 14:30 Carbon Dioxide 23.3 mEq/L (21.0-31.0) 05/14/17 14:30 Anion Gap 10.2 (7.0-16.0) 05/14/17 14:30 BUN 19 mg/dL (7-25) 05/14/17 14:30 Creatinine 0.6 mg/dL (0.7-1.3) L 05/14/17 14:30 Est GFR ( Amer) > 60.0 ml/min (>90) 05/14/17 14:30 Est GFR (Non-Af Amer) > 60.0 ml/min 05/14/17 14:30 BUN/Creatinine Ratio 31.7 05/14/17 14:30 Glucose 121 mg/dL (70-105) H 05/14/17 14:30 POC Glucose 120 MG/DL (70 - 105) H 05/15/17 06:44 Whole Bld Lactic Acid 0.93 mmol/L (0.60-1.99) 05/14/17 14:30 Calcium 9.9 mg/dL (8.6-10.3) 05/14/17 14:30 Total Bilirubin 0.4 mg/dL (0.3-1.0) 05/14/17 14:30 AST 26 U/L (13-39) 05/14/17 14:30 ALT 16 U/L (7-52) 05/14/17 14:30 Alkaline Phosphatase 47 U/L (34-104) 05/14/17 14:30 Creatine Kinase 982 U/L (30-223) H 05/14/17 14:30 CK-MB (CK-2) 3.5 ng/mL (0.6-6.3) 05/14/17 14:30 Troponin I < 0.01 ng/mL (0.01-0.05) L 05/14/17 14:30 Total Protein 8.2 gm/dL (6.0-8.3) 05/14/17 14:30 Albumin 4.3 gm/dL (4.2-5.5) 05/14/17 14:30 Globulin 3.9 gm/dL 05/14/17 14:30 Albumin/Globulin Ratio 1.1 (1.0-1.8) 05/14/17 14:30 Urine Source CLEAN C 05/14/17 14:40 Urine Color YELLOW 05/14/17 14:40 Urine Clarity CLOUDY (CLEAR) 05/14/17 14:40 Urine pH 7.0 (4.6 - 8.0) 05/14/17 14:40 Ur Specific [place] 1.020 (1.005-1.030) 05/14/17 14:40 Urine Protein 100 mg/dL (NEGATIVE) H 05/14/17 14:40 Urine Glucose (UA) NEGATIVE mg/dL (NEGATIVE) 05/14/17 14:40 Urine Ketones TRACE mg/dL (NEGATIVE) 05/14/17 14:40 Urine Blood LARGE (NEGATIVE) H 05/14/17 14:40 Urine Nitrate NEGATIVE (NEGATIVE) 05/14/17 14:40 Urine Bilirubin NEGATIVE (NEGATIVE) 05/14/17 14:40 Urine Urobilinogen 0.2 E.U./dL (0.2 - 1.0) 05/14/17 14:40 Ur Leukocyte Esterase MODERATE (NEGATIVE) H 05/14/17 14:40 Urine RBC 25-50 /hpf (0-5) H 05/14/17 14:40 Urine WBC 25-50 /hpf (0-5) H 05/14/17 14:40 Ur Epithelial Cells NONE SEEN /lpf (FEW) 05/14/17 14:40 Triple Phos Crystals MODERATE /hpf (FEW) 05/14/17 14:40 Urine Bacteria FEW /hpf (NONE SEEN) 05/14/17 14:40 Laboratory Results - last 24 hr 05/14/17 05/15/17 23:26 06:44 POC Glucose 101 120 H - Assessment Assessment: Patient is sleeping but arousable, Non verbal, in no acute distress. Dx: Urosepsis, MR, Cerebral palsy, Seizure disorder, Dysphagia PEG in place. - Plan Plan: Patient is on Vanco, IV NS, Insulin sliding scale, and continue with SNF meds. Will continue to monitor.
[2017-05-15 09:22] LABS: % BASOPHILS 0.5 % (0.0-2.0); % EOSINOPHILS 6.4 % (0.0-5.0); % LYMPHOCYTES 19.6 % (20.0-50.0); % MONOCYTES 5.8 % (2.0-10.0); % NEUTROPHILS 67.7 % (40.0-80.0); HEMOGLOBIN 12.1 gm/dL (13.2-17.3); MEAN CELL VOLUME 85.2 fl (80-99); MEAN CORPUSCULAR HEMOGLOBIN 28.7 pg (26.0-30.0); MEAN CORPUSCULAR HGB CONC 33.7 pg (28.0-36.0); MEAN PLATELET VOLUME 10.5 fl; NEUTROPHILE ABSOLUTE 5.5 Th/cmm (1.8-8.0); PLATELET COUNT 123 Th/cmm (150-400); RED BLOOD COUNT 4.21 Mil/cmm (4.30-5.70); RED CELL DISTRIBUTION WIDTH 14.2 % (11.5-20.0); WHITE BLOOD COUNT 8.1 Th/cmm (4.8-10.8)
[2017-05-15 09:27] LABS: HEMATOCRIT 35.9 % (39.0-49.0)
[2017-05-15 10:10] LABS: ALB/GLOB RATIO 1.1 (1.0-1.8); ALKALINE PHOSPHATASE 43 U/L (34-104); ANION GAP 8.2 (7.0-16.0); BILIRUBIN,TOTAL 0.4 mg/dL (0.3-1.0); BUN - UREA NITROGEN 24 mg/dL (7-25); CALCIUM SERUM 9.1 mg/dL (8.6-10.3); CARBON DIOXIDE 25.1 mEq/L (21.0-31.0); CHLORIDE 110 mEq/L (98-107); CREATININE - SERUM 0.5 mg/dL (0.7-1.3); GLUCOSE 125 mg/dL (70-105); POTASSIUM SERUM 3.3 mEq/L (3.5-5.1); SGOT 28 U/L (13-39); SGPT/ALT 23 U/L (7-52); SODIUM SERUM 140 mEq/L (136-145)
[2017-05-15] MEDS: INSULIN ASPART SLIDING SCALE 100 UNITS/ML UNIT SUBQ SCH ×2 (12:48→20:36)
[2017-05-16 06:25] LABS: % BASOPHILS 0.3 % (0.0-2.0); % EOSINOPHILS 4.8 % (0.0-5.0); % LYMPHOCYTES 22.1 % (20.0-50.0); % MONOCYTES 6.4 % (2.0-10.0); % NEUTROPHILS 66.4 % (40.0-80.0); HEMATOCRIT 35.8 % (39.0-49.0); MEAN CELL VOLUME 84.9 fl (80-99); MEAN CORPUSCULAR HEMOGLOBIN 28.5 pg (26.0-30.0); MEAN CORPUSCULAR HGB CONC 33.6 pg (28.0-36.0); MEAN PLATELET VOLUME 11.6 fl; NEUTROPHILE ABSOLUTE 5.6 Th/cmm (1.8-8.0); PLATELET COUNT 136 Th/cmm (150-400); RED BLOOD COUNT 4.22 Mil/cmm (4.30-5.70); RED CELL DISTRIBUTION WIDTH 13.9 % (11.5-20.0); WHITE BLOOD COUNT 8.4 Th/cmm (4.8-10.8)
[2017-05-16 07:04] LABS: ALB/GLOB RATIO 1.1 (1.0-1.8); ALKALINE PHOSPHATASE 43 U/L (34-104); BILIRUBIN,TOTAL 0.6 mg/dL (0.3-1.0); BUN - UREA NITROGEN 19 mg/dL (7-25); CARBON DIOXIDE 25.4 mEq/L (21.0-31.0); CHLORIDE 111 mEq/L (98-107); CREATININE - SERUM 0.5 mg/dL (0.7-1.3); GLUCOSE 111 mg/dL (70-105); POTASSIUM SERUM 3.4 mEq/L (3.5-5.1); SGOT 22 U/L (13-39); SGPT/ALT 13 U/L (7-52); SODIUM SERUM 142 mEq/L (136-145)
[2017-05-16] MEDS: INSULIN ASPART SLIDING SCALE 100 UNITS/ML UNIT SUBQ SCH ×3 (07:30→17:47)
[2017-05-16] MEDS ORDERED: Fleet Enema 135 mL RC PRN (09:17)
[2017-05-16] MEDS ORDERED: GLUCAGON HCl 1 MG KIT IM PRN (09:17)
[2017-05-16] MEDS ORDERED: Magnesium Hydroxide (MOM) 30 mL UDC GT PRN (09:17)
[2017-05-16] MEDS ORDERED: Albuterol Nebulizer 2.5mg/3mL HHN PRN (09:17)
[2017-05-16] MEDS ORDERED: Non-Formulary Item 1 EA (Cran/Vitc/Mannose/Fos/Bromeln [Uti-Stat Liquid] 30 ML) GT SCH (09:30)
--- NOTE | 2017-05-16 09:58 | Diagnostic Imaging Report ---
CHEST X-RAY: AP view INDICATION: Fever COMPARISON: 05/14/2017 FINDINGS: Spinal scoliosis is noted. No focal consolidation or effusions. Heart size normal. Gas-filled loops of bowel are seen along the upper abdomen with copious stool noted. IMPRESSION: No focal consolidation identified Gas-filled loops of bowel with copious amount of stool throughout the upper abdomen.
[2017-05-16] MEDS ORDERED: Aspirin 81mg Chewable Tab GT SCH (12:00)
[2017-05-16] MEDS ORDERED: INSULIN ASPART SLIDING SCALE 100 UNITS/ML UNIT SUBQ SCH (12:00)
[2017-05-16] MEDS: Lactulose 10 Gm/15 mL 30mL UDC PO SCH ×2 (14:51→17:45)
--- NOTE | 2017-06-09 11:44 | Discharge Summary ---
General Discharge Summary - Discharge Summary Date of Admission: 05/14/17 Admitting Diagnosis: Urosepsis, MR, CP, Seizure disorder, Dysphagia Patient Problems: All Active Problems Decubitus ulcer (Active) L89.90 Fever (Active) R50.9 Urine screening abnormal (Active) FEVER WITH ABNORMAL LABS AND WBC (Acute) Discharge Date: 05/15/17 Discharge Diagnosis: Urosepsis, MR, CP, Seizure disorder, Dysphagia Laboratory Findings: Laboratory Tests 05/14/17 05/15/17 05/15/17 23:26 06:44 09:10 WBC 8.1 RBC 4.21 L Hgb 12.1 L Hct 35.9 L D MCV 85.2 MCH 28.7 MCHC Differential 33.7 RDW 14.2 Plt Count 123 L MPV 10.5 Neutrophils % 67.7 Lymphocytes % 19.6 L Monocytes % 5.8 Eosinophils % 6.4 H Basophils % 0.5 Sodium Potassium Chloride Carbon Dioxide Anion Gap BUN Creatinine Est GFR ( Amer) Est GFR (Non-Af Amer) BUN/Creatinine Ratio Glucose POC Glucose 101 120 H Calcium Total Bilirubin AST ALT Alkaline Phosphatase Total Protein Albumin Globulin Albumin/Globulin Ratio Vancomycin Trough 05/15/17 05/15/17 05/15/17 09:10 11:30 12:40 WBC RBC Hgb Hct MCV MCH MCHC Differential RDW Plt Count MPV Neutrophils % Lymphocytes % Monocytes % Eosinophils % Basophils % Sodium 140 Potassium 3.3 L Chloride 110 H Carbon Dioxide 25.1 Anion Gap 8.2 BUN 24 Creatinine 0.5 L Est GFR ( Amer) > 60.0 Est GFR (Non-Af Amer) > 60.0 BUN/Creatinine Ratio 48.0 Glucose 125 H POC Glucose 149 H Calcium 9.1 Total Bilirubin 0.4 AST 28 ALT 23 Alkaline Phosphatase 43 Total Protein 7.2 Albumin 3.7 L Globulin 3.5 Albumin/Globulin Ratio 1.1 Vancomycin Trough 15.8 05/15/17 05/15/17 05/16/17 17:59 20:35 05:45 WBC 8.4 RBC 4.22 L Hgb 12.0 L Hct 35.8 L MCV 84.9 MCH 28.5 MCHC Differential 33.6 RDW 13.9 Plt Count 136 L MPV 11.6 Neutrophils % 66.4 Lymphocytes % 22.1 Monocytes % 6.4 Eosinophils % 4.8 Basophils % 0.3 Sodium Potassium Chloride Carbon Dioxide Anion Gap BUN Creatinine Est GFR ( Amer) Est GFR (Non-Af Amer) BUN/Creatinine Ratio Glucose POC Glucose 109 H 129 H Calcium Total Bilirubin AST ALT Alkaline Phosphatase Total Protein Albumin Globulin Albumin/Globulin Ratio Vancomycin Trough 05/16/17 05/16/17 05/16/17 05:45 06:35 11:32 WBC RBC Hgb Hct MCV MCH MCHC Differential RDW Plt Count MPV Neutrophils % Lymphocytes % Monocytes % Eosinophils % Basophils % Sodium 142 Potassium 3.4 L Chloride 111 H Carbon Dioxide 25.4 Anion Gap 9.0 BUN 19 Creatinine 0.5 L Est GFR ( Amer) > 60.0 Est GFR (Non-Af Amer) > 60.0 BUN/Creatinine Ratio 38.0 Glucose 111 H POC Glucose 109 H 112 H Calcium 9.0 Total Bilirubin 0.6 AST 22 ALT 13 Alkaline Phosphatase 43 Total Protein 7.2 Albumin 3.8 L Globulin 3.4 Albumin/Globulin Ratio 1.1 Vancomycin Trough 05/16/17 17:41 WBC RBC Hgb Hct MCV MCH MCHC Differential RDW Plt Count MPV Neutrophils % Lymphocytes % Monocytes % Eosinophils % Basophils % Sodium Potassium Chloride Carbon Dioxide Anion Gap BUN Creatinine Est GFR ( Amer) Est GFR (Non-Af Amer) BUN/Creatinine Ratio Glucose POC Glucose 104 Calcium Total Bilirubin AST ALT Alkaline Phosphatase Total Protein Albumin Globulin Albumin/Globulin Ratio Vancomycin Trough Hospital Course: Patient was started in Vancomycin IV, continue with SNF meds. With this patient improved Disposition: XFR/INPATIENT REHAB FAC Home Medications: Home Medication Medication Instructions Recorded Type Aspirin [Aspirin Chewable] 81 mg GT DAILY 05/14/16 History Cran/Vitc/Mannose/Fos/Bromeln 30 ml GT BID 05/14/16 History [Uti-Stat Liquid] GLUCAGON HCl [Glucagen] 1 mg IM PRN PRN 05/14/16 History Insulin Lispro [Humalog Kwikpen See Protocol SQ BID 05/14/16 History U-100] Methenamine Hippurate 1 gm GT DAILY 05/14/16 History Multivitamin with Minerals 1 tab GT DAILY 05/14/16 History [Multivitamins with Minerals] Acetaminophen [Tylenol 650 mg GT Q4HR PRN udc 04/14/17 Rx 650mg/20.3mL Suspension] Albuterol Nebulizer 2.5mg/3mL 2.5 mg HHN Q4H PRN each 04/14/17 Rx [Albuterol Neb UD*] Ascorbic Acid [Vitamin C] 500 mg GT DAILY udc 04/14/17 Rx Bisacodyl [Dulcolax 10 Mg Supp] 10 mg RC Q96H PRN sup 04/14/17 Rx Fleet Enema 135 ml RC Q96H PRN 04/14/17 Rx GLUCAGON HCl [Glucagen] 1 mg IM PRN PRN kit 04/14/17 Rx Insulin Aspart Sliding Scale See Protocol SUBQ Q6HR unit 04/14/17 Rx [NovoLOG INSULIN SLIDING SCALE] Lactulose [Cephulac] 30 gm PO BID udc 04/14/17 Rx Magnesium Hydroxide [Milk of 30 ml GT Q72HR PRN udc 04/14/17 Rx Magnesia] OXcarbazepine [Trileptal] 300 mg GT BID tab 04/14/17 Rx Oxybutynin Chloride [Ditropan*] 5 mg GT TID tab 04/14/17 Rx Sennosides A and B [Senna] 8.6 mg GT BID tab 04/14/17 Rx Mupirocin Oint [Mupirocin*] 1 appl NS BID appl 05/16/17 Rx Activity: As Tolerated Discharge Diet: Tube Feeding Consults and Follow-Up: David Vasques [Primary Care Provider] - Consulting Speciality: Other (PCP) Instructions: Li Catheter Care, Adult, [id number], Pressure Ulcer, Urosepsis
== END 2017-05-16 19:52 | DRG 720 ==
LOC: ER 13:51 → TELE 17:23
PROVIDERS: ADMIT General Practice; ATTEND General Practice
DX: A41.9 Sepsis, unspecified organism (principal); F72 Severe intellectual disabilities; R53.2 Functional quadriplegia; F03.90 Unspecified dementia, unspecified severity, without behavioral disturbance, psychotic disturbance, mood disturbance, and anxiety; R13.10 Dysphagia, unspecified; N30.90 Cystitis, unspecified without hematuria; G40.909 Epilepsy, unspecified, not intractable, without status epilepticus; G80.1 Spastic diplegic cerebral palsy; Z88.1 Allergy status to other antibiotic agents; Z88.2 Allergy status to sulfonamides; Z82.49 Family history of ischemic heart disease and other diseases of the circulatory system; Z79.82 Long term (current) use of aspirin; Z93.1 Gastrostomy status
CPT/HCPCS: 36415-UA; 71010-TC; 80053-TC; 80202-TC; 81001-TC; 82550-TC; 82553; 82948-90; 83605; 84484-TC; 85025-TC; 85610-TC; 85730-TC; 87086-90; 93005; 94760; J0456; J1200; J1815; J1956; J3370; J7030; Z7610